=== PATIENT | female | born 1940 | race Caucasian/White ===

== ENCOUNTER 2017-02-05 10:35 | Day surgery (SDC) | payer MEDICARE ==
[2017-02-04 14:23] VITALS: BMI 46.0
[~2017-02-05 10:35] MED LIST: LACTATED RINGERS 1,000 ML IV SCH
[2017-02-05 10:57] VITALS: TEMP 98.8
[2017-02-05] MEDS ORDERED: LIDOCAINE 1% 20 ML VIAL (10MG/ML) FOR IV START INTRADERMA ONE (10:59)
[2017-02-05] MEDS ORDERED: LIDOCAINE 1% INJ 10MG/ML (20 ML MDV) ONE (11:01)
[2017-02-05] MEDS ORDERED: PROPOFOL 10 MG/ML 20 ML VIAL IV ONE (11:01)
--- NOTE | 2017-02-05 11:04 | P.GSHP ---
History of Present Illness H&P Date: 02/05/17 Chief Complaint: GI bleed, GERD This a 76-year-old female who's had complaints of GI bleed and GERD. She does today for EGD and colonoscopy. Patient states his he has anemia. - Constitutional Constitutional: Reports as per HPI Past Medical History Past Medical History: Asthma, Fibromyalgia, GERD/Reflux, Hypertension, Renal Disease, Thyroid Disorder Additional Past Medical History / Comment(s): anemia History of Any Multi-Drug Resistant Organisms: None Reported Past Surgical History: Appendectomy, Hysterectomy, Joint Replacement, Tonsillectomy Additional Past Surgical History / Comment(s): rt knee replacement, rt cataract Past Anesthesia/Blood Transfusion Reactions: Motion Sickness Smoking Status: Former smoker Past Alcohol Use History: None Reported Additional Past Alcohol Use History / Comment(s): smoked 13 years 1ppd quit 1973 Past Drug Use History: None Reported - Past Family History Mother Family Medical History: No Reported History Medications and Allergies Home Medications Medication Instructions Recorded Confirmed Type [id number] 1 each PO DAILY PRN 02/04/17 02/04/17 History [Excedrin] Cetirizine HCl 10 mg PO DAILY 02/04/17 02/04/17 History DULoxetine HCL [Cymbalta] 60 mg PO DAILY 02/04/17 02/04/17 History Ferrous Sulfate [Feosol] 325 mg PO DAILY 02/04/17 02/04/17 History Fluticasone/Salmeterol [Advair 1 inhalation PO BID 02/04/17 02/04/17 History 500-50 Diskus] HYDROcodone/APAP 5-325MG [[place] 1 tab PO BID 02/04/17 02/04/17 History 5-325] Lovastatin [Mevacor] 40 mg PO HS 02/04/17 02/04/17 History Magnesium Gluconate [Magonate] 250 mg PO DAILY 02/04/17 02/04/17 History Melatonin 5 mg PO HS 02/04/17 02/04/17 History Multivitamins, Thera [Multivitamin] 1 tab PO DAILY 02/04/17 02/04/17 History Nortriptyline [Pamelor] 50 mg PO HS 02/04/17 02/04/17 History Omeprazole 20 mg PO BID 02/04/17 02/04/17 History Pregabalin [Lyrica] 75 mg PO BID 02/04/17 02/04/17 History Thyroid,Pork [[place] Thyroid] 90 mg PO DAILY 02/04/17 02/04/17 History Topiramate [Topamax] 100 mg PO BID 02/04/17 02/04/17 History Triamcinolone Acetonide [Nasacort] 1 spray EA NOSTRIL DAILY 02/04/17 02/04/17 History amLODIPine BESYLATE [Norvasc] 5 mg PO BID 02/04/17 02/04/17 History diphenhydrAMINE [Benadryl] 150 mg PO HS 02/04/17 02/04/17 History Allergies Allergy/AdvReac Type Severity Reaction Status Date / Time peanut Allergy Anaphylaxis Verified 02/04/17 13:45 Surgical - Exam Vital Signs Temp Pulse Resp BP Pulse Ox 98.8 F 92 20 157/83 92 L 02/05/17 10:55 02/05/17 10:55 02/05/17 10:55 02/05/17 10:55 02/05/17 10:55 - General well developed, no distress - Eyes PERRL - ENT normal pinna - Neck no masses - Respiratory normal expansion - Cardiovascular Rhythm: regular - Abdomen Abdomen: soft, non tender Assessment and Plan Plan: GERD, GI bleed, anemia. We'll perform EGD and colonoscopy.
--- NOTE | 2017-02-05 11:39 | P.OP ---
Date of Procedure: 02/05/17 Preoperative Diagnosis: Anemia GERD, GI bleed Postoperative Diagnosis: Antral gastritis Internal and external hemorrhoids Implants: EGD Colonoscopy Anesthesia: MAC Surgeon: Joon Salcedo Pathology: other (Antrum) Condition: stable Disposition: PACU Description of Procedure: The patient's placed on the endoscopy table in the lateral position. She received IV sedation. The gastroscope some placed oropharynx and passed into the esophagus and into the stomach. The scope was then placed through the pylorus. The first and second portion of the duodenum appeared normal. The scope was then brought back and the antrum and this appeared mildly inflamed and a biopsy was performed. Scope was then retroflexed and the remainder of the stomach appeared normal. There was no evidence of a hiatal hernia. The GE junction was at 47 is. The distal esophagus appeared normal. The proximal esophagus appeared normal. Scope was withdrawn for patient. Next digital rectal exam was performed which revealed significant external and internal hemorrhoids. The flexible pediatric colonoscope was then placed in the patient's anus passed throughout the colon. The scope was passed into the proximal right colon however the cecum cannot be visualized secondary to tortuosity bowel. This point the scope was withdrawn. The ascending colon hepatic flexure transverse colon descending colon appeared normal. The sigmoid colon appeared normal. The scope was then brought back the rectum this appeared normal. There is no evidence of blood in the colon. The scope was then brought through the anus and significant internal and external hemorrhoids were visualized. The scope was withdrawn for patient. The patient stated prior to the procedure that she does not wish to have a barium enema performed. I would recommend performing outpatient computed tomography scan to evaluate her right colon.
[2017-02-05 11:49] VITALS: RESP 18
[2017-02-05 11:55] VITALS: BP 129/72; PULSE 75
== END 2017-02-05 12:30 | disposition home or self-care (01) ==
LOC: ORWHC2ENDO 10:35
PROVIDERS: ATTEND Surgery
DX: K29.50 Unspecified chronic gastritis without bleeding (principal); Z87.19 Personal history of other diseases of the digestive system; K64.8 Other hemorrhoids; K64.4 Residual hemorrhoidal skin tags; D50.9 Iron deficiency anemia, unspecified; K21.9 Gastro-esophageal reflux disease without esophagitis; J45.909 Unspecified asthma, uncomplicated; M79.7 Fibromyalgia; I10 Essential (primary) hypertension; N28.9 Disorder of kidney and ureter, unspecified; E07.9 Disorder of thyroid, unspecified; Z79.82 Long term (current) use of aspirin; Z79.891 Long term (current) use of opiate analgesic; Z79.51 Long term (current) use of inhaled steroids; Z79.899 Other long term (current) drug therapy; Z91.010 Allergy to peanuts; Z87.891 Personal history of nicotine dependence
CPT/HCPCS: 88305; 88342; 45378; 43239; J2001; J2704

== ENCOUNTER 2017-03-22 06:56 | Day surgery (SDC) | payer MEDICARE ==
[2017-03-21 10:42] VITALS: BMI 41.5
[~2017-03-22 06:56] MED LIST changes: +DEXAMETHASONE SOD PHOSPHATE 10 MG/ML 1 ML VIAL IV ONE; +HEPARIN SODIUM,PORCINE 5,000 UNIT/ML 1 ML VIAL SQ ONE; +HYDROmorphone 1 MG/ML 1 ML SYRINGE IVP PRN; +LIDOCAINE 1% 20 ML VIAL (10MG/ML) FOR IV START INTRADERMA PRN; +MIDAZOLAM 2 MG/2 ML VIAL IV PRN; +ONDANSETRON 4 MG/2 ML VIAL IVP ONE; +Pre Op ABX Message 1 EACH MISC MISCELLANE ONE; +SCOPOLAMINE 1.5MG/72HR PATCH TRANSDERM ONE
[2017-03-22] MEDS ORDERED: LACTATED RINGERS 1,000 ML IV ONE (07:35)
[2017-03-22 07:52] LABS: Glucose,Whole Blood 109 mg/dL (75-99)
[2017-03-22 08:04] LABS: Basophils % (A) 1 %; CH 30.4; CHCM 31.4; Eosinophils # (A) 0.2 k/uL (0-0.7); Eosinophils % (A) 3 %; HCT 32.8 % (34.0-46.0); HGB 10.1 gm/dL (11.4-16.0); Hypochromasia Slight; Luc # (Auto) 0.12; Luc % (Auto) 2; Lymphocytes # (A) 1.4 k/uL (1.0-4.8); Lymphocytes % (A) 22 %; MCH 30.1 pg (25.0-35.0); MCHC 30.8 g/dL (31.0-37.0); MCV 97.5 fL (80.0-100.0); Mean Platelet Volume 8.7; Monocytes # (A) 0.3 k/uL (0-1.0); Monocytes % (A) 5 %; Neutrophils # (A) 4.4 k/uL (1.3-7.7); Neutrophils % (A) 68 %; RBC 3.37 m/uL (3.80-5.40); RDW 14.7 % (11.5-15.5); WBC 6.5 k/uL (3.8-10.6); WBC (Perox) 6.52
[2017-03-22] MEDS ORDERED: NA PHOS,M-B/NA PHOS,DI-BA 133 ML ENEMA RECTAL ONE (08:06)
[2017-03-22 08:24] LABS: Anion Gap 8 mmol/L; Blood Urea Nitrogen 17 mg/dL (7-17); Calcium 8.8 mg/dL (8.4-10.2); Carbon Dioxide 24 mmol/L (22-30); Chloride 112 mmol/L (98-107); Glucose 105 mg/dL (74-99); Non-African American GFR(MDRD) 50 (>60 ml/min/1.73 sqM); Potassium 3.8 mmol/L (3.5-5.1); Sodium 144 mmol/L (137-145)
--- NOTE | 2017-03-22 08:33 | P.GSHP ---
History of Present Illness H&P Date: 03/22/17 Chief Complaint: Internal and external hemorrhoids This a 76-year-old female referred from Dr. Daniel. Patient presents today for hemorrhoidectomy. She's had issues with hemorrhoids. Past Medical History Past Medical History: Asthma, Fibromyalgia, GERD/Reflux, Hearing Disorder / Deafness, Hypertension, Renal Disease, Skin Disorder, Thyroid Disorder Additional Past Medical History / Comment(s): ANEMIA (HX OF IRON INFUSIONS), MIGRAINE HEADACHES, STATES "LITTLE SORES" ON HER FACE AT SCALP LINE., [place] (DOES NOT WEAR HER HEARING AIDS), STATES BLEEDING HEMORRHOIDS. History of Any Multi-Drug Resistant Organisms: None Reported Past Surgical History: Appendectomy, Heart Catheterization, Hysterectomy, Joint Replacement, Tonsillectomy Additional Past Surgical History / Comment(s): rt knee replacement, madonna cataract. Past Anesthesia/Blood Transfusion Reactions: Motion Sickness Past Psychological History: No Psychological Hx Reported Smoking Status: Former smoker Past Alcohol Use History: None Reported Additional Past Alcohol Use History / Comment(s): smoked 13 years ,1ppd, quit 1973 Past Drug Use History: None Reported - Past Family History Mother Family Medical History: No Reported History Father Family Medical History: Cancer Additional Family Medical History / Comment(s): lung cancer Medications and Allergies Home Medications Medication Instructions Recorded Confirmed Type [id number] 1 each PO DAILY PRN 02/04/17 03/21/17 History [Excedrin] Cetirizine HCl 10 mg PO DAILY 02/04/17 03/21/17 History DULoxetine HCL [Cymbalta] 60 mg PO DAILY 02/04/17 03/21/17 History Ferrous Sulfate [Feosol] 325 mg PO DAILY 02/04/17 03/21/17 History Fluticasone/Salmeterol [Advair 1 inhalation PO BID 02/04/17 03/21/17 History 500-50 Diskus] HYDROcodone/APAP 5-325MG [[place] 1 tab PO BID 02/04/17 03/22/17 History 5-325] Lovastatin [Mevacor] 40 mg PO HS 02/04/17 03/21/17 History Magnesium Gluconate [Magonate] 250 mg PO DAILY 02/04/17 03/21/17 History Melatonin 5 mg PO HS 02/04/17 03/21/17 History Multivitamins, Thera [Multivitamin] 1 tab PO DAILY 02/04/17 03/21/17 History Nortriptyline [Pamelor] 50 mg PO HS 02/04/17 03/21/17 History Omeprazole 40 mg PO HS 02/04/17 03/21/17 History Pregabalin [Lyrica] 75 mg PO BID 02/04/17 03/21/17 History Thyroid,Pork [[place] Thyroid] 90 mg PO DAILY 02/04/17 03/21/17 History Topiramate [Topamax] 100 mg PO BID 02/04/17 03/21/17 History Triamcinolone Acetonide [Nasacort] 1 spray EA NOSTRIL HS 02/04/17 03/21/17 History amLODIPine BESYLATE [Norvasc] 5 mg PO DAILY 02/04/17 03/21/17 History diphenhydrAMINE [Benadryl] 150 mg PO HS 02/04/17 03/21/17 History Biotin 5 mg PO DAILY 03/21/17 03/21/17 History Calcium Carbonate/Vitamin D3 1 each PO DAILY 03/21/17 03/21/17 History [Calcium 600-Vit D3 400 Caplet] Ketoconazole 2% Cream [Nizoral 2%] 1 applic TOPICAL BID PRN 03/21/17 03/21/17 History Psyllium Husk (with Sugar) 1 dose PO DAILY 03/21/17 03/21/17 History [Metamucil Powder] Allergies Allergy/AdvReac Type Severity Reaction Status Date / Time peanut Allergy Anaphylaxis Verified 03/21/17 09:37 Surgical - Exam Vital Signs Temp Pulse Resp BP Pulse Ox 98.0 F 89 20 143/78 98 03/22/17 07:26 03/22/17 07:26 03/22/17 07:26 03/22/17 07:26 03/22/17 07:26 - General well developed, no distress - Eyes PERRL - ENT normal pinna - Neck no masses - Respiratory normal expansion - Cardiovascular Rhythm: regular - Abdomen Abdomen: soft - Rectum External/internal hemorrhoids Results - Labs 03/22/17 07:54 03/22/17 07:54 Abnormal Lab Results - Last 24 Hours (Table) 03/22/17 03/22/17 03/22/17 Range/Units 07:41 07:54 07:54 RBC 3.37 L (3.80-5.40) m/uL Hgb 10.1 L (11.4-16.0) gm/dL Hct 32.8 L (34.0-46.0) % MCHC 30.8 L (31.0-37.0) g/dL Chloride 112 H (98-107) mmol/L Creatinine 1.08 H (0.52-1.04) mg/dL Glucose 105 H (74-99) mg/dL POC Glucose (mg/dL) 109 H (75-99) mg/dL Diabetes panel 03/22/17 Range/Units 07:54 Sodium 144 (137-145) mmol/L Potassium 3.8 (3.5-5.1) mmol/L Chloride 112 H (98-107) mmol/L Carbon Dioxide 24 (22-30) mmol/L BUN 17 (7-17) mg/dL Creatinine 1.08 H (0.52-1.04) mg/dL Glucose 105 H (74-99) mg/dL Calcium 8.8 (8.4-10.2) mg/dL Calcium panel 03/22/17 Range/Units 07:54 Calcium 8.8 (8.4-10.2) mg/dL Pituitary panel 03/22/17 Range/Units 07:54 Sodium 144 (137-145) mmol/L Potassium 3.8 (3.5-5.1) mmol/L Chloride 112 H (98-107) mmol/L Carbon Dioxide 24 (22-30) mmol/L BUN 17 (7-17) mg/dL Creatinine 1.08 H (0.52-1.04) mg/dL Glucose 105 H (74-99) mg/dL Calcium 8.8 (8.4-10.2) mg/dL Adrenal panel 03/22/17 Range/Units 07:54 Sodium 144 (137-145) mmol/L Potassium 3.8 (3.5-5.1) mmol/L Chloride 112 H (98-107) mmol/L Carbon Dioxide 24 (22-30) mmol/L BUN 17 (7-17) mg/dL Creatinine 1.08 H (0.52-1.04) mg/dL Glucose 105 H (74-99) mg/dL Calcium 8.8 (8.4-10.2) mg/dL Assessment and Plan Plan: Internal and external hemorrhoids. We'll perform hemorrhoidectomy.
[2017-03-22] MEDS ORDERED: BUPIVACAIN-EPI 0.25%-1:200,000 30 ML VIAL SQ ONE (08:55)
[2017-03-22] MEDS ORDERED: PROPOFOL 10 MG/ML 20 ML VIAL IV ONE (09:09)
[2017-03-22] MEDS ORDERED: NEOSTIGMINE 1 MG/ML 10 ML VIAL ONE (09:09)
[2017-03-22] MEDS ORDERED: LIDOCAINE 1% INJ 10MG/ML (20 ML MDV) ONE (09:09)
[2017-03-22] MEDS ORDERED: GLYCOPYRROLATE 0.2 MG/ML 2 ML VIAL ONE (09:09)
[2017-03-22] MEDS ORDERED: ROCURONIUM BROMIDE 10 MG/ML 10 ML VIAL IV ONE (09:09)
[2017-03-22] MEDS ORDERED: MIDAZOLAM 2 MG/2 ML VIAL ONE (09:09)
[2017-03-22] MEDS ORDERED: fentaNYL (PF) 50 MCG/ML 2 ML AMP ONE (09:09)
[2017-03-22] MEDS ORDERED: SUCCINYLCHOLINE CHLORIDE 100 MG/5 ML SYR IV ONE (09:09)
[2017-03-22] MEDS ORDERED: GELATIN SPONGE,ABSORB (SMALL) 1 EACH SPONGE TOPICAL ONE (09:47)
[2017-03-22] MEDS ORDERED: GELATIN SPONGE,ABSORB (LARGE) 1 EACH SPONGE TOPICAL ONE (09:48)
--- NOTE | 2017-03-22 09:55 | P.OP ---
Date of Procedure: 03/22/17 Preoperative Diagnosis: Internal and external hemorrhoids Postoperative Diagnosis: Internal and external hemorrhoids Procedure(s) Performed: Internal and external hemorrhoidectomy Anesthesia: PERLA Surgeon: Joon Salcedo Estimated Blood Loss (ml): 5 Pathology: other (Internal and external hemorrhoids) Condition: stable Disposition: PACU Description of Procedure: The patient's placed on the operating table in the prone jackknife position after receiving general anesthesia. Her perianal area was prepped and draped in usual sterile fashion. The patient significant internal and external hemorrhoids. The left lateral hemorrhoidal column was exposed using the anal retractor and then using the Harmonic scissors the hemorrhoidectomy was performed. Allis clamps were used to grasp the internal and external hemorrhoids then the hemorrhoid was performed using the Harmonic scissors. Next the right anterior and right posterior hemorrhoidal column were removed in identical fashion. The perianal area was injected with 1% local Xylocaine. The anus was inspected for bleeding there is no bleeding seen. The anus was then packed with Gelfoam. Patient was sent to recovery room stable condition.
[2017-03-22 10:17] VITALS: TEMP 97.4
[2017-03-22 11:38] VITALS: RESP 20
[2017-03-22] MEDS ORDERED: HYDROcodone/APAP 7.5-325MG 1 EACH TAB PO ONE (11:53)
[2017-03-22 12:17] VITALS: BP 128/63; PULSE 84
== END 2017-03-22 13:08 | disposition home or self-care (01) ==
LOC: OR 06:56
PROVIDERS: ATTEND Surgery
DX: K64.8 Other hemorrhoids (principal); K64.4 Residual hemorrhoidal skin tags; J45.909 Unspecified asthma, uncomplicated; Z87.891 Personal history of nicotine dependence; M79.7 Fibromyalgia; K21.9 Gastro-esophageal reflux disease without esophagitis; I10 Essential (primary) hypertension; E07.9 Disorder of thyroid, unspecified; N19 Unspecified kidney failure; Z79.82 Long term (current) use of aspirin; Z79.891 Long term (current) use of opiate analgesic; Z79.51 Long term (current) use of inhaled steroids; Z79.899 Other long term (current) drug therapy; Z91.010 Allergy to peanuts
CPT/HCPCS: 93005; 88304; 80048; 85025; 46260; J2250; J1644; J1100; J2710; J2405; J2001; J3010; J0330; J2704

== ENCOUNTER → 2017-09-16 | Outpatient (CLI) | payer MEDICARE ==
--- NOTE | 2017-09-17 09:01 | MM ---
Reason for exam: screening (asymptomatic). Last mammogram was performed 1 year and 2 months ago. History: Patient is postmenopausal. Physical Findings: A clinical breast exam by your physician is recommended on an annual basis and results should be correlated with mammographic findings. MG 3D Screening Mammo W/Cad Bilateral CC and MLO view(s) were taken. Prior study comparison: July 05, 2016, bilateral MG screening mammo w CAD. January 05, 2015, bilateral MG screening mammo w CAD. There are scattered fibroglandular densities. There is no discrete abnormality. No significant changes when compared with prior studies. ASSESSMENT: Negative, BI-RAD 1 RECOMMENDATION: Routine screening mammogram of both breasts in 1 year.
== END | disposition home or self-care (01) ==
LOC: RADMAMWWP 14:33
PROVIDERS: ATTEND Family Medicine
DX: Z12.31 Encounter for screening mammogram for malignant neoplasm of breast (principal)
CPT/HCPCS: 77063; G0202

== ENCOUNTER 2018-01-06 12:10 | Inpatient (IN) | payer MEDICARE ==
[2018-01-06] MEDS ORDERED: IPRATROPIUM-ALBUTEROL 3 ML NEB INHALATION STA ×2 (12:41→15:25)
[2018-01-06] MEDS ORDERED: methylPREDNISolone SOD SUCCI 125 MG/2 ML VIAL IV STA (12:41)
[2018-01-06] MEDS ORDERED: LEVOFLOXACIN 750MG-D5W PMX 750 MG in DEXTROSE/WATER 1 150ML.BAG IVPB STA (12:41)
--- NOTE | 2018-01-06 13:33 | ED ---
SOB HPI - General Chief Complaint: Shortness of Breath Stated Complaint: Diff Breathing Time Seen by Provider: 01/06/18 12:35 Source: patient Mode of arrival: ambulatory Limitations: no limitations - History of Present Illness Initial Comments: This 77-year-old white female presents with a complaint of shortness of breath and wheezing. She has had this for approximately one week. She has a long history of asthma. She barely saw her primary care physician this morning and they gave her breathing treatment and sent her to the emergency department. She apparently was on some steroids last week for this as well. She's been coughing significantly and has had some yellowish greenish production. She denies any actual fevers. She denies any chest pain. The shortness of breath is worse with any exertion. She has chronic leg pain due to her fibromyalgia but there is no change. She rates her symptoms is fairly severe. No other complaints or modifying factors. - Related Data Home Medications Medication Instructions Recorded Confirmed Cetirizine HCl 10 mg PO DAILY 02/04/17 01/06/18 DULoxetine HCL [Cymbalta] 60 mg PO DAILY 02/04/17 01/06/18 Ferrous Sulfate [Feosol] 325 mg PO DAILY 02/04/17 01/06/18 Fluticasone/Salmeterol [Advair 1 inhalation PO RT-BID 02/04/17 01/06/18 500-50 Diskus] Lovastatin [Mevacor] 40 mg PO HS 02/04/17 01/06/18 Melatonin 5 mg PO HS 02/04/17 01/06/18 Multivitamins, Thera [Multivitamin] 1 tab PO DAILY 02/04/17 01/06/18 Nortriptyline [Pamelor] 50 mg PO HS 02/04/17 01/06/18 Omeprazole 40 mg PO HS 02/04/17 01/06/18 Thyroid,Pork [[place] Thyroid] 90 mg PO DAILY 02/04/17 01/06/18 Topiramate [Topamax] 100 mg PO BID 02/04/17 01/06/18 Triamcinolone Acetonide [Nasacort] 1 spray EA NOSTRIL HS 02/04/17 01/06/18 amLODIPine BESYLATE [Norvasc] 5 mg PO DAILY 02/04/17 01/06/18 diphenhydrAMINE [Benadryl] 150 mg PO HS 02/04/17 01/06/18 Calcium Carbonate/Vitamin D3 1 tab PO BID 03/21/17 01/06/18 [Calcium 600-Vit D3 400 Caplet] Ketoconazole 2% Cream [Nizoral 2%] 1 applic TOPICAL BID PRN 03/21/17 01/06/18 Celecoxib [CeleBREX] 200 mg PO DAILY 01/06/18 01/06/18 Magnesium Oxide [Mag-Ox] 250 mg PO DAILY 01/06/18 01/06/18 Nadolol [Corgard] 20 mg PO DAILY 01/06/18 01/06/18 Spironolactone 50 mg PO DAILY 01/06/18 01/06/18 Allergies Allergy/AdvReac Type Severity Reaction Status Date / Time peanut Allergy Anaphylaxis Verified 01/06/18 13:17 Review of Systems ROS Statement: Those systems with pertinent positive or pertinent negative responses have been documented in the HPI. ROS Other: All systems not noted in ROS Statement are negative. Past Medical History Past Medical History: Asthma, Fibromyalgia, GERD/Reflux, Hearing Disorder / Deafness, Hypertension, Renal Disease, Skin Disorder, Thyroid Disorder Additional Past Medical History / Comment(s): ANEMIA (HX OF IRON INFUSIONS), MIGRAINE HEADACHES, STATES "LITTLE SORES" ON HER FACE AT SCALP LINE., [place] (DOES NOT WEAR HER HEARING AIDS), STATES BLEEDING HEMORRHOIDS. History of Any Multi-Drug Resistant Organisms: None Reported Past Surgical History: Appendectomy, Heart Catheterization, Hysterectomy, Joint Replacement, Tonsillectomy Additional Past Surgical History / Comment(s): rt knee replacement, madonna cataract. Past Anesthesia/Blood Transfusion Reactions: Motion Sickness Past Psychological History: No Psychological Hx Reported Smoking Status: Former smoker Past Alcohol Use History: None Reported Past Drug Use History: None Reported - Past Family History Mother Family Medical History: No Reported History Father Family Medical History: Cancer Additional Family Medical History / Comment(s): lung cancer General Exam - General Exam Comments Initial Comments: GENERAL: The patient is well nourished and well hydrated. VITAL SIGNS: Heart rate, blood pressure, respiratory rate reviewed as recorded in nurse's notes. EYES: Pupils are round and reactive. Extraocular movements are intact. No conjunctival / lid redness or swelling. ENT: No external evidence of injury, swelling, or ecchymosis. Airway is patent. Throat is clear. NECK: Nontender. No swelling or evidence of injury. No subcutaneous emphysema. Trachea is midline. No thyroid mass. HEART: Regular rate and rhythm. Good peripheral pulses. LUNGS/CHEST: Significant wheezing is noted bilaterally. No ecchymosis, subcutaneous emphysema, or tenderness. ABDOMEN: Abdomen soft without tenderness. No palpable masses or organomegaly. No peritoneal signs. No abdominal wall swelling or ecchymosis. EXTREMITIES: There is mild diffuse tenderness to the legs. Normal muscle tone and function. No thoracolumbar tenderness. NEUROLOGIC: Sensation is grossly intact. Cranial nerve exam reveals face is symmetrical, tongue is midline, speech is clear. SKIN: No abrasions or ecchymosis is noted. No induration or masses noted. PSYCHIATRIC: Alert and oriented. Appropriate behavior and judgment. Limitations: no limitations Course Vital Signs 01/06/18 01/06/18 01/06/18 12:28 13:42 13:43 Temperature 98.2 F Pulse Rate 69 60 Respiratory 18 18 Rate Blood Pressure 138/77 O2 Sat by Pulse 93 L 97 Oximetry 01/06/18 13:58 Temperature Pulse Rate 60 Respiratory Rate Blood Pressure O2 Sat by Pulse Oximetry Medical Decision Making - Medical Decision Making The patient was seen and examined. All diagnostics were reviewed. EKG shows a normal sinus rhythm at a rate of 63. There is no acute ST-T wave changes noted. The ME intervals 142, QRS duration is 84, and the QTc interval is 415. The patient also receives some IV Solu-Medrol and a double DuoNeb breathing treatment. She also receives IV Levaquin. The laboratories reviewed and does show some hyponatremia as well as some renal insufficiency and elevation of CO2. The chest x-ray is reviewed and shows some bronchial thickening and likely pneumonia. Upon my evaluation the chest x-ray does appear that she likely does have left lower lobe pneumonia. On recheck she states that she does not feel any better. Her influenza test came back positive. Additional breathing treatments are ordered. It is felt as though she would require admission to hospital for further treatment and she is agreeable. Case will be discussed with internal medicine shortly. - Lab Data Result diagrams: 01/06/18 13:30 01/06/18 13:30 Lab Results 01/06/18 01/06/18 01/06/18 Range/Units 13:30 13:30 13:30 WBC 7.5 (3.8-10.6) k/uL RBC 3.84 (3.80-5.40) m/uL Hgb 11.4 (11.4-16.0) gm/dL Hct 37.5 (34.0-46.0) % MCV 97.8 (80.0-100.0) fL MCH 29.7 (25.0-35.0) pg MCHC 30.4 L (31.0-37.0) g/dL RDW 14.0 (11.5-15.5) % Plt Count 157 (150-450) k/uL Neutrophils % 70 % Lymphocytes % 20 % Monocytes % 8 % Eosinophils % 0 % Basophils % 0 % Neutrophils # 5.3 (1.3-7.7) k/uL Lymphocytes # 1.5 (1.0-4.8) k/uL Monocytes # 0.6 (0-1.0) k/uL Eosinophils # 0.0 (0-0.7) k/uL Basophils # 0.0 (0-0.2) k/uL Hypochromasia Slight PT (9.0-12.0) sec INR (<1.2) APTT (22.0-30.0) sec Sodium 149 H (137-145) mmol/L Potassium 3.9 (3.5-5.1) mmol/L Chloride 110 H (98-107) mmol/L Carbon Dioxide 32 H (22-30) mmol/L Anion Gap 7 mmol/L BUN 34 H (7-17) mg/dL Creatinine 1.30 H (0.52-1.04) mg/dL Est GFR (MDRD) Af Amer 48 (>60 ml/min/1.73 sqM) Est GFR (MDRD) Non-Af 40 (>60 ml/min/1.73 sqM) Glucose 80 (74-99) mg/dL Calcium 8.7 (8.4-10.2) mg/dL Total Bilirubin 0.2 (0.2-1.3) mg/dL AST 34 (14-36) U/L ALT 42 (9-52) U/L Alkaline Phosphatase 89 (38-126) U/L Total Creatine Kinase 141 H (30-135) U/L CK-MB (CK-2) 2.3 (0.0-2.4) ng/mL CK-MB (CK-2) Rel Index 1.6 Troponin I 0.012 (0.000-0.034) ng/mL NT-Pro-B Natriuret Pep pg/mL Total Protein 6.4 (6.3-8.2) g/dL Albumin 3.3 L (3.5-5.0) g/dL Influenza Type A RNA (Not Detectd) Influenza Type B (PCR) (Not Detectd) 01/06/18 01/06/18 01/06/18 Range/Units 13:30 13:30 13:30 WBC (3.8-10.6) k/uL RBC (3.80-5.40) m/uL Hgb (11.4-16.0) gm/dL Hct (34.0-46.0) % MCV (80.0-100.0) fL MCH (25.0-35.0) pg MCHC (31.0-37.0) g/dL RDW (11.5-15.5) % Plt Count (150-450) k/uL Neutrophils % % Lymphocytes % % Monocytes % % Eosinophils % % Basophils % % Neutrophils # (1.3-7.7) k/uL Lymphocytes # (1.0-4.8) k/uL Monocytes # (0-1.0) k/uL Eosinophils # (0-0.7) k/uL Basophils # (0-0.2) k/uL Hypochromasia PT 10.4 (9.0-12.0) sec INR 1.1 (<1.2) APTT 22.4 (22.0-30.0) sec Sodium (137-145) mmol/L Potassium (3.5-5.1) mmol/L Chloride (98-107) mmol/L Carbon Dioxide (22-30) mmol/L Anion Gap mmol/L BUN (7-17) mg/dL Creatinine (0.52-1.04) mg/dL Est GFR (MDRD) Af Amer (>60 ml/min/1.73 sqM) Est GFR (MDRD) Non-Af (>60 ml/min/1.73 sqM) Glucose (74-99) mg/dL Calcium (8.4-10.2) mg/dL Total Bilirubin (0.2-1.3) mg/dL AST (14-36) U/L ALT (9-52) U/L Alkaline Phosphatase (38-126) U/L Total Creatine Kinase (30-135) U/L CK-MB (CK-2) (0.0-2.4) ng/mL CK-MB (CK-2) Rel Index Troponin I (0.000-0.034) ng/mL NT-Pro-B Natriuret Pep 905 pg/mL Total Protein (6.3-8.2) g/dL Albumin (3.5-5.0) g/dL Influenza Type A RNA Detected H (Not Detectd) Influenza Type B (PCR) Not Detected (Not Detectd) Disposition Clinical Impression: Asthma exacerbation, Hypoxia, Dyspnea, Bronchospasm, Influenza, Pneumonia, Morbid obesity, Hypernatremia Disposition: ADMITTED IP TO THIS HOSP Condition: Fair Referrals: Ariane Daniel DO [Primary Care Provider] - 1-2 days Time of Disposition: 15:28 Decision Date: 01/06/18 Decision Time: 15:28
[2018-01-06 13:58] LABS: Basophils % (A) 0 %; Eosinophils % (A) 0 %; HCT 37.5 % (34.0-46.0); HGB 11.4 gm/dL (11.4-16.0); Hypochromasia Slight; Lymphocytes # (A) 1.5 k/uL (1.0-4.8); Lymphocytes % (A) 20 %; MCH 29.7 pg (25.0-35.0); MCHC 30.4 g/dL (31.0-37.0); MCV 97.8 fL (80.0-100.0); Mean Platelet Volume 7.4; Monocytes # (A) 0.6 k/uL (0-1.0); Monocytes % (A) 8 %; Neutrophils # (A) 5.3 k/uL (1.3-7.7); Neutrophils % (A) 70 %; Platelet Count 157 k/uL (150-450); RBC 3.84 m/uL (3.80-5.40); WBC 7.5 k/uL (3.8-10.6)
[2018-01-06 14:05] LABS: INR 1.1 (<1.2); Partial Thromboplastin Time 22.4 sec (22.0-30.0); Prothrombin Time 10.4 sec (9.0-12.0)
[2018-01-06 14:14] LABS: Albumin 3.3 g/dL (3.5-5.0); Calcium 8.7 mg/dL (8.4-10.2); Potassium 3.9 mmol/L (3.5-5.1); Total Bilirubin 0.2 mg/dL (0.2-1.3); Total Protein 6.4 g/dL (6.3-8.2)
[2018-01-06 14:31] LABS: Creatine Kinase MB 2.3 ng/mL (0.0-2.4); Troponin I 0.012 ng/mL (0.000-0.034)
--- NOTE | 2018-01-06 15:13 | XR ---
EXAMINATION TYPE: XR chest 2V DATE OF EXAM: 01/06/2018 COMPARISON: None HISTORY: 77-year-old female difficulty breathing, wheezing and cough TECHNIQUE: AP and lateral views FINDINGS: The heart is mildly enlarged. Slight prominence to the right side of the mediastinum is unchanged fro m CT of 10/30/2017. Peribronchial cuffing is present. No consolidation or pleural effusion. Degenerati ve changes in the IMPRESSION: 1. Mild cardiomegaly. 2. Bronchial wall thickening could reflect bronchitis, chronic asthma, atypical pneumonias, or mild p ulmonary vascular congestion.
[2018-01-06] MEDS ORDERED: PNEUMONIA PROTOCOL UTILIZED 1 EACH MISC PO PRN (15:28)
[2018-01-06] MEDS ORDERED: CLOTRIMAZOLE 1% CREAM 15 GM TUBE TOPICAL PRN (15:30)
[2018-01-06] MEDS ORDERED: OSELTAMIVIR 75 MG CAP PO SCH (16:00)
[2018-01-06 17:45] LABS: Glucose,Whole Blood 106 mg/dL (75-99)
[2018-01-06] MEDS: methylPREDNISolone SOD SUCCI 125 MG/2 ML VIAL IV SCH ×2 (18:08→21:36)
[2018-01-06] MEDS ORDERED: BUDESONIDE 0.5 MG/2 ML NEBU INHALATION SCH (20:00)
[2018-01-06 20:51] LABS: Glucose,Whole Blood 148 mg/dL (75-99)
[2018-01-06] MEDS ORDERED: diphenhydrAMINE 50 MG CAP PO SCH (21:00)
[2018-01-06] MEDS: NORTRIPTYLINE 25 MG CAP PO SCH (21:24)
[2018-01-06] MEDS: CALCIUM CARB-VIT D 500MG-200UN 1 EACH TAB PO SCH (21:24)
[2018-01-06] MEDS: MELATONIN 5 MG TABLET PO SCH (21:24)
[2018-01-06] MEDS: TOPIRAMATE 100 MG TAB PO SCH (21:24)
[2018-01-06] MEDS: PANTOPRAZOLE 40 MG TABLET PO SCH (21:24)
[2018-01-06] MEDS: ZOLPIDEM 5 MG TAB PO SCH (21:24)
[2018-01-06] MEDS: ATORVASTATIN 10 MG TAB PO SCH (21:25)
[2018-01-06] MEDS: FLUTICASONE 50MCG/SPRAY NASAL 16GM EA NOSTRIL SCH (21:26)
[2018-01-06] MEDS: INSULIN ASPART 100 UNIT/ML 1 ML 10 ML VIAL SQ SCH (21:35)
[2018-01-06] MEDS: SYMBICORT 160-4.5 MCG INHALER INHALATION SCH (21:49)
[2018-01-06] MEDS: IPRATROPIUM-ALBUTEROL 3 ML NEB INHALATION PRN (21:53)
[2018-01-07 03:40] LABS: Hemoglobin A1C 6.3 % (4.0-6.0)
[2018-01-07] MEDS: THYROID, PORK 30 MG TAB PO SCH (06:29)
[2018-01-07] MEDS: OSELTAMIVIR 60 MG/10 ML ORAL SYRINGE PO SCH ×2 (06:31→20:25)
[2018-01-07] MEDS: IPRATROPIUM-ALBUTEROL 3 ML NEB INHALATION PRN (07:08)
[2018-01-07] MEDS: SYMBICORT 160-4.5 MCG INHALER INHALATION SCH ×2 (07:08→20:33)
[2018-01-07 08:10] LABS: Glucose,Whole Blood 168 mg/dL (75-99)
[2018-01-07] MEDS: ENOXAPARIN 40 MG/0.4 ML SYRINGE SQ SCH (08:15)
[2018-01-07] MEDS: methylPREDNISolone SOD SUCCI 125 MG/2 ML VIAL IV SCH ×4 (08:16→21:22)
[2018-01-07] MEDS: INSULIN ASPART 100 UNIT/ML 1 ML 10 ML VIAL SQ SCH ×4 (08:16→21:20)
[2018-01-07] MEDS: MELOXICAM 7.5 MG TAB PO SCH (08:17)
[2018-01-07] MEDS: LORATADINE 10 MG TAB PO SCH (08:17)
[2018-01-07] MEDS: SPIRONOLACTONE 25 MG TAB PO SCH (08:18)
[2018-01-07] MEDS: DULoxetine HCL 60 MG CAPSULE.DR PO SCH (08:18)
[2018-01-07] MEDS: MAGNESIUM OXIDE 400 MG TAB PO SCH (08:18)
[2018-01-07] MEDS: amLODIPine 5 MG TAB PO SCH (08:18)
[2018-01-07] MEDS: NADOLOL 20 MG TAB PO SCH (08:18)
[2018-01-07] MEDS: CALCIUM CARB-VIT D 500MG-200UN 1 EACH TAB PO SCH ×2 (08:18→20:25)
[2018-01-07] MEDS: TOPIRAMATE 100 MG TAB PO SCH ×2 (08:19→20:25)
[2018-01-07] MEDS: FERROUS SULFATE 325 MG TAB PO SCH (08:19)
[2018-01-07] MEDS: MULTIVITAMINS, THERA 1 EACH TAB PO SCH (08:19)
[2018-01-07 09:36] LABS: Basophils % (A) 0 %; Eosinophils % (A) 0 %; HGB 10.8 gm/dL (11.4-16.0); Hypochromasia Marked; Lymphocytes # (A) 1.1 k/uL (1.0-4.8); Lymphocytes % (A) 18 %; MCH 29.5 pg (25.0-35.0); MCHC 29.1 g/dL (31.0-37.0); MCV 101.1 fL (80.0-100.0); Macrocytosis Slight; Mean Platelet Volume 7.2; Monocytes # (A) 0.3 k/uL (0-1.0); Monocytes % (A) 5 %; Neutrophils # (A) 4.4 k/uL (1.3-7.7); Neutrophils % (A) 75 %; Platelet Count 158 k/uL (150-450); RBC 3.66 m/uL (3.80-5.40); RDW 13.8 % (11.5-15.5); WBC 5.9 k/uL (3.8-10.6)
[2018-01-07 09:44] LABS: Albumin 3.2 g/dL (3.5-5.0); Calcium 9.4 mg/dL (8.4-10.2); Potassium 4.6 mmol/L (3.5-5.1); Total Bilirubin 0.2 mg/dL (0.2-1.3); Total Protein 6.1 g/dL (6.3-8.2)
[2018-01-07] MEDS: IPRATROPIUM-ALBUTEROL 3 ML NEB INHALATION SCH ×3 (10:55→20:35)
--- NOTE | 2018-01-07 11:34 | P.HPIM ---
History of Present Illness H&P Date: 01/07/18 Chief Complaint: Cough with shortness of breath This is a 77-year-old female patient of [facility]. She has a known history of asthma, fibromyalgia, GERD, chronic kidney disease, hypothyroidism and chronic back pain. Patient reports that she has been dealing with a cough since October. However over the last week she is has been struggling with her breathing. She was in to see her back last week and who was concerned about her breathing until surgery report to her family doctor. That same day patient was seen by her PCP and was started on steroids and oral antibiotics. Patient completed treatment was indeed the be evaluated for follow-up yesterday. Her symptoms were not improving and her PCP recommended that she goes to the emergency room. Patient has been admitted to the hospital for influenza A, asthma exacerbation and possible pneumonia. She' s been started on Tamiflu Levaquin and IV Solu-Medrol and bronchodilators. Pulmonary service has been consulted. She is requiring oxygen. She also was found to have some mild acute kidney injury on top for chronic kidney disease with creatinine of 1.30. She is hypernatremic with a sodium 149. Patient denies any fever chills or sweats. Denies any chest pain. Denies any nausea vomiting. Denies any bowel movement changes or urinary symptoms. Review of Systems Please refer to HPI otherwise unremarkable Past Medical History Past Medical History: Asthma, Fibromyalgia, GERD/Reflux, Hearing Disorder / Deafness, Hyperlipidemia, Hypertension, Pneumonia, Renal Disease, Skin Disorder , Thyroid Disorder Additional Past Medical History / Comment(s): ANEMIA (HX OF IRON INFUSIONS), CHRONIC BACK PAIN DDD, BACK INJ,MIGRAINE HEADACHES, STATES "LITTLE SORES" ON HER FACE AT SCALP LINE., [place] (DOES NOT WEAR HER HEARING AIDS),past BLEEDING HEMORRHOIDS (had sx).SINUS,"TOLD ONE KIDNEY SMALLER THAN OTHER AND ONE KIDNEY HAS A CYST ON IT.DIVERTICULOSIS. History of Any Multi-Drug Resistant Organisms: None Reported Past Surgical History: Appendectomy, Heart Catheterization, Hysterectomy, Joint Replacement, Tonsillectomy Additional Past Surgical History / Comment(s): rt knee replacement, madonna cataract.COLONOSCOPY, HEMORRHOIDECTOMY. Past Anesthesia/Blood Transfusion Reactions: Motion Sickness Smoking Status: Former smoker - Past Family History Mother Family Medical History: No Reported History Father Family Medical History: Cancer Additional Family Medical History / Comment(s): lung cancer Medications and Allergies Home Medications Medication Instructions Recorded Confirmed Type Cetirizine HCl 10 mg PO DAILY 02/04/17 01/06/18 History DULoxetine HCL [Cymbalta] 60 mg PO DAILY 02/04/17 01/06/18 History Ferrous Sulfate [Feosol] 325 mg PO DAILY 02/04/17 01/06/18 History Fluticasone/Salmeterol [Advair 1 inhalation PO RT-BID 02/04/17 01/06/18 History 500-50 Diskus] Lovastatin [Mevacor] 40 mg PO HS 02/04/17 01/06/18 History Melatonin 5 mg PO HS 02/04/17 01/06/18 History Multivitamins, Thera [Multivitamin] 1 tab PO DAILY 02/04/17 01/06/18 History Nortriptyline [Pamelor] 50 mg PO HS 02/04/17 01/06/18 History Omeprazole 40 mg PO HS 02/04/17 01/06/18 History Thyroid,Pork [[place] Thyroid] 90 mg PO DAILY 02/04/17 01/06/18 History Topiramate [Topamax] 100 mg PO BID 02/04/17 01/06/18 History Triamcinolone Acetonide [Nasacort] 1 spray EA NOSTRIL HS 02/04/17 01/06/18 History amLODIPine BESYLATE [Norvasc] 5 mg PO DAILY 02/04/17 01/06/18 History diphenhydrAMINE [Benadryl] 150 mg PO HS 02/04/17 01/06/18 History Calcium Carbonate/Vitamin D3 1 tab PO BID 03/21/17 01/06/18 History [Calcium 600-Vit D3 400 Caplet] Ketoconazole 2% Cream [Nizoral 2%] 1 applic TOPICAL BID PRN 03/21/17 01/06/18 History Celecoxib [CeleBREX] 200 mg PO DAILY 01/06/18 01/06/18 History Magnesium Oxide [Mag-Ox] 250 mg PO DAILY 01/06/18 01/06/18 History Nadolol [Corgard] 20 mg PO DAILY 01/06/18 01/06/18 History Spironolactone 50 mg PO DAILY 01/06/18 01/06/18 History Allergies Allergy/AdvReac Type Severity Reaction Status Date / Time peanut Allergy Anaphylaxis Verified 01/06/18 13:17 Physical Exam Vitals: Vital Signs Temp Pulse Pulse Resp BP BP Pulse Ox 01/07/18 11:08 78 01/07/18 10:55 76 01/07/18 07:26 74 01/07/18 07:12 76 95 01/07/18 07:00 98.2 F 75 18 154/94 95 01/06/18 23:00 98.2 F 74 20 160/101 92 L 01/06/18 22:06 72 01/06/18 21:53 72 01/06/18 18:19 18 01/06/18 17:50 92 L 01/06/18 17:45 97.7 F 77 22 155/84 89 L 01/06/18 17:03 98.1 F 80 18 160/72 99 01/06/18 16:13 62 01/06/18 15:50 64 01/06/18 15:33 71 20 155/72 93 L 01/06/18 15:28 99 01/06/18 13:58 60 01/06/18 13:43 18 97 01/06/18 13:42 60 01/06/18 12:28 98.2 F 69 18 138/77 93 L Intake and Output 01/06/18 01/07/18 01/07/18 22:59 06:59 14:59 Other: Voiding Method Toilet # Voids 2 1 Head normocephalic Neck supple Lungs coarse presses with mild wheezing bilaterally Heart regular rate and rhythm S1-S2, no rub or gallop Abdomen is soft nontender nondistended positive bowel sounds no hepatosplenomegaly Extremities no edema Neuro alert and orientated to 3 Results CBC & Chem 7: 01/07/18 08:54 01/07/18 08:54 Labs: Abnormal Lab Results - Last 24 Hours (Table) 01/06/18 01/06/18 01/06/18 Range/Units 13:00 13:30 13:30 RBC (3.80-5.40) m/uL Hgb (11.4-16.0) gm/dL MCV (80.0-100.0) fL MCHC 30.4 L (31.0-37.0) g/dL Sodium (137-145) mmol/L Chloride (98-107) mmol/L Carbon Dioxide (22-30) mmol/L BUN (7-17) mg/dL Creatinine (0.52-1.04) mg/dL Glucose (74-99) mg/dL POC Glucose (mg/dL) (75-99) mg/dL Hemoglobin A1c 6.3 H (4.0-6.0) % Total Creatine Kinase 141 H (30-135) U/L Total Protein (6.3-8.2) g/dL Albumin (3.5-5.0) g/dL Influenza Type A RNA (Not Detectd) 01/06/18 01/06/18 01/06/18 Range/Units 13:30 13:30 17:39 RBC (3.80-5.40) m/uL Hgb (11.4-16.0) gm/dL MCV (80.0-100.0) fL MCHC (31.0-37.0) g/dL Sodium 149 H (137-145) mmol/L Chloride 110 H (98-107) mmol/L Carbon Dioxide 32 H (22-30) mmol/L BUN 34 H (7-17) mg/dL Creatinine 1.30 H (0.52-1.04) mg/dL Glucose (74-99) mg/dL POC Glucose (mg/dL) 106 H (75-99) mg/dL Hemoglobin A1c (4.0-6.0) % Total Creatine Kinase (30-135) U/L Total Protein (6.3-8.2) g/dL Albumin 3.3 L (3.5-5.0) g/dL Influenza Type A RNA Detected H (Not Detectd) 01/06/18 01/07/18 01/07/18 Range/Units 20:49 07:29 08:54 RBC 3.66 L (3.80-5.40) m/uL Hgb 10.8 L (11.4-16.0) gm/dL MCV 101.1 H (80.0-100.0) fL MCHC 29.1 L (31.0-37.0) g/dL Sodium (137-145) mmol/L Chloride (98-107) mmol/L Carbon Dioxide (22-30) mmol/L BUN (7-17) mg/dL Creatinine (0.52-1.04) mg/dL Glucose (74-99) mg/dL POC Glucose (mg/dL) 148 H 168 H (75-99) mg/dL Hemoglobin A1c (4.0-6.0) % Total Creatine Kinase (30-135) U/L Total Protein (6.3-8.2) g/dL Albumin (3.5-5.0) g/dL Influenza Type A RNA (Not Detectd) 01/07/18 Range/Units 08:54 RBC (3.80-5.40) m/uL Hgb (11.4-16.0) gm/dL MCV (80.0-100.0) fL MCHC (31.0-37.0) g/dL Sodium (137-145) mmol/L Chloride (98-107) mmol/L Carbon Dioxide (22-30) mmol/L BUN 36 H (7-17) mg/dL Creatinine 1.26 H (0.52-1.04) mg/dL Glucose 220 H (74-99) mg/dL POC Glucose (mg/dL) (75-99) mg/dL Hemoglobin A1c (4.0-6.0) % Total Creatine Kinase (30-135) U/L Total Protein 6.1 L (6.3-8.2) g/dL Albumin 3.2 L (3.5-5.0) g/dL Influenza Type A RNA (Not Detectd) Thrombosis Risk Factor Assmnt - Choose All That Apply Any of the Below Risk Factors Present?: Yes Each Factor Represents 1 point: Obesity (BMI >25), Serious lung disease incl. pneumonia (< 1month), Swollen legs (current) Each Risk Factor Represents 3 Points: Age 75 years or older Other congenital or acquired thrombophilia - If yes, enter type in comment: No Thrombosis Risk Factor Assessment Total Risk Factor Score: 6 Thrombosis Risk Factor Assessment Level: High Risk Assessment and Plan Assessment: 1. Acute asthma exacerbation: Continue IV Solu-Medrol and bronchodilators. Pulmonary service consulted 2. Influenza A positive continue Tamiflu 3. possible pneumonia on chest x-ray. Patient started on Levaquin in the emergency room 4. Acute on chronic kidney disease stage3. Creatinine is improving. Down from 1.30-1.26 encouraged by mouth fluid intake. Currently off of IV fluids. Does follow nephrology in outpatient setting 5. Hypernatremia on admission with a sodium of 149 now down to 144. 6. Fibromyalgia 7. Chronic back pain 8. Hypothyroidism 9. Hyperlipidemia continue Lipitor 10. Essential hypertension continue Norvasc 11. Steroid-induced hyperglycemia: Continue sliding scale coverage GI prophylaxis Protonix and DVT prophylaxis Lovenox Time with Patient: Greater than 30 (Greater than 50% of the total time spent in counseling and coordination of care. I performed an examination of the patient and discussed their management with the physician Locker Room Supervisor. I have reviewed the Physician Locker Room Supervisor's notes and agree with the documented findings and plan of care)
--- NOTE | 2018-01-07 12:22 | P.CNPUL ---
History of Present Illness Consult date: 01/07/18 Requesting physician: Nancy Cuba Reason for consult: dyspnea, cough, abnormal CXR/CT Chief complaint: Shortness of breath, cough, chills History of present illness: Mrs. Sahni is a 77-year-old white female patient of Dr. Daniel that presented to the hospital on 01/06/2018 at 1210 with complaints of increasing shortness of breath, wheezing, chills, congested cough. Her cough was productive with yellowish greenish sputum. Symptoms had started about a week ago. Patient has muscle aches on a regular basis related to her history of fibromyalgia. She saw her primary care physician who treated her with a breathing treatment, some steroids. She denied any actual fevers she denied any chest pain. Chest x-ray from 01/06/2018 showed mild cardiomegaly, bronchial wall thickening that could be reflective of bronchitis, chronic asthma , atypical pneumonia or mild pulmonary vascular congestion. Twelve-lead EKG showed normal sinus rhythm with a rate of 63 bpm. Lab work did not show any evidence of leukocytosis, WBC was 7.5, hemoglobin 11.4, serum sodium was 149, BUN is 34, creatinine is 1.30. Influenza screen was positive for influenza A. She was started on Tamiflu, Levaquin, nebulized treatments, IV steroids, Symbicort and was admitted for further management. Review of Systems All systems: negative Constitutional: Denies chills, Denies fever Eyes: denies blurred vision, denies pain Ears, nose, mouth and throat: Denies headache, Denies sore throat Cardiovascular: Denies chest pain, Denies shortness of breath Respiratory: Denies cough Gastrointestinal: Denies abdominal pain, Denies diarrhea, Denies nausea, Denies vomiting Genitourinary: Denies dysuria, Denies hematuria Musculoskeletal: Denies myalgias Integumentary: Denies pruritus, Denies rash Neurological: Denies numbness, Denies weakness Psychiatric: Denies anxiety, Denies depression Endocrine: Denies fatigue, Denies weight change Past Medical History Past Medical History: Asthma, Fibromyalgia, GERD/Reflux, Hearing Disorder / Deafness, Hyperlipidemia, Hypertension, Pneumonia, Renal Disease, Skin Disorder , Thyroid Disorder Additional Past Medical History / Comment(s): ANEMIA (HX OF IRON INFUSIONS), CHRONIC BACK PAIN DDD, BACK INJ,MIGRAINE HEADACHES, STATES "LITTLE SORES" ON HER FACE AT SCALP LINE., [place] (DOES NOT WEAR HER HEARING AIDS),past BLEEDING HEMORRHOIDS (had sx).SINUS,"TOLD ONE KIDNEY SMALLER THAN OTHER AND ONE KIDNEY HAS A CYST ON IT.DIVERTICULOSIS. History of Any Multi-Drug Resistant Organisms: None Reported Past Surgical History: Appendectomy, Heart Catheterization, Hysterectomy, Joint Replacement, Tonsillectomy Additional Past Surgical History / Comment(s): rt knee replacement, madonna cataract.COLONOSCOPY, HEMORRHOIDECTOMY. Past Anesthesia/Blood Transfusion Reactions: Motion Sickness Smoking Status: Former smoker - Past Family History Mother Family Medical History: No Reported History Father Family Medical History: Cancer Additional Family Medical History / Comment(s): lung cancer Medications and Allergies Home Medications Medication Instructions Recorded Confirmed Type Cetirizine HCl 10 mg PO DAILY 02/04/17 01/06/18 History DULoxetine HCL [Cymbalta] 60 mg PO DAILY 02/04/17 01/06/18 History Ferrous Sulfate [Feosol] 325 mg PO DAILY 02/04/17 01/06/18 History Fluticasone/Salmeterol [Advair 1 inhalation PO RT-BID 02/04/17 01/06/18 History 500-50 Diskus] Lovastatin [Mevacor] 40 mg PO HS 02/04/17 01/06/18 History Melatonin 5 mg PO HS 02/04/17 01/06/18 History Multivitamins, Thera [Multivitamin] 1 tab PO DAILY 02/04/17 01/06/18 History Nortriptyline [Pamelor] 50 mg PO HS 02/04/17 01/06/18 History Omeprazole 40 mg PO HS 02/04/17 01/06/18 History Thyroid,Pork [[place] Thyroid] 90 mg PO DAILY 02/04/17 01/06/18 History Topiramate [Topamax] 100 mg PO BID 02/04/17 01/06/18 History Triamcinolone Acetonide [Nasacort] 1 spray EA NOSTRIL HS 02/04/17 01/06/18 History amLODIPine BESYLATE [Norvasc] 5 mg PO DAILY 02/04/17 01/06/18 History diphenhydrAMINE [Benadryl] 150 mg PO HS 02/04/17 01/06/18 History Calcium Carbonate/Vitamin D3 1 tab PO BID 03/21/17 01/06/18 History [Calcium 600-Vit D3 400 Caplet] Ketoconazole 2% Cream [Nizoral 2%] 1 applic TOPICAL BID PRN 03/21/17 01/06/18 History Celecoxib [CeleBREX] 200 mg PO DAILY 01/06/18 01/06/18 History Magnesium Oxide [Mag-Ox] 250 mg PO DAILY 01/06/18 01/06/18 History Nadolol [Corgard] 20 mg PO DAILY 01/06/18 01/06/18 History Spironolactone 50 mg PO DAILY 01/06/18 01/06/18 History Allergies Allergy/AdvReac Type Severity Reaction Status Date / Time peanut Allergy Anaphylaxis Verified 01/06/18 13:17 Physical Exam Vitals: Vital Signs Temp Pulse Pulse Resp BP BP Pulse Ox 01/07/18 11:08 78 01/07/18 10:55 76 01/07/18 07:26 74 01/07/18 07:12 76 95 01/07/18 07:00 98.2 F 75 18 154/94 95 01/06/18 23:00 98.2 F 74 20 160/101 92 L 01/06/18 22:06 72 01/06/18 21:53 72 01/06/18 18:19 18 01/06/18 17:50 92 L 01/06/18 17:45 97.7 F 77 22 155/84 89 L 01/06/18 17:03 98.1 F 80 18 160/72 99 01/06/18 16:13 62 01/06/18 15:50 64 01/06/18 15:33 71 20 155/72 93 L 01/06/18 15:28 99 01/06/18 13:58 60 01/06/18 13:43 18 97 01/06/18 13:42 60 01/06/18 12:28 98.2 F 69 18 138/77 93 L Intake and Output 01/06/18 01/07/18 01/07/18 22:59 06:59 14:59 Other: Voiding Method Toilet # Voids 2 1 2 GENERAL EXAM: Alert, 77-year-old white female, comfortable in no apparent distress. HEAD: Normocephalic/atraumatic. EYES: Normal reaction of pupils, equal size. Conjunctiva pink, sclera white. NOSE: Clear with pink turbinates. THROAT: No erythema or exudates. NECK: No masses, no JVD, no thyroid enlargement, no adenopathy. CHEST: No chest wall deformity. Symmetrical expansion. LUNGS: Equal air entry with scattered wheezes CVS: Regular rate and rhythm, normal S1 and S2, no gallops, no murmurs, no rubs ABDOMEN: Soft, nontender. No hepatosplenomegaly, normal bowel sounds, no guarding or rigidity. EXTREMITIES: No clubbing, no edema, no cyanosis, 2+ pulses and upper and lower extremities. MUSCULOSKELETAL: Muscle strength and tone normal. SPINE: No scoliosis or deformity SKIN: No rashes CENTRAL NERVOUS SYSTEM: Alert and oriented -3. No focal deficits, tone is normal in all 4 extremities. PSYCHIATRIC: Alert and oriented -3. Appropriate affect. Intact judgment and insight. Results - Laboratory Findings CBC and BMP: 01/07/18 08:54 01/07/18 08:54 PT/INR, D-dimer PT 10.4 sec (9.0-12.0) 01/06/18 13:30 INR 1.1 (<1.2) 01/06/18 13:30 Abnormal lab findings: Abnormal Labs 01/06/18 01/06/18 01/06/18 13:00 13:30 13:30 RBC Hgb MCV MCHC 30.4 L Sodium Chloride Carbon Dioxide BUN Creatinine Glucose POC Glucose (mg/dL) Hemoglobin A1c 6.3 H Total Creatine Kinase 141 H Total Protein Albumin Influenza Type A RNA 01/06/18 01/06/18 01/06/18 13:30 13:30 17:39 RBC Hgb MCV MCHC Sodium 149 H Chloride 110 H Carbon Dioxide 32 H BUN 34 H Creatinine 1.30 H Glucose POC Glucose (mg/dL) 106 H Hemoglobin A1c Total Creatine Kinase Total Protein Albumin 3.3 L Influenza Type A RNA Detected H 01/06/18 01/07/18 01/07/18 20:49 07:29 08:54 RBC 3.66 L Hgb 10.8 L MCV 101.1 H MCHC 29.1 L Sodium Chloride Carbon Dioxide BUN Creatinine Glucose POC Glucose (mg/dL) 148 H 168 H Hemoglobin A1c Total Creatine Kinase Total Protein Albumin Influenza Type A RNA 01/07/18 08:54 RBC Hgb MCV MCHC Sodium Chloride Carbon Dioxide BUN 36 H Creatinine 1.26 H Glucose 220 H POC Glucose (mg/dL) Hemoglobin A1c Total Creatine Kinase Total Protein 6.1 L Albumin 3.2 L Influenza Type A RNA - Diagnostic Findings Chest x-ray: report reviewed Additional studies: Twelve-lead EKG reviewed Assessment and Plan Plan: Assessment: #1. Acute asthma exacerbation, complicated by influenza A tracheobronchitis, chest x-ray was negative for any clear-cut evidence of pneumonia #2. Acute on chronic kidney disease, patient follows with nephrology on an outpatient basis #3. Hypernatremia, present on admission #4. Nicotine dependence, currently in remission, quit in 1973 #5. Fibromyalgia #6. GERD/reflux #7. Hyperlipidemia, hypertension #8. Hypothyroidism Plan: Continue with current medical treatment, continue Tamiflu, Levaquin, DuoNeb belies treatments, IV Solu-Medrol. Patient already reports some improvement in terms of her dyspnea and wheezing. Chest x-ray did not show any clear evidence of pneumonia. I performed a history & physical examination of the patient and discussed their management with my nurse practitioner, Bhargavi Lucia. I reviewed the nurse practitioner's note and agree with the documented findings and plan of care. Lung sounds are positive for scattered wheezes. The findings and the impression was discussed with the patient. I attest to the documentation by the nurse practitioner. Time with Patient: Greater than 30
[2018-01-07 12:27] LABS: Glucose,Whole Blood 121 mg/dL (75-99)
[2018-01-07] MEDS ORDERED: LEVOFLOXACIN 750MG-D5W PMX 750 MG in DEXTROSE/WATER 1 150ML.BAG IVPB SCH (14:00)
[2018-01-07 17:22] LABS: Glucose,Whole Blood 155 mg/dL (75-99)
[2018-01-07] MEDS: LEVOFLOXACIN 750 MG TAB PO SCH (18:20)
[2018-01-07] MEDS: ZOLPIDEM 5 MG TAB PO SCH (20:25)
[2018-01-07] MEDS: NORTRIPTYLINE 25 MG CAP PO SCH (20:25)
[2018-01-07] MEDS: FLUTICASONE 50MCG/SPRAY NASAL 16GM EA NOSTRIL SCH (20:25)
[2018-01-07] MEDS: PANTOPRAZOLE 40 MG TABLET PO SCH (20:25)
[2018-01-07] MEDS: ATORVASTATIN 10 MG TAB PO SCH (20:25)
[2018-01-07] MEDS: MELATONIN 5 MG TABLET PO SCH (20:25)
[2018-01-07 21:07] LABS: Glucose,Whole Blood 127 mg/dL (75-99)
[2018-01-08] MEDS: THYROID, PORK 30 MG TAB PO SCH (05:36)
[2018-01-08] MEDS: OSELTAMIVIR 60 MG/10 ML ORAL SYRINGE PO SCH ×2 (06:33→18:35)
[2018-01-08 07:51] LABS: Glucose,Whole Blood 136 mg/dL (75-99)
[2018-01-08] MEDS: MELOXICAM 7.5 MG TAB PO SCH (08:32)
[2018-01-08] MEDS: LORATADINE 10 MG TAB PO SCH (08:32)
[2018-01-08] MEDS: methylPREDNISolone SOD SUCCI 125 MG/2 ML VIAL IV SCH ×4 (08:32→22:28)
[2018-01-08] MEDS: MAGNESIUM OXIDE 400 MG TAB PO SCH (08:32)
[2018-01-08] MEDS: TOPIRAMATE 100 MG TAB PO SCH ×2 (08:32→22:02)
[2018-01-08] MEDS: NADOLOL 20 MG TAB PO SCH (08:32)
[2018-01-08] MEDS: INSULIN ASPART 100 UNIT/ML 1 ML 10 ML VIAL SQ SCH ×4 (08:33→22:06)
[2018-01-08] MEDS: CALCIUM CARB-VIT D 500MG-200UN 1 EACH TAB PO SCH ×2 (08:33→22:03)
[2018-01-08] MEDS: SPIRONOLACTONE 25 MG TAB PO SCH (08:33)
[2018-01-08] MEDS: ENOXAPARIN 40 MG/0.4 ML SYRINGE SQ SCH (08:33)
[2018-01-08] MEDS: DULoxetine HCL 60 MG CAPSULE.DR PO SCH (08:33)
[2018-01-08] MEDS: amLODIPine 5 MG TAB PO SCH (08:33)
[2018-01-08 09:11] LABS: Basophils % (A) 0 %; Eosinophils % (A) 0 %; HCT 37.5 % (34.0-46.0); HGB 11.5 gm/dL (11.4-16.0); Lymphocytes % (A) 14 %; MCH 29.7 pg (25.0-35.0); MCHC 30.7 g/dL (31.0-37.0); MCV 96.7 fL (80.0-100.0); Mean Platelet Volume 7.3; Monocytes # (A) 0.3 k/uL (0-1.0); Monocytes % (A) 5 %; Neutrophils # (A) 5.7 k/uL (1.3-7.7); Neutrophils % (A) 79 %; Platelet Count 175 k/uL (150-450); RBC 3.88 m/uL (3.80-5.40); RDW 13.5 % (11.5-15.5); WBC 7.2 k/uL (3.8-10.6)
[2018-01-08] MEDS: IPRATROPIUM-ALBUTEROL 3 ML NEB INHALATION SCH ×4 (09:14→20:46)
[2018-01-08] MEDS: SYMBICORT 160-4.5 MCG INHALER INHALATION SCH ×2 (09:15→20:46)
[2018-01-08 09:31] LABS: Albumin 3.2 g/dL (3.5-5.0); Calcium 9.3 mg/dL (8.4-10.2); Potassium 4.6 mmol/L (3.5-5.1); Total Bilirubin 0.3 mg/dL (0.2-1.3); Total Protein 6.1 g/dL (6.3-8.2)
[2018-01-08 11:53] LABS: Glucose,Whole Blood 122 mg/dL (75-99)
--- NOTE | 2018-01-08 13:03 | P.PN ---
Subjective Progress Note Date: 01/08/18 Principal diagnosis: Acute asthma exacerbation, triggered by influenza A tracheobronchitis Mrs. Sahni is a 77-year-old white female patient of Dr. Daniel that presented to the hospital on 01/06/2018 at 1210 with complaints of increasing shortness of breath, wheezing, chills, congested cough. Her cough was productive with yellowish greenish sputum. Symptoms had started about a week ago. Patient has muscle aches on a regular basis related to her history of fibromyalgia. She saw her primary care physician who treated her with a breathing treatment, some steroids. She denied any actual fevers she denied any chest pain. Chest x-ray from 01/06/2018 showed mild cardiomegaly, bronchial wall thickening that could be reflective of bronchitis, chronic asthma , atypical pneumonia or mild pulmonary vascular congestion. Twelve-lead EKG showed normal sinus rhythm with a rate of 63 bpm. Lab work did not show any evidence of leukocytosis, WBC was 7.5, hemoglobin 11.4, serum sodium was 149, BUN is 34, creatinine is 1.30. Influenza screen was positive for influenza A. She was started on Tamiflu, Levaquin, nebulized treatments, IV steroids, Symbicort and was admitted for further management. On 01/08/2018 patient seen in follow-up. Still remains significantly dyspneic with any exertion, even with ambulation short distances in the room. Lung sounds are positive for end expiratory wheezes, diminished lung sounds throughout. Not bringing up much sputum. She is on 2 L per nasal cannula with O2 sat 96%. She is afebrile. Blood cultures are negative at the 24-hour shante. States she is not back to her baseline yet. We spoke to the patient's daughter regarding her condition, we discussed with her that the patient will need a follow-up on an outpatient basis for evaluation of her pulmonary lung function, asthma, and optimization of her asthma. Today's lab work shows that the BC within normal limits of 7.2, hemoglobin is 11.5, electrolytes are within normal limits, BUN is 37, creatinine is 1.24. Increase patient's activity as tolerated, continue IV steroids, Tamiflu, Levaquin, nebulized treatments and Symbicort. Objective - Vital Signs Vital signs: Vital Signs Temp 98.0 F 01/08/18 07:00 Pulse 72 01/08/18 09:36 Resp 18 02/14/18 09:15 BP 147/84 01/08/18 07:00 Pulse Ox 96 01/08/18 07:00 Intake & Output 01/07/18 01/08/18 01/08/18 18:59 06:59 18:59 Other: # Voids 2 2 - Exam GENERAL EXAM: Alert, 77-year-old white female, comfortable in no apparent distress. HEAD: Normocephalic/atraumatic. EYES: Normal reaction of pupils, equal size. Conjunctiva pink, sclera white. NOSE: Clear with pink turbinates. THROAT: No erythema or exudates. NECK: No masses, no JVD, no thyroid enlargement, no adenopathy. CHEST: No chest wall deformity. Symmetrical expansion. LUNGS: Equal air entry with scattered wheezes CVS: Regular rate and rhythm, normal S1 and S2, no gallops, no murmurs, no rubs ABDOMEN: Soft, nontender. No hepatosplenomegaly, normal bowel sounds, no guarding or rigidity. EXTREMITIES: No clubbing, no edema, no cyanosis, 2+ pulses and upper and lower extremities. MUSCULOSKELETAL: Muscle strength and tone normal. SPINE: No scoliosis or deformity SKIN: No rashes CENTRAL NERVOUS SYSTEM: Alert and oriented -3. No focal deficits, tone is normal in all 4 extremities. PSYCHIATRIC: Alert and oriented -3. Appropriate affect. Intact judgment and insight. - Labs CBC & Chem 7: 01/08/18 08:09 01/08/18 08:09 Labs: Abnormal Lab Results - Last 24 Hours (Table) 01/07/18 01/07/18 01/08/18 Range/Units 16:59 21:06 07:30 MCHC (31.0-37.0) g/dL BUN (7-17) mg/dL Creatinine (0.52-1.04) mg/dL Glucose (74-99) mg/dL POC Glucose (mg/dL) 155 H 127 H 136 H (75-99) mg/dL Total Protein (6.3-8.2) g/dL Albumin (3.5-5.0) g/dL 01/08/18 01/08/18 01/08/18 Range/Units 08:09 08:09 11:48 MCHC 30.7 L (31.0-37.0) g/dL BUN 37 H (7-17) mg/dL Creatinine 1.24 H (0.52-1.04) mg/dL Glucose 135 H (74-99) mg/dL POC Glucose (mg/dL) 122 H (75-99) mg/dL Total Protein 6.1 L (6.3-8.2) g/dL Albumin 3.2 L (3.5-5.0) g/dL Microbiology - Last 24 Hours (Table) 01/06/18 13:30 Blood Culture - Preliminary Blood No Growth after 24 hours Assessment and Plan Plan: Assessment: #1. Acute asthma exacerbation, complicated by influenza A tracheobronchitis, chest x-ray was negative for any clear-cut evidence of pneumonia #2. Acute on chronic kidney disease, patient follows with nephrology on an outpatient basis #3. Hypernatremia, mild, present on admission. Improved, today's sodium is 4.6 #4. Nicotine dependence, currently in remission, quit in 1973 #5. Fibromyalgia #6. GERD/reflux #7. Hyperlipidemia, hypertension #8. Hypothyroidism Plan: Continue with current medical treatment, continue Tamiflu, Levaquin, DuoNeb belies treatments, IV Solu-Medrol. Patient still complaining of significant exertional dyspnea, not ready for discharge yet. We'll continue to follow with you. Patient will need an outpatient follow-up appointment with Dr. Cruz. I performed a history & physical examination of the patient and discussed their management with my nurse practitioner, Bhargavi Lucia. I reviewed the nurse practitioner's note and agree with the documented findings and plan of care. Lung sounds are positive for scattered wheezes. The findings and the impression was discussed with the patient. I attest to the documentation by the nurse practitioner. Time with Patient: Less than 30
[2018-01-08] MEDS: FERROUS SULFATE 325 MG TAB PO SCH (13:09)
[2018-01-08] MEDS: MULTIVITAMINS, THERA 1 EACH TAB PO SCH (13:09)
--- NOTE | 2018-01-08 13:48 | CDI ---
Last Revision, October 2017 Documentation Clarification Form Date: 01/08/2018 1:07:00 PM From: Caitlin Baron RN, CCDS Admit Date: 01/06/2018 3:28:00 PM Patient Name: Concha Sahni Visit Number: [id number] Discharge Date: ATTENTION: The Clinical Documentation Specialists (CDI) and [facility] Coding Staff appreciate your assistance in clarifying documentation. Please respond to the clarification below the line at the bottom and electronically sign. The CDI & [facility] Coding staff will review the response and follow-up if needed. Please note: Queries are made part of the Legal Health Record. If you have any questions, please contact the author of this message via ITS. Dr. Nancy Cuba Acute Asthma exacerbation is documented in the progress note on 01/08/18. Patient history/risk factors: Asthma, Fibromyalgia, Hypertension, Renal Disease Clinical Indicators: Present with increasing shortness of breath, wheezing, chills, and congested cough. 01/06/18 CXR: mild cardiomegaly, bronchial wall thickening that could be reflective of bronchitis, chronic asthma, atypical pneumonia or mild pulmonary vascular congestion Vital Signs: 138/77 69 18 98.2 93 % RA Treatment: Levaquin IV, Solu-Medrol IV (taper) Monitor O2 Sat's Nebulized treatments Symbicort Inhalation Claritin PO In your professional opinion, can you please further specify the Acute Asthma Exacerbation to indicate the following, if known? With: Acute lower respiratory infection COPD (specify with or without exacerbation) Chronic obstructive bronchitis Other, please specify Unable to determine Severity: Mild intermittent Mild persistent Moderate persistent Severe persistent Other, please specify Unable to determine Form or Type: Cough variant Childhood Exercise induced bronchospasm Extrinsic allergic Idiosyncratic Intrinsic nonallergic Late-onset Mixed Other, please specify____ Unable to determine Please continue to document in your progress notes and discharge summary in order to capture severity of illness and risk of mortality. Include clinical findings that support your diagnosis. MTDD
[2018-01-08 17:14] LABS: Glucose,Whole Blood 162 mg/dL (75-99)
--- NOTE | 2018-01-08 17:27 | P.PN ---
Subjective Progress Note Date: 01/08/18 This is a 77-year-old female patient of [facility]. She has a known history of asthma, fibromyalgia, GERD, chronic kidney disease, hypothyroidism and chronic back pain. Patient reports that she has been dealing with a cough since October. However over the last week she is has been struggling with her breathing. She was in to see her back last week and who was concerned about her breathing until surgery report to her family doctor. That same day patient was seen by her PCP and was started on steroids and oral antibiotics. Patient completed treatment was indeed the be evaluated for follow-up yesterday. Her symptoms were not improving and her PCP recommended that she goes to the emergency room. Patient has been admitted to the hospital for influenza A, asthma exacerbation and possible pneumonia. She' s been started on Tamiflu Levaquin and IV Solu-Medrol and bronchodilators. Pulmonary service has been consulted. She is requiring oxygen. She also was found to have some mild acute kidney injury on top for chronic kidney disease with creatinine of 1.30. She is hypernatremic with a sodium 149. Patient denies any fever chills or sweats. Denies any chest pain. Denies any nausea vomiting. Denies any bowel movement changes or urinary symptoms. On 01/08/2018 patient is still complaining of episode of severe cough also complaining of shortness of breath with any activity and especially after cough otherwise she denies any other significant complaints there is no fever or chills no headache no dizziness no chest pain no palpitation no nausea or vomiting no abdominal pain or urinary symptoms Objective - Vital Signs Vital signs: Vital Signs Temp 99.4 F 01/08/18 15:00 Pulse 68 01/08/18 17:13 Resp 16 01/08/18 15:00 BP 135/67 01/08/18 15:00 Pulse Ox 97 01/08/18 17:01 Intake & Output 01/07/18 01/08/18 01/08/18 18:59 06:59 18:59 Other: # Voids 2 2 1 - Exam Head normocephalic and atraumatic Neck supple no JVD no goiter no lymphadenopathy Lungs coarse presses with mild wheezing bilaterally Heart regular rate and rhythm S1-S2, no rub or gallop Abdomen is soft nontender nondistended positive bowel sounds no hepatosplenomegaly Extremities no edema no cyanosis or clubbing Neuro alert and orientated to 3 - Labs CBC & Chem 7: 01/08/18 08:09 01/08/18 08:09 Labs: Abnormal Lab Results - Last 24 Hours (Table) 01/07/18 01/08/18 01/08/18 Range/Units 21:06 07:30 08:09 MCHC 30.7 L (31.0-37.0) g/dL BUN (7-17) mg/dL Creatinine (0.52-1.04) mg/dL Glucose (74-99) mg/dL POC Glucose (mg/dL) 127 H 136 H (75-99) mg/dL Total Protein (6.3-8.2) g/dL Albumin (3.5-5.0) g/dL 01/08/18 01/08/18 01/08/18 Range/Units 08:09 11:48 17:06 MCHC (31.0-37.0) g/dL BUN 37 H (7-17) mg/dL Creatinine 1.24 H (0.52-1.04) mg/dL Glucose 135 H (74-99) mg/dL POC Glucose (mg/dL) 122 H 162 H (75-99) mg/dL Total Protein 6.1 L (6.3-8.2) g/dL Albumin 3.2 L (3.5-5.0) g/dL Microbiology - Last 24 Hours (Table) 01/06/18 13:30 Blood Culture - Preliminary Blood No Growth after 48 hours Assessment and Plan Plan: 1. Acute asthma exacerbation: Continue IV Solu-Medrol and bronchodilators. Pulmonary service consulted 2. Influenza A positive continue Tamiflu 3. possible pneumonia on chest x-ray. Patient started on Levaquin in the emergency room 4. Acute on chronic kidney disease stage3. Creatinine is improving. Down from 1.30-1.26 encouraged by mouth fluid intake. Currently off of IV fluids. Does follow nephrology in outpatient setting 5. Hypernatremia on admission with a sodium of 149 now down to 144. 6. Fibromyalgia 7. Chronic back pain 8. Hypothyroidism 9. Hyperlipidemia continue Lipitor 10. Essential hypertension continue Norvasc 11. Steroid-induced hyperglycemia: Continue sliding scale coverage Patient is still having bouts of severe cough and still having significant shortness of breath she is not ready for discharge yet
[2018-01-08] MEDS ORDERED: ASPIRIN-ACET-CAFF 250-250-65MG 1 EACH TAB PO PRN (17:55)
[2018-01-08 20:55] LABS: Glucose,Whole Blood 145 mg/dL (75-99)
[2018-01-08] MEDS: MELATONIN 5 MG TABLET PO SCH (22:03)
[2018-01-08] MEDS: PANTOPRAZOLE 40 MG TABLET PO SCH (22:03)
[2018-01-08] MEDS: NORTRIPTYLINE 25 MG CAP PO SCH (22:03)
[2018-01-08] MEDS: FLUTICASONE 50MCG/SPRAY NASAL 16GM EA NOSTRIL SCH (22:04)
[2018-01-08] MEDS: ATORVASTATIN 10 MG TAB PO SCH (22:05)
[2018-01-08] MEDS: PROMETHAZ-COD 6.25-10 MG/5 ML 5 ML CUP PO PRN (22:21)
[2018-01-08] MEDS: ZOLPIDEM 5 MG TAB PO SCH (22:27)
[2018-01-09] MEDS: OSELTAMIVIR 60 MG/10 ML ORAL SYRINGE PO SCH ×2 (06:39→20:16)
[2018-01-09] MEDS: THYROID, PORK 30 MG TAB PO SCH (06:39)
[2018-01-09] MEDS: IPRATROPIUM-ALBUTEROL 3 ML NEB INHALATION SCH ×4 (07:25→20:03)
[2018-01-09] MEDS: SYMBICORT 160-4.5 MCG INHALER INHALATION SCH ×2 (07:25→20:03)
[2018-01-09 07:34] LABS: Glucose,Whole Blood 160 mg/dL (75-99)
[2018-01-09] MEDS: methylPREDNISolone SOD SUCCI 125 MG/2 ML VIAL IV SCH ×4 (08:16→22:21)
[2018-01-09] MEDS: MELOXICAM 7.5 MG TAB PO SCH (08:17)
[2018-01-09] MEDS: MAGNESIUM OXIDE 400 MG TAB PO SCH (08:17)
[2018-01-09] MEDS: NADOLOL 20 MG TAB PO SCH (08:17)
[2018-01-09] MEDS: amLODIPine 5 MG TAB PO SCH (08:17)
[2018-01-09] MEDS: LORATADINE 10 MG TAB PO SCH (08:17)
[2018-01-09] MEDS: CALCIUM CARB-VIT D 500MG-200UN 1 EACH TAB PO SCH ×2 (08:17→20:17)
[2018-01-09] MEDS: SPIRONOLACTONE 25 MG TAB PO SCH (08:17)
[2018-01-09] MEDS: DULoxetine HCL 60 MG CAPSULE.DR PO SCH (08:17)
[2018-01-09] MEDS: TOPIRAMATE 100 MG TAB PO SCH ×2 (08:17→20:17)
[2018-01-09] MEDS: ENOXAPARIN 30 MG/0.3 ML SYRINGE SQ SCH (08:18)
[2018-01-09] MEDS: INSULIN ASPART 100 UNIT/ML 1 ML 10 ML VIAL SQ SCH ×4 (08:18→22:21)
[2018-01-09] MEDS: PROMETHAZ-COD 6.25-10 MG/5 ML 5 ML CUP PO PRN ×2 (08:26→22:23)
[2018-01-09 09:04] LABS: Basophils % (A) 0 %; Eosinophils % (A) 0 %; HCT 41.9 % (34.0-46.0); HGB 12.9 gm/dL (11.4-16.0); Lymphocytes % (A) 11 %; MCH 29.8 pg (25.0-35.0); MCHC 30.7 g/dL (31.0-37.0); Mean Platelet Volume 7.4; Monocytes # (A) 0.3 k/uL (0-1.0); Monocytes % (A) 3 %; Neutrophils % (A) 85 %; Platelet Count 210 k/uL (150-450); RBC 4.33 m/uL (3.80-5.40); RDW 13.6 % (11.5-15.5); WBC 9.4 k/uL (3.8-10.6)
[2018-01-09 09:33] LABS: Albumin 3.5 g/dL (3.5-5.0); Calcium 9.5 mg/dL (8.4-10.2); Potassium 4.4 mmol/L (3.5-5.1); Total Bilirubin 0.4 mg/dL (0.2-1.3); Total Protein 6.7 g/dL (6.3-8.2)
--- NOTE | 2018-01-09 11:48 | P.PN ---
Subjective Progress Note Date: 01/09/18 This is a 77-year-old female patient of [facility]. She has a known history of asthma, fibromyalgia, GERD, chronic kidney disease, hypothyroidism and chronic back pain. Patient reports that she has been dealing with a cough since October. However over the last week she is has been struggling with her breathing. She was in to see her back last week and who was concerned about her breathing until surgery report to her family doctor. That same day patient was seen by her PCP and was started on steroids and oral antibiotics. Patient completed treatment was indeed the be evaluated for follow-up yesterday. Her symptoms were not improving and her PCP recommended that she goes to the emergency room. Patient has been admitted to the hospital for influenza A, asthma exacerbation and possible pneumonia. She' s been started on Tamiflu Levaquin and IV Solu-Medrol and bronchodilators. Pulmonary service has been consulted. She is requiring oxygen. She also was found to have some mild acute kidney injury on top for chronic kidney disease with creatinine of 1.30. She is hypernatremic with a sodium 149. Patient denies any fever chills or sweats. Denies any chest pain. Denies any nausea vomiting. Denies any bowel movement changes or urinary symptoms. 01/09/2018 patient still coughing and having some shortness of breath with activity. She is now off of the oxygen. Still having wheezing. Denies chest pain. Denies nausea or vomiting. Denies bowel changes or urinary symptoms. Objective - Vital Signs Vital signs: Vital Signs Temp 97.4 F L 01/09/18 07:00 Pulse 70 01/09/18 11:29 Resp 16 01/09/18 07:00 BP 174/78 01/09/18 07:00 Pulse Ox 92 L 01/09/18 07:27 Intake & Output 01/08/18 01/09/18 01/09/18 18:59 06:59 18:59 Intake Total 600 Balance 600 Intake: Oral 600 Other: Voiding Method Toilet # Voids 1 1 - Exam Head normocephalic Neck supple Lungs wheezing bilaterally with coarse breath sounds Heart regular rate and rhythm S1-S2, no rub or gallop Abdomen is soft nontender nondistended positive bowel sounds no hepatosplenomegaly Extremities no edema Neuro alert and orientated to 3 - Labs CBC & Chem 7: 01/09/18 08:30 02/15/18 08:30 Labs: Abnormal Lab Results - Last 24 Hours (Table) 01/08/18 01/08/18 01/08/18 Range/Units 11:48 17:06 20:32 MCHC (31.0-37.0) g/dL Neutrophils # (1.3-7.7) k/uL BUN (7-17) mg/dL Creatinine (0.52-1.04) mg/dL Glucose (74-99) mg/dL POC Glucose (mg/dL) 122 H 162 H 145 H (75-99) mg/dL 01/09/18 01/09/18 01/09/18 Range/Units 07:29 08:30 08:30 MCHC 30.7 L (31.0-37.0) g/dL Neutrophils # 8.0 H (1.3-7.7) k/uL BUN 39 H (7-17) mg/dL Creatinine 1.27 H (0.52-1.04) mg/dL Glucose 211 H (74-99) mg/dL POC Glucose (mg/dL) 160 H (75-99) mg/dL Microbiology - Last 24 Hours (Table) 01/08/18 17:15 Gram Stain - Preliminary Sputum Sputum Culture - Preliminary 01/06/18 13:30 Blood Culture - Preliminary Blood No Growth after 48 hours Assessment and Plan Assessment: 1. Acute asthma exacerbation: Continue IV Solu-Medrol and bronchodilators. Patient is still coughing and wheezing. Not ready for discharge. Pulmonary service following 2. Influenza A positive continue Tamiflu 3. possible pneumonia on chest x-ray. Patient started on Levaquin in the emergency room 4. Acute on chronic kidney disease stage3. Creatinine is improving. Creatinine 1.27 encouraged by mouth fluid intake. Currently off of IV fluids. Does follow nephrology in outpatient setting 5. Hypernatremia on admission with a sodium of 149 now down to 144. 6. Fibromyalgia 7. Chronic back pain 8. Hypothyroidism 9. Hyperlipidemia continue Lipitor 10. Essential hypertension continue Norvasc 11. Steroid-induced hyperglycemia: Continue sliding scale coverage GI prophylaxis Protonix and DVT prophylaxis Lovenox I performed an examination of the patient and discussed their management with the physician Casing Operator. I have reviewed the Physician Casing Operator's notes and agree with the documented findings and plan of care
[2018-01-09 12:16] LABS: Glucose,Whole Blood 105 mg/dL (75-99)
[2018-01-09] MEDS: FERROUS SULFATE 325 MG TAB PO SCH (12:53)
[2018-01-09] MEDS: MULTIVITAMINS, THERA 1 EACH TAB PO SCH (12:53)
--- NOTE | 2018-01-09 15:15 | P.PN ---
Subjective Progress Note Date: 01/09/18 Principal diagnosis: Acute asthma exacerbation, triggered by influenza A tracheobronchitis Mrs. Sahni is a 77-year-old white female patient of Dr. Daniel that presented to the hospital on 01/06/2018 at 1210 with complaints of increasing shortness of breath, wheezing, chills, congested cough. Her cough was productive with yellowish greenish sputum. Symptoms had started about a week ago. Patient has muscle aches on a regular basis related to her history of fibromyalgia. She saw her primary care physician who treated her with a breathing treatment, some steroids. She denied any actual fevers she denied any chest pain. Chest x-ray from 01/06/2018 showed mild cardiomegaly, bronchial wall thickening that could be reflective of bronchitis, chronic asthma , atypical pneumonia or mild pulmonary vascular congestion. Twelve-lead EKG showed normal sinus rhythm with a rate of 63 bpm. Lab work did not show any evidence of leukocytosis, WBC was 7.5, hemoglobin 11.4, serum sodium was 149, BUN is 34, creatinine is 1.30. Influenza screen was positive for influenza A. She was started on Tamiflu, Levaquin, nebulized treatments, IV steroids, Symbicort and was admitted for further management. On 01/08/2018 patient seen in follow-up. Still remains significantly dyspneic with any exertion, even with ambulation short distances in the room. Lung sounds are positive for end expiratory wheezes, diminished lung sounds throughout. Not bringing up much sputum. She is on 2 L per nasal cannula with O2 sat 96%. She is afebrile. Blood cultures are negative at the 24-hour shante. States she is not back to her baseline yet. We spoke to the patient's daughter regarding her condition, we discussed with her that the patient will need a follow-up on an outpatient basis for evaluation of her pulmonary lung function, asthma, and optimization of her asthma. Today's lab work shows that the BC within normal limits of 7.2, hemoglobin is 11.5, electrolytes are within normal limits, BUN is 37, creatinine is 1.24. Increase patient's activity as tolerated, continue IV steroids, Tamiflu, Levaquin, nebulized treatments and Symbicort. On 01/09/2018 patient seen in follow-up. Port some improvement in terms of her dyspnea and activity tolerance. Lung sounds are positive for scattered wheezes , but overall patient reports feeling better. She has been afebrile, vital signs are stable, she is on room air with O2 sat at 92%. No significant cough or sputum production. She continues on a combination of Tamiflu and Levaquin, nebulized treatments. Blood and sputum cultures remain negative. No acute events overnight. Objective - Vital Signs Vital signs: Vital Signs Temp 97.4 F L 01/09/18 07:00 Pulse 68 01/09/18 11:20 Resp 16 01/09/18 07:00 BP 174/78 01/09/18 07:00 Pulse Ox 92 L 01/09/18 07:27 Intake & Output 01/08/18 01/09/18 01/09/18 18:59 06:59 18:59 Intake Total 600 Balance 600 Intake: Oral 600 Other: Voiding Method Toilet # Voids 1 1 - Exam GENERAL EXAM: Alert, 77-year-old white female, comfortable in no apparent distress. HEAD: Normocephalic/atraumatic. EYES: Normal reaction of pupils, equal size. Conjunctiva pink, sclera white. NOSE: Clear with pink turbinates. THROAT: No erythema or exudates. NECK: No masses, no JVD, no thyroid enlargement, no adenopathy. CHEST: No chest wall deformity. Symmetrical expansion. LUNGS: Equal air entry with scattered wheezes CVS: Regular rate and rhythm, normal S1 and S2, no gallops, no murmurs, no rubs ABDOMEN: Soft, nontender. No hepatosplenomegaly, normal bowel sounds, no guarding or rigidity. EXTREMITIES: No clubbing, no edema, no cyanosis, 2+ pulses and upper and lower extremities. MUSCULOSKELETAL: Muscle strength and tone normal. SPINE: No scoliosis or deformity SKIN: No rashes CENTRAL NERVOUS SYSTEM: Alert and oriented -3. No focal deficits, tone is normal in all 4 extremities. PSYCHIATRIC: Alert and oriented -3. Appropriate affect. Intact judgment and insight. - Labs CBC & Chem 7: 01/09/18 08:30 01/09/18 08:30 Labs: Abnormal Lab Results - Last 24 Hours (Table) 01/08/18 01/08/18 01/08/18 Range/Units 11:48 17:06 20:32 MCHC (31.0-37.0) g/dL Neutrophils # (1.3-7.7) k/uL BUN (7-17) mg/dL Creatinine (0.52-1.04) mg/dL Glucose (74-99) mg/dL POC Glucose (mg/dL) 122 H 162 H 145 H (75-99) mg/dL 01/09/18 01/09/18 01/09/18 Range/Units 07:29 08:30 08:30 MCHC 30.7 L (31.0-37.0) g/dL Neutrophils # 8.0 H (1.3-7.7) k/uL BUN 39 H (7-17) mg/dL Creatinine 1.27 H (0.52-1.04) mg/dL Glucose 211 H (74-99) mg/dL POC Glucose (mg/dL) 160 H (75-99) mg/dL Microbiology - Last 24 Hours (Table) 01/08/18 17:15 Gram Stain - Preliminary Sputum Sputum Culture - Preliminary 01/06/18 13:30 Blood Culture - Preliminary Blood No Growth after 48 hours Assessment and Plan Plan: Assessment: #1. Acute exacerbation of severe persistent asthma, triggered by influenza A, chest x-ray was negative for any clear-cut evidence of pneumonia #2. Acute on chronic kidney disease, patient follows with nephrology on an outpatient basis #3. Hypernatremia, mild, present on admission. Improved, today's sodium is 4.6 #4. Nicotine dependence, currently in remission, quit in 1973 #5. Fibromyalgia #6. GERD/reflux #7. Hyperlipidemia, hypertension #8. Hypothyroidism Plan: Patient reports some improvement in terms of her dyspnea and activity tolerance. Vital signs are stable, no growth on sputum and blood cultures. Continue with the Tamiflu and Levaquin, continue with nebulized treatments, Symbicort. We will add Singulair. No acute events overnight, her cough is nonproductive, she is getting her promethazine with codeine cough syrup. If she continues to improve patient could possibly be considered for discharge in the next 24 hours. I performed a history & physical examination of the patient and discussed their management with my nurse practitioner, Bhargavi Lucia. I reviewed the nurse practitioner's note and agree with the documented findings and plan of care. Lung sounds are positive for scattered wheezes. The findings and the impression was discussed with the patient. I attest to the documentation by the nurse practitioner. Time with Patient: Less than 30
[2018-01-09 17:20] LABS: Glucose,Whole Blood 193 mg/dL (75-99)
[2018-01-09] MEDS: LEVOFLOXACIN 750 MG TAB PO SCH (18:16)
[2018-01-09] MEDS: PANTOPRAZOLE 40 MG TABLET PO SCH (20:17)
[2018-01-09] MEDS: MONTELUKAST 10 MG TAB PO SCH (20:17)
[2018-01-09] MEDS: MELATONIN 5 MG TABLET PO SCH (20:17)
[2018-01-09] MEDS: ATORVASTATIN 10 MG TAB PO SCH (20:17)
[2018-01-09] MEDS: ZOLPIDEM 5 MG TAB PO SCH (20:17)
[2018-01-09] MEDS: NORTRIPTYLINE 25 MG CAP PO SCH (20:17)
[2018-01-09] MEDS: FLUTICASONE 50MCG/SPRAY NASAL 16GM EA NOSTRIL SCH (20:28)
[2018-01-09 21:01] LABS: Glucose,Whole Blood 132 mg/dL (75-99)
[2018-01-10] MEDS: PROMETHAZ-COD 6.25-10 MG/5 ML 5 ML CUP PO PRN ×2 (05:35→22:50)
[2018-01-10] MEDS: THYROID, PORK 30 MG TAB PO SCH (06:19)
[2018-01-10] MEDS: OSELTAMIVIR 60 MG/10 ML ORAL SYRINGE PO SCH ×2 (06:20→18:20)
[2018-01-10] MEDS: SYMBICORT 160-4.5 MCG INHALER INHALATION SCH ×2 (07:20→19:46)
[2018-01-10] MEDS: IPRATROPIUM-ALBUTEROL 3 ML NEB INHALATION SCH ×4 (07:20→19:46)
[2018-01-10 07:47] LABS: Glucose,Whole Blood 138 mg/dL (75-99)
--- NOTE | 2018-01-10 07:51 | XR ---
EXAMINATION TYPE: XR chest 2V DATE OF EXAM: 01/10/2018 COMPARISON: 01/06/2018 HISTORY: 77 year-old female shortness of breath, evaluate pneumonia TECHNIQUE: Frontal and lateral views FINDINGS: Heart is borderline enlarged. Atherosclerotic arch calcifications. Mild interstitial prominence shows improvement from prior. No significant pleural effusion. Patchy left lower lung density and patchy m edial right basilar density is noted. IMPRESSION: Patchy left lower lung and medial right basilar densities. Density on the left is suspected to repres ent atelectasis. Density on the right could represent atelectasis or infiltrate.
[2018-01-10] MEDS: INSULIN ASPART 100 UNIT/ML 1 ML 10 ML VIAL SQ SCH ×4 (08:00→21:49)
[2018-01-10] MEDS: CALCIUM CARB-VIT D 500MG-200UN 1 EACH TAB PO SCH ×2 (08:01→21:07)
[2018-01-10] MEDS: TOPIRAMATE 100 MG TAB PO SCH ×2 (08:01→21:07)
[2018-01-10] MEDS: LORATADINE 10 MG TAB PO SCH (08:01)
[2018-01-10] MEDS: DULoxetine HCL 60 MG CAPSULE.DR PO SCH (08:01)
[2018-01-10] MEDS: ENOXAPARIN 30 MG/0.3 ML SYRINGE SQ SCH (08:01)
[2018-01-10] MEDS: MAGNESIUM OXIDE 400 MG TAB PO SCH (08:01)
[2018-01-10] MEDS: MELOXICAM 7.5 MG TAB PO SCH (08:02)
[2018-01-10] MEDS: amLODIPine 5 MG TAB PO SCH (08:02)
[2018-01-10] MEDS: SPIRONOLACTONE 25 MG TAB PO SCH (08:02)
[2018-01-10] MEDS: NADOLOL 20 MG TAB PO SCH (08:03)
[2018-01-10] MEDS: methylPREDNISolone SOD SUCCI 125 MG/2 ML VIAL IV SCH ×4 (08:03→21:48)
[2018-01-10 08:59] LABS: Basophils % (A) 0 %; Eosinophils % (A) 0 %; HCT 41.6 % (34.0-46.0); HGB 13.2 gm/dL (11.4-16.0); Lymphocytes % (A) 12 %; MCH 30.3 pg (25.0-35.0); MCHC 31.7 g/dL (31.0-37.0); MCV 95.6 fL (80.0-100.0); Mean Platelet Volume 7.6; Monocytes # (A) 0.4 k/uL (0-1.0); Monocytes % (A) 4 %; Neutrophils # (A) 7.1 k/uL (1.3-7.7); Neutrophils % (A) 83 %; Platelet Count 201 k/uL (150-450); RBC 4.35 m/uL (3.80-5.40); RDW 13.6 % (11.5-15.5); WBC 8.5 k/uL (3.8-10.6)
[2018-01-10 09:10] LABS: Albumin 3.6 g/dL (3.5-5.0); Calcium 9.5 mg/dL (8.4-10.2); Potassium 4.5 mmol/L (3.5-5.1); Total Bilirubin 0.5 mg/dL (0.2-1.3); Total Protein 6.7 g/dL (6.3-8.2)
[2018-01-10] MEDS ORDERED: ARTIFICIAL TEARS-HYPROMELLOSE DROPS 15 ML BTL BOTH EYES PRN (10:53)
--- NOTE | 2018-01-10 10:57 | P.PN ---
Subjective Progress Note Date: 01/10/18 This is a 77-year-old female patient of [facility]. She has a known history of asthma, fibromyalgia, GERD, chronic kidney disease, hypothyroidism and chronic back pain. Patient reports that she has been dealing with a cough since October. However over the last week she is has been struggling with her breathing. She was in to see her back last week and who was concerned about her breathing until surgery report to her family doctor. That same day patient was seen by her PCP and was started on steroids and oral antibiotics. Patient completed treatment was indeed the be evaluated for follow-up yesterday. Her symptoms were not improving and her PCP recommended that she goes to the emergency room. Patient has been admitted to the hospital for influenza A, asthma exacerbation and possible pneumonia. She' s been started on Tamiflu Levaquin and IV Solu-Medrol and bronchodilators. Pulmonary service has been consulted. She is requiring oxygen. She also was found to have some mild acute kidney injury on top for chronic kidney disease with creatinine of 1.30. She is hypernatremic with a sodium 149. Patient denies any fever chills or sweats. Denies any chest pain. Denies any nausea vomiting. Denies any bowel movement changes or urinary symptoms. 01/09/2018 patient still coughing and having some shortness of breath with activity. She is now off of the oxygen. Still having wheezing. Denies chest pain. Denies nausea or vomiting. Denies bowel changes or urinary symptoms. 01/10/2018 patient was noted to be short of breath after ambulating from the bathroom. Still having a cough nonproductive. Does not feel quite ready for discharge. She remains on the Tamiflu and IV steroids. Still having wheezing. She is complaining of dry eyes in which she usually uses refresh eyedrops. Artificial tears will be ordered. Case was discussed with pulmonary service. They felt findings on the chest x-ray were from scarring and are old findings and that there is no new pneumonia. Objective - Vital Signs Vital signs: Vital Signs Temp 96.6 F L 01/10/18 07:00 Pulse 72 01/10/18 07:30 Resp 21 01/10/18 07:00 BP 155/85 01/10/18 07:00 Pulse Ox 91 L 01/10/18 07:00 Intake & Output 02/01/10/18 01/10/18 18:59 06:59 18:59 Intake Total 400 Balance 400 Intake: Oral 400 Other: Voiding Method Toilet # Voids 2 2 - Exam Head normocephalic Neck supple Lungs wheezing bilaterally with coarse breath sounds Heart regular rate and rhythm S1-S2, no rub or gallop Abdomen is soft nontender nondistended positive bowel sounds no hepatosplenomegaly Extremities no edema Neuro alert and orientated to 3 - Labs CBC & Chem 7: 01/10/18 08:23 01/10/18 08:23 Labs: Abnormal Lab Results - Last 24 Hours (Table) 01/09/18 01/09/18 01/09/18 Range/Units 12:12 17:01 20:51 BUN (7-17) mg/dL Creatinine (0.52-1.04) mg/dL Glucose (74-99) mg/dL POC Glucose (mg/dL) 105 H 193 H 132 H (75-99) mg/dL 01/10/18 01/10/18 Range/Units 07:42 08:23 BUN 40 H (7-17) mg/dL Creatinine 1.17 H (0.52-1.04) mg/dL Glucose 176 H (74-99) mg/dL POC Glucose (mg/dL) 138 H (75-99) mg/dL Microbiology - Last 24 Hours (Table) 01/06/18 13:30 Blood Culture - Preliminary Blood No Growth after 72 hours 01/08/18 17:15 Gram Stain - Preliminary Sputum Sputum Culture - Preliminary Assessment and Plan Assessment: 1. Acute asthma exacerbation: Continue IV Solu-Medrol and bronchodilators. Patient is still coughing and wheezing. Not ready for discharge. Pulmonary service following 2. Influenza A positive continue Tamiflu 3. Acute tracheobronchitis: Chest x-ray results reviewed with pulmonary service. They felt that this was not a pneumonia. We'll continue with Levaquin for the bronchitis 4. Acute on chronic kidney disease stage3. Creatinine is improving. Creatinine 1.17 closer to her baseline. Currently off of IV fluids. Does follow nephrology in outpatient setting 5. Hypernatremia on admission with a sodium of 149 now down to 144. 6. Fibromyalgia 7. Chronic back pain 8. Hypothyroidism 9. Hyperlipidemia continue Lipitor 10. Essential hypertension continue Norvasc 11. Steroid-induced hyperglycemia: Continue sliding scale coverage 12. Dry eye: Order artificial tears GI prophylaxis Protonix and DVT prophylaxis Lovenox I performed an examination of the patient and discussed their management with the physician Reo Asset Manager. I have reviewed the Physician Reo Asset Manager's notes and agree with the documented findings and plan of care
[2018-01-10 12:21] LABS: Glucose,Whole Blood 132 mg/dL (75-99)
[2018-01-10] MEDS: MULTIVITAMINS, THERA 1 EACH TAB PO SCH (13:28)
[2018-01-10] MEDS: FERROUS SULFATE 325 MG TAB PO SCH (13:28)
--- NOTE | 2018-01-10 13:28 | P.PN ---
Subjective Progress Note Date: 01/10/18 Principal diagnosis: Acute exacerbation of severe persistent asthma triggered by influenza A infection. Mrs. Sahni is a 77-year-old white female patient of Dr. Daniel that presented to the hospital on 01/06/2018 at 1210 with complaints of increasing shortness of breath, wheezing, chills, congested cough. Her cough was productive with yellowish greenish sputum. Symptoms had started about a week ago. Patient has muscle aches on a regular basis related to her history of fibromyalgia. She saw her primary care physician who treated her with a breathing treatment, some steroids. She denied any actual fevers she denied any chest pain. Chest x-ray from 01/06/2018 showed mild cardiomegaly, bronchial wall thickening that could be reflective of bronchitis, chronic asthma , atypical pneumonia or mild pulmonary vascular congestion. Twelve-lead EKG showed normal sinus rhythm with a rate of 63 bpm. Lab work did not show any evidence of leukocytosis, WBC was 7.5, hemoglobin 11.4, serum sodium was 149, BUN is 34, creatinine is 1.30. Influenza screen was positive for influenza A. She was started on Tamiflu, Levaquin, nebulized treatments, IV steroids, Symbicort and was admitted for further management. On 01/08/2018 patient seen in follow-up. Still remains significantly dyspneic with any exertion, even with ambulation short distances in the room. Lung sounds are positive for end expiratory wheezes, diminished lung sounds throughout. Not bringing up much sputum. She is on 2 L per nasal cannula with O2 sat 96%. She is afebrile. Blood cultures are negative at the 24-hour shante. States she is not back to her baseline yet. We spoke to the patient's daughter regarding her condition, we discussed with her that the patient will need a follow-up on an outpatient basis for evaluation of her pulmonary lung function, asthma, and optimization of her asthma. Today's lab work shows that the BC within normal limits of 7.2, hemoglobin is 11.5, electrolytes are within normal limits, BUN is 37, creatinine is 1.24. Increase patient's activity as tolerated, continue IV steroids, Tamiflu, Levaquin, nebulized treatments and Symbicort. On 01/09/2018 patient seen in follow-up. Port some improvement in terms of her dyspnea and activity tolerance. Lung sounds are positive for scattered wheezes , but overall patient reports feeling better. She has been afebrile, vital signs are stable, she is on room air with O2 sat at 92%. No significant cough or sputum production. She continues on a combination of Tamiflu and Levaquin, nebulized treatments. Blood and sputum cultures remain negative. No acute events overnight. Patient was reevaluated today on 01/10/2018, improved, but not back to her baseline, continues to have intermittent episodes of cough and wheezing. No fever no chills noted. Objective - Vital Signs Vital signs: Vital Signs Temp 96.6 F L 01/10/18 07:00 Pulse 78 01/10/18 11:45 Resp 21 01/10/18 08:00 BP 155/85 01/10/18 07:00 Pulse Ox 91 L 01/10/18 07:00 Intake & Output 01/09/18 01/10/18 01/10/18 18:59 06:59 18:59 Intake Total 400 Balance 400 Intake: Oral 400 Other: Voiding Method Toilet Toilet # Voids 2 2 - Exam GENERAL EXAM: Alert, 77-year-old white female, comfortable in no apparent distress. HEAD: Normocephalic/atraumatic. EYES: Normal reaction of pupils, equal size. Conjunctiva pink, sclera white. NOSE: Clear with pink turbinates. THROAT: No erythema or exudates. NECK: No masses, no JVD, no thyroid enlargement, no adenopathy. CHEST: No chest wall deformity. Symmetrical expansion. LUNGS: Equal air entry with scattered wheezes, more so on forced expiratory maneuver. CVS: Regular rate and rhythm, normal S1 and S2, no gallops, no murmurs, no rubs ABDOMEN: Soft, nontender. No hepatosplenomegaly, normal bowel sounds, no guarding or rigidity. EXTREMITIES: No clubbing, no edema, no cyanosis, 2+ pulses and upper and lower extremities. MUSCULOSKELETAL: Muscle strength and tone normal. SPINE: No scoliosis or deformity SKIN: No rashes CENTRAL NERVOUS SYSTEM: Alert and oriented -3. No focal deficits, tone is normal in all 4 extremities. PSYCHIATRIC: Alert and oriented -3. Appropriate affect. Intact judgment and insight. - Labs CBC & Chem 7: 01/10/18 08:23 01/10/18 08:23 Labs: Abnormal Lab Results - Last 24 Hours (Table) 01/09/18 01/09/18 01/10/18 Range/Units 17:01 20:51 07:42 BUN (7-17) mg/dL Creatinine (0.52-1.04) mg/dL Glucose (74-99) mg/dL POC Glucose (mg/dL) 193 H 132 H 138 H (75-99) mg/dL 01/10/18 01/10/18 Range/Units 08:23 12:17 BUN 40 H (7-17) mg/dL Creatinine 1.17 H (0.52-1.04) mg/dL Glucose 176 H (74-99) mg/dL POC Glucose (mg/dL) 132 H (75-99) mg/dL Microbiology - Last 24 Hours (Table) 01/06/18 13:30 Blood Culture - Preliminary Blood No Growth after 72 hours Assessment and Plan Assessment: #1. Acute exacerbation of severe persistent asthma, triggered by influenza A, chest x-ray was negative for any clear-cut evidence of pneumonia #2. Acute on chronic kidney disease, patient follows with nephrology on an outpatient basis #3. Hypernatremia, mild, present on admission. Improved, today's sodium is 4.6 #4. Nicotine dependence, currently in remission, quit in 1973 #5. Fibromyalgia #6. GERD/reflux #7. Hyperlipidemia, hypertension #8. Hypothyroidism Recommendation: Continue present treatment plan, discharge planning in the next 24 hours. Time with Patient: Less than 30
[2018-01-10 17:29] LABS: Glucose,Whole Blood 176 mg/dL (75-99)
[2018-01-10 20:34] LABS: Glucose,Whole Blood 173 mg/dL (75-99)
[2018-01-10] MEDS: FLUTICASONE 50MCG/SPRAY NASAL 16GM EA NOSTRIL SCH (21:07)
[2018-01-10] MEDS: MELATONIN 5 MG TABLET PO SCH (21:07)
[2018-01-10] MEDS: MONTELUKAST 10 MG TAB PO SCH (21:07)
[2018-01-10] MEDS: ATORVASTATIN 10 MG TAB PO SCH (21:07)
[2018-01-10] MEDS: ZOLPIDEM 5 MG TAB PO SCH (21:07)
[2018-01-10] MEDS: PANTOPRAZOLE 40 MG TABLET PO SCH (21:07)
[2018-01-10] MEDS: NORTRIPTYLINE 25 MG CAP PO SCH (21:07)
[2018-01-11] MEDS: THYROID, PORK 30 MG TAB PO SCH (06:43)
[2018-01-11] MEDS: OSELTAMIVIR 60 MG/10 ML ORAL SYRINGE PO SCH (06:46)
[2018-01-11] MEDS: IPRATROPIUM-ALBUTEROL 3 ML NEB INHALATION SCH ×2 (07:37→11:39)
[2018-01-11] MEDS: SYMBICORT 160-4.5 MCG INHALER INHALATION SCH (07:37)
[2018-01-11 07:51] LABS: Glucose,Whole Blood 164 mg/dL (75-99)
[2018-01-11 08:10] LABS: Basophils % (A) 0 %; Eosinophils % (A) 0 %; HCT 41.8 % (34.0-46.0); HGB 12.7 gm/dL (11.4-16.0); Hypochromasia Slight; Lymphocytes # (A) 0.7 k/uL (1.0-4.8); Lymphocytes % (A) 9 %; MCH 29.9 pg (25.0-35.0); MCHC 30.4 g/dL (31.0-37.0); MCV 98.3 fL (80.0-100.0); Mean Platelet Volume 7.3; Monocytes # (A) 0.4 k/uL (0-1.0); Monocytes % (A) 6 %; Neutrophils # (A) 6.5 k/uL (1.3-7.7); Neutrophils % (A) 85 %; Platelet Count 192 k/uL (150-450); RBC 4.26 m/uL (3.80-5.40); RDW 13.6 % (11.5-15.5); WBC 7.7 k/uL (3.8-10.6)
[2018-01-11 08:21] VITALS: BP 143/85; RESP 16; TEMP 98.8
[2018-01-11] MEDS: SPIRONOLACTONE 25 MG TAB PO SCH (08:31)
[2018-01-11] MEDS: DULoxetine HCL 60 MG CAPSULE.DR PO SCH (08:31)
[2018-01-11] MEDS: amLODIPine 5 MG TAB PO SCH (08:31)
[2018-01-11] MEDS: MELOXICAM 7.5 MG TAB PO SCH (08:31)
[2018-01-11] MEDS: MAGNESIUM OXIDE 400 MG TAB PO SCH (08:31)
[2018-01-11] MEDS: LORATADINE 10 MG TAB PO SCH (08:31)
[2018-01-11] MEDS: CALCIUM CARB-VIT D 500MG-200UN 1 EACH TAB PO SCH (08:32)
[2018-01-11] MEDS: methylPREDNISolone SOD SUCCI 125 MG/2 ML VIAL IV SCH (08:32)
[2018-01-11] MEDS: INSULIN ASPART 100 UNIT/ML 1 ML 10 ML VIAL SQ SCH ×2 (08:32→12:57)
[2018-01-11] MEDS: ENOXAPARIN 30 MG/0.3 ML SYRINGE SQ SCH (08:32)
[2018-01-11] MEDS: TOPIRAMATE 100 MG TAB PO SCH (08:32)
[2018-01-11] MEDS: NADOLOL 20 MG TAB PO SCH (08:32)
[2018-01-11 08:34] LABS: Albumin 3.3 g/dL (3.5-5.0); Calcium 9.4 mg/dL (8.4-10.2); Potassium 4.4 mmol/L (3.5-5.1); Total Bilirubin 0.4 mg/dL (0.2-1.3); Total Protein 6.3 g/dL (6.3-8.2)
[2018-01-11] MEDS ORDERED: predniSONE 10 MG TAB PO SCH (11:00)
[2018-01-11 12:09] LABS: Glucose,Whole Blood 116 mg/dL (75-99)
[2018-01-11 12:43] VITALS: PULSE 76
[2018-01-11] MEDS: MULTIVITAMINS, THERA 1 EACH TAB PO SCH (12:56)
[2018-01-11] MEDS: FERROUS SULFATE 325 MG TAB PO SCH (12:56)
--- NOTE | 2018-01-11 13:00 | P.PN ---
Subjective Progress Note Date: 01/11/18 Principal diagnosis: Acute exacerbation of severe persistent asthma triggered by influenza A infection. Mrs. Sahni is a 77-year-old white female patient of Dr. Daniel that presented to the hospital on 01/06/2018 at 1210 with complaints of increasing shortness of breath, wheezing, chills, congested cough. Her cough was productive with yellowish greenish sputum. Symptoms had started about a week ago. Patient has muscle aches on a regular basis related to her history of fibromyalgia. She saw her primary care physician who treated her with a breathing treatment, some steroids. She denied any actual fevers she denied any chest pain. Chest x-ray from 01/06/2018 showed mild cardiomegaly, bronchial wall thickening that could be reflective of bronchitis, chronic asthma , atypical pneumonia or mild pulmonary vascular congestion. Twelve-lead EKG showed normal sinus rhythm with a rate of 63 bpm. Lab work did not show any evidence of leukocytosis, WBC was 7.5, hemoglobin 11.4, serum sodium was 149, BUN is 34, creatinine is 1.30. Influenza screen was positive for influenza A. She was started on Tamiflu, Levaquin, nebulized treatments, IV steroids, Symbicort and was admitted for further management. On 01/08/2018 patient seen in follow-up. Still remains significantly dyspneic with any exertion, even with ambulation short distances in the room. Lung sounds are positive for end expiratory wheezes, diminished lung sounds throughout. Not bringing up much sputum. She is on 2 L per nasal cannula with O2 sat 96%. She is afebrile. Blood cultures are negative at the 24-hour shante. States she is not back to her baseline yet. We spoke to the patient's daughter regarding her condition, we discussed with her that the patient will need a follow-up on an outpatient basis for evaluation of her pulmonary lung function, asthma, and optimization of her asthma. Today's lab work shows that the BC within normal limits of 7.2, hemoglobin is 11.5, electrolytes are within normal limits, BUN is 37, creatinine is 1.24. Increase patient's activity as tolerated, continue IV steroids, Tamiflu, Levaquin, nebulized treatments and Symbicort. On 01/09/2018 patient seen in follow-up. Port some improvement in terms of her dyspnea and activity tolerance. Lung sounds are positive for scattered wheezes , but overall patient reports feeling better. She has been afebrile, vital signs are stable, she is on room air with O2 sat at 92%. No significant cough or sputum production. She continues on a combination of Tamiflu and Levaquin, nebulized treatments. Blood and sputum cultures remain negative. No acute events overnight. Patient was reevaluated today on 01/10/2018, improved, but not back to her baseline, continues to have intermittent episodes of cough and wheezing. No fever no chills noted. Patient was reevaluated today on 01/11/2018, doing much better, breathing a lot easier, no cough no wheezing, no shortness of breath. Patient was cleared for discharge home today. Labs were reviewed including his CBC and basic metabolic profile. Objective - Vital Signs Vital signs: Vital Signs Temp 98.8 F 01/11/18 07:00 Pulse 76 01/11/18 11:50 Resp 16 01/11/18 07:00 BP 143/85 01/11/18 07:00 Pulse Ox 94 L 01/11/18 07:40 Intake & Output 01/10/18 01/11/18 01/11/18 18:59 06:59 18:59 Intake Total 240 Balance 240 Intake: Oral 240 Other: Voiding Method Toilet # Voids 2 1 1 - Exam GENERAL EXAM: Alert, 77-year-old white female, comfortable in no apparent distress. HEAD: Normocephalic/atraumatic. EYES: Normal reaction of pupils, equal size. Conjunctiva pink, sclera white. NOSE: Clear with pink turbinates. THROAT: No erythema or exudates. NECK: No masses, no JVD, no thyroid enlargement, no adenopathy. CHEST: No chest wall deformity. Symmetrical expansion. LUNGS: Equal air entry no crackles, no rhonchi, no wheezes. CVS: Regular rate and rhythm, normal S1 and S2, no gallops, no murmurs, no rubs ABDOMEN: Soft, nontender. No hepatosplenomegaly, normal bowel sounds, no guarding or rigidity. EXTREMITIES: No clubbing, no edema, no cyanosis, 2+ pulses and upper and lower extremities. MUSCULOSKELETAL: Muscle strength and tone normal. SPINE: No scoliosis or deformity SKIN: No rashes CENTRAL NERVOUS SYSTEM: Alert and oriented -3. No focal deficits, tone is normal in all 4 extremities. PSYCHIATRIC: Alert and oriented -3. Appropriate affect. Intact judgment and insight. - Labs CBC & Chem 7: 01/11/18 07:45 01/11/18 07:45 Labs: Abnormal Lab Results - Last 24 Hours (Table) 01/10/18 01/10/18 01/11/18 Range/Units 17:24 20:33 07:14 MCHC (31.0-37.0) g/dL Lymphocytes # (1.0-4.8) k/uL BUN (7-17) mg/dL Creatinine (0.52-1.04) mg/dL Glucose (74-99) mg/dL POC Glucose (mg/dL) 176 H 173 H 164 H (75-99) mg/dL Albumin (3.5-5.0) g/dL 01/11/18 01/11/18 01/11/18 Range/Units 07:45 07:45 12:08 MCHC 30.4 L (31.0-37.0) g/dL Lymphocytes # 0.7 L (1.0-4.8) k/uL BUN 40 H (7-17) mg/dL Creatinine 1.19 H (0.52-1.04) mg/dL Glucose 153 H (74-99) mg/dL POC Glucose (mg/dL) 116 H (75-99) mg/dL Albumin 3.3 L (3.5-5.0) g/dL Microbiology - Last 24 Hours (Table) 01/08/18 17:15 Gram Stain - Final Sputum Sputum Culture - Final Shanna albicans 01/06/18 13:30 Blood Culture - Preliminary Blood No Growth after 96 hours Assessment and Plan Assessment: #1. Acute exacerbation of severe persistent asthma, triggered by influenza A, chest x-ray was negative for any clear-cut evidence of pneumonia #2. Acute on chronic kidney disease, patient follows with nephrology on an outpatient basis #3. Hypernatremia, mild, present on admission. Improved, today's sodium is 4.6 #4. Nicotine dependence, currently in remission, quit in 1973 #5. Fibromyalgia #6. GERD/reflux #7. Hyperlipidemia, hypertension #8. Hypothyroidism Recommendation: Patient was cleared for discharge home today, she will be discharged on 10 to finish a total of 5 days, and to continue her usual bronchodilators including Advair, DuoNeb, and Levaquin for 4 more days. Time with Patient: Less than 30
--- NOTE | 2018-01-11 13:03 | P.DS ---
Providers Date of admission: 01/06/18 15:28 Expected date of discharge: 01/11/18 Attending physician: Nancy Cuba Consults: 01/06/18 15:47 Consult Physician Routine Consulting Provider: Brody Scott Consult Reason/Comments: ronak Do you want consulting provider notified?: Yes Primary care physician: [facility] Course: 1. Acute asthma exacerbation: Continue short course of prednisone and bronchodilators. 2. Influenza A positive: Finished Tamiflu Course 3. Acute tracheobronchitis: on Levaquin 4. Acute on chronic kidney disease stage3. Does follow nephrology in outpatient setting 6. Fibromyalgia 7. Chronic back pain 8. Hypothyroidism 9. Hyperlipidemia continue Lipitor 10. Essential hypertension continue Norvasc Patient Condition at Discharge: Fair Plan - Discharge Summary Discharge Rx Participant: No New Discharge Prescriptions: New Levofloxacin [Levaquin] 750 mg PO Q48H #2 tab predniSONE 30 mg PO DAILY #9 tab Spironolactone [Aldactone] 50 mg PO DAILY tab Continue Fluticasone/Salmeterol [Advair 500-50 Diskus] 1 inhalation PO RT-BID Ferrous Sulfate [Iron (65 MG Elemental)] 325 mg PO DAILY Cetirizine HCl 10 mg PO DAILY Multivitamins, Thera [Multivitamin (formulary)] 1 tab PO DAILY Melatonin 5 mg PO HS amLODIPine BESYLATE [Norvasc] 5 mg PO DAILY Omeprazole 40 mg PO HS Nortriptyline [Pamelor] 50 mg PO HS Topiramate [Topamax] 100 mg PO BID Thyroid,Pork [Gladys Thyroid] 90 mg PO DAILY Lovastatin [Mevacor] 40 mg PO HS DULoxetine HCL [Cymbalta] 60 mg PO DAILY Ketoconazole 2% Cream [Nizoral 2%] 1 applic TOPICAL BID PRN PRN Reason: facial sores Calcium Carbonate/Vitamin D3 [Calcium 600-Vit D3 400 Caplet] 1 tab PO BID Nadolol [Corgard] 20 mg PO DAILY Celecoxib [CeleBREX] 200 mg PO DAILY Magnesium Oxide [Mag-Ox] 250 mg PO DAILY Discontinued diphenhydrAMINE [Benadryl] 150 mg PO HS Triamcinolone Acetonide [Nasacort] 1 spray EA NOSTRIL HS Spironolactone 50 mg PO DAILY Discharge Medication List Cetirizine HCl 10 mg PO DAILY 02/04/17 [History] DULoxetine HCL [Cymbalta] 60 mg PO DAILY 02/04/17 [History] Ferrous Sulfate [Iron (65 MG Elemental)] 325 mg PO DAILY 02/04/17 [History] Fluticasone/Salmeterol [Advair 500-50 Diskus] 1 inhalation PO RT-BID 02/04/17 [ History] Lovastatin [Mevacor] 40 mg PO HS 02/04/17 [History] Melatonin 5 mg PO HS 02/04/17 [History] Multivitamins, Thera [Multivitamin (formulary)] 1 tab PO DAILY 02/04/17 [History ] Nortriptyline [Pamelor] 50 mg PO HS 02/04/17 [History] Omeprazole 40 mg PO HS 02/04/17 [History] Thyroid,Pork [Gladys Thyroid] 90 mg PO DAILY 02/04/17 [History] Topiramate [Topamax] 100 mg PO BID 02/04/17 [History] amLODIPine BESYLATE [Norvasc] 5 mg PO DAILY 02/04/17 [History] Calcium Carbonate/Vitamin D3 [Calcium 600-Vit D3 400 Caplet] 1 tab PO BID [History] Ketoconazole 2% Cream [Nizoral 2%] 1 applic TOPICAL BID PRN 03/21/17 [History] Celecoxib [CeleBREX] 200 mg PO DAILY 01/06/18 [History] Magnesium Oxide [Mag-Ox] 250 mg PO DAILY 01/06/18 [History] Nadolol [Corgard] 20 mg PO DAILY 01/06/18 [History] Levofloxacin [Levaquin] 750 mg PO Q48H #2 tab 01/11/18 [Rx] Spironolactone [Aldactone] 50 mg PO DAILY tab 01/11/18 [Rx] predniSONE 30 mg PO DAILY #9 tab 01/11/18 [Rx] Follow up Appointment(s)/Referral(s): Miguel Cruz DO [Doctor of Osteopathic Medicine] - 1 Week Ariane Daniel DO [Primary Care Provider] - 3 Days Patient Instructions/Handouts: Influenza (DC) Discharge Disposition: HOME SELF-CARE
== END 2018-01-11 14:44 | disposition home or self-care (01) | DRG 202 ==
LOC: EC 12:10 → 4MS4W 15:28
PROVIDERS: ADMIT Internal Medicine; ATTEND Internal Medicine
DX: J45.51 Severe persistent asthma with (acute) exacerbation (principal); N17.9 Acute kidney failure, unspecified; E87.0 Hyperosmolality and hypernatremia; E66.01 Morbid (severe) obesity due to excess calories; Z68.42 Body mass index [BMI] 45.0-49.9, adult; J10.1 Influenza due to other identified influenza virus with other respiratory manifestations; J20.9 Acute bronchitis, unspecified; N18.3 Chronic kidney disease, stage 3 (moderate); I12.9 Hypertensive chronic kidney disease with stage 1 through stage 4 chronic kidney disease, or unspecified chronic kidney disease; R73.9 Hyperglycemia, unspecified; T38.0X5A Adverse effect of glucocorticoids and synthetic analogues, initial encounter; E78.5 Hyperlipidemia, unspecified; E03.9 Hypothyroidism, unspecified; M79.7 Fibromyalgia; G89.29 Other chronic pain; M54.9 Dorsalgia, unspecified; H04.123 Dry eye syndrome of bilateral lacrimal glands; K21.9 Gastro-esophageal reflux disease without esophagitis; F17.201 Nicotine dependence, unspecified, in remission; D64.9 Anemia, unspecified; G43.909 Migraine, unspecified, not intractable, without status migrainosus; K57.90 Diverticulosis of intestine, part unspecified, without perforation or abscess without bleeding; H91.90 Unspecified hearing loss, unspecified ear; Z90.710 Acquired absence of both cervix and uterus; Z96.651 Presence of right artificial knee joint; Z98.42 Cataract extraction status, left eye; Z98.41 Cataract extraction status, right eye; Z79.51 Long term (current) use of inhaled steroids; Z79.899 Other long term (current) drug therapy; Z91.010 Allergy to peanuts
CPT/HCPCS: 36415; 71046; 80053; 82550; 82553; 83036; 83880; 84484; 85025; 85610; 85730; 87040; 87070; 87205; 87502; 93005; 94640; 94760; 96365; 96375; 99285

== ENCOUNTER → 2018-07-18 | Outpatient (CLI) | payer MEDICARE ==
--- NOTE | 2018-07-18 16:36 | CT ---
EXAMINATION TYPE: CT chest w con DATE OF EXAM: 07/18/2018 COMPARISON: CT chest October 30, 2017 HISTORY: Cough and SOB x1 month CT DLP: 484.6 mGycm. Automated Exposure Control for Dose Reduction was Utilized. TECHNIQUE: CT scan of the thorax is performed following with IV Contrast, patient injected with 80 m L of Isovue 300. FINDINGS: LUNGS: There are persistent areas of linear scarring and/or atelectasis in both lower lobes near diap hragm, there are more regular areas of nodular and nodular thickened opacities seen bilaterally on cu rrent study predominantly involving bilateral lower lobes but some right middle lobe involvement is p resent, some irregular consolidation is seen axial image 33 for reference. Mild central bronchiectasi s is identified. Upper lungs are clear. No pneumothorax is seen bilaterally. No pleural effusion is n oted. MEDIASTINUM: There are no new greater than 1 cm hilar or mediastinal lymph nodes. There are persist ent enlarged left hilar lymph nodes near axial image 31 redemonstrated. No pericardial effusion is se en. Cardiomegaly is redemonstrated. Thyroid gland is stable somewhat small in size. OTHER: Fairly moderate multilevel spurring in the mid to lower thoracic spine with several levels of vacuum disc phenomenon and disc space narrowing. Contracted gallbladder is seen on current study. IMPRESSION: Suspect new areas of acute infiltrate or pneumonia on background chronic fibrosis in the bilateral lower lungs. Consider follow-up chest CT after treatment or bronchoscopy evaluation if symp toms do not resolve.
== END | disposition home or self-care (01) ==
LOC: RADCTMAIN 14:57
PROVIDERS: ATTEND Family Medicine
DX: R06.02 Shortness of breath (principal); R06.4 Hyperventilation; R05 Cough
CPT/HCPCS: 82565; 84520; 71260; 36415; Q9967

== ENCOUNTER → 2018-10-10 | Outpatient (CLI) | payer MEDICARE ==
--- NOTE | 2018-10-10 14:12 | CT ---
EXAMINATION TYPE: CT chest w con DATE OF EXAM: 10/10/2018 COMPARISON: 07/18/2018 HISTORY: Abnormal CT CT DLP: 484.6 mGycm Automated exposure control for dose reduction was used. CONTRAST: CT scan of the chest is performed patient injected with 80 mL of Isovue 300. FINDINGS: LUNGS: Persistent areas of consolidation involving both lungs. There is a stable appearing nodule wit hin the right middle lobe measuring 3 mm. interlobular septal thickening involving the lung bases not ed. More localized rounded nodular area of consolidation the left lower lobe is seen appears somewhat increased in size from prior exam. Remaining areas appear stable or slightly improved. MEDIASTINUM: Heart is enlarged. There is left hilar 1.1 cm area of lymphadenopathy which is retrospec tively stable. Coronary artery calcification noted. Aorta of normal caliber with mild atherosclerotic changes. OTHER: Hypertrophic and degenerative change of the spine noted. Renal cortical loss suggest chronic medical renal disease. Accessory spleen noted. IMPRESSION: 1. Stable multi focal areas of consolidation one of which appears nodular and left lower lobe and inc reased in size from prior exam. Remaining areas appear to be reduced are stable. Findings still likel y postinflammatory or infectious. Recommend PET scan to exclude neoplastic process. 2. Stable right middle lobe 3 mm pulmonary nodule. 3. Interlobular septal involving the lung bases can be associated with chronic interstitial lung dise ase. 4. Stable left hilar lymphadenopathy.
== END | disposition home or self-care (01) ==
LOC: RADCTMAIN 12:39
PROVIDERS: ATTEND Family Medicine
DX: R91.8 Other nonspecific abnormal finding of lung field (principal); R59.0 Localized enlarged lymph nodes
CPT/HCPCS: 82565; 84520; 71260; Q9967

== ENCOUNTER → 2018-11-04 | Outpatient (CLI) | payer MEDICARE ==
--- NOTE | 2018-11-05 14:22 | MM ---
Reason for exam: screening (asymptomatic). Last mammogram was performed 1 year and 2 months ago. History: Patient is postmenopausal. Physical Findings: A clinical breast exam by your physician is recommended on an annual basis and results should be correlated with mammographic findings. MG 3D Screening Mammo W/Cad Bilateral CC and MLO view(s) were taken. Prior study comparison: September 16, 2017, bilateral MG 3d screening mammo w/cad. July 05, 2016, bilateral MG screening mammo w CAD. There are scattered fibroglandular densities. No suspicious abnormality. No significant changes when compared with prior studies. ASSESSMENT: Negative, BI-RAD 1 RECOMMENDATION: Routine screening mammogram of both breasts in 1 year.
== END | disposition home or self-care (01) ==
LOC: RADMAMWWP 10:40
PROVIDERS: ATTEND Family Medicine
DX: Z12.31 Encounter for screening mammogram for malignant neoplasm of breast (principal)
CPT/HCPCS: 77063; 77067

== ENCOUNTER → 2018-11-15 | Outpatient (CLI) | payer MEDICARE ==
--- NOTE | 2018-11-16 06:49 | PE ---
EXAMINATION TYPE: PET CT fusion skull to thigh DATE OF EXAM: 11/15/2018 COMPARISON: Chest CT October 10, 2018 and older CTs. HISTORY: Solitary pulmonary nodule per order. TECHNIQUE: Following the intravenous administration of 15.08mCi of F-18 FDG, whole body images are p erformed from the skull base to the midthigh. Images are reviewed on the computer in the coronal, ax ial, and sagittal planes. Reconstructed rotating images are created on independent workstation and r eviewed on the computer. A noncontrast CT is performed in conjunction with the PET scan. SCAN: Initial Scan FINDINGS: SKULL BASE AND NECK: No suspicious hypermetabolic uptake is seen. CHEST, MEDIASTINUM, AND HILAR REGION: Reticulonodular infiltrates left upper lobe near axial image 67 are new from recent CT, correlate for acute infection. There is worsening left lower lobe consolidat ion with air bronchograms now extending towards the left hilum, mild hypermetabolic uptake is seen in the periphery near the dense area of consolidation axial image 101, max SUV is 5.71. There is stable area of consolidation right middle lobe abutting heart border near axial image 106 without hypermeta bolic uptake. There is new consolidation in the right lung base near diaphragm along area of linear s carring and/or atelectasis near axial image 114 without hypermetabolic uptake. Chronic consolidation in the lingula near diaphragm axial image 111 of mild hypermetabolic uptake, max SUV is 4.41. ABDOMEN AND PELVIS: No suspicious hypermetabolic uptake is present. Normal excretion is seen. OSSEOUS STRUCTURES: No suspicious hypermetabolic uptake is seen. OTHER CT: Heart size is mildly enlarged. Coronary artery calcification is present which is noted shante er for coronary artery disease. Prominent left hilar lymph nodes near axial image 91 are redemonstrat ed with mild hypermetabolic uptake, max SUV is 4.03. Thinning in both kidneys is seen. Uterus is surgically absent or markedly atrophic. Right-sided pelvic phlebolith noted. There is facet arthropathy in the lower lumbar spine. There is multilevel spurring in the thoracic sp ine. IMPRESSION: Areas of new consolidation identified even from most recent CT with some areas of mild hy permetabolic uptake, I do favor multifocal infectious process or pneumonia given interval change from recent CT. Neoplastic process felt much less likely.
== END ==
LOC: RADPETMAIN 09:25
PROVIDERS: ATTEND Family Medicine
DX: R91.1 Solitary pulmonary nodule (principal)
CPT/HCPCS: 78815; A9552

== ENCOUNTER → 2019-01-22 | Outpatient (CLI) | payer MEDICARE ==
--- NOTE | 2019-01-22 14:40 | CT ---
EXAMINATION TYPE: CT chest wo con DATE OF EXAM: 01/22/2019 COMPARISON: Prior CT chest 10/10/2018, PET/CT 11/15/2018 HISTORY: Follow up lung nodule. Severe persistent asthma. CT DLP: 754 mGycm. Automated Exposure Control for Dose Reduction was Utilized. TECHNIQUE: CT scan of the thorax is performed without IV contrast. FINDINGS: LUNGS: The lungs are stable in appearance, thickened parenchymal bands persist at the lung bases, the re are likely areas of bronchial mucus plugging. Consolidation in the left lower lobe is noted at t he posterior costophrenic angle which is progressed somewhat in the interval. Lingular consolidation is also present which is somewhat more extensive than on prior. There is no pleural effusion or pneum othorax seen. Bronchial wall thickening is present. MEDIASTINUM: Lack of IV contrast is noted to limit evaluation for mediastinal and especially hilar ad enopathy. There are no definitive greater than 1 cm hilar or mediastinal lymph nodes. No cardiomega ly or pericardial effusion is seen. OTHER: No additional significant abnormality is seen. IMPRESSION: There is no evident lung mass. Correlate for chronic bronchitis, mucus plugging. Noncontr ast exam could limit sensitivity.
== END | disposition home or self-care (01) ==
LOC: RADCTMAIN 12:14
PROVIDERS: ATTEND Internal Medicine Pulmonary Disease
DX: J45.51 Severe persistent asthma with (acute) exacerbation (principal)
CPT/HCPCS: 71250

== ENCOUNTER → 2019-05-29 | Outpatient (CLI) | payer MEDICARE ==
--- NOTE | 2019-05-29 13:48 | XR ---
EXAMINATION TYPE: XR thoracic spine complete 3 views, XR lumbar spine 3 views DATE OF EXAM: 05/29/2019 Comparison: None Clinical History: 78-year-old female with Pain Findings: Thoracic spine: 12 rib-bearing thoracic vertebral bodies. All pedicles are visualized. Right lateral bridging at plat e spondylosis mid to lower thoracic spine. Moderate disc/endplate degenerative change mid thoracic sp ine. No vertebral compression collapse or malalignment. Lumbar spine: Hypertrophic facet arthropathy with moderate degenerative disc disease mid to lower thoracic spine. G rade 1 anterolisthesis at L4-L5. Vertebral body heights are preserved. Impression: 1. Thoracic spine: Moderate disc/endplate degenerative change mid thoracic spine. No vertebral compre ssion collapse or malalignment. 2. Lumbar spine: Moderate degenerative disc disease and facet arthropathy mid to lower lumbar spine. Grade 1 anterolisthesis at L4-L5. No vertebral compression collapse.
== END | disposition home or self-care (01) ==
LOC: RADXRMAIN 12:41
PROVIDERS: ATTEND Family Medicine
DX: M43.16 Spondylolisthesis, lumbar region (principal); M51.36 Other intervertebral disc degeneration, lumbar region; M46.96 Unspecified inflammatory spondylopathy, lumbar region
CPT/HCPCS: 72072; 72100

== ENCOUNTER → 2019-06-27 | Outpatient (CLI) | payer MEDICARE ==
--- NOTE | 2019-06-27 14:28 | MR ---
EXAMINATION TYPE: MR brain wo/w con DATE OF EXAM: 06/27/2019 9:22 AM COMPARISON: NONE HISTORY: Headache, unbalance, falling TECHNIQUE: Multiplanar, multiecho imaging of the brain was obtained with and without intravenous adm inistration of 11 mL intravenous Gadavist. FINDINGS: This study is compromised by patient motion artifact. Midline structures structures are unremarkable. There is a normal craniocervical junction. Echoplanar diffusion imaging is normal. There are normal vascular flow voids. The orbits are normal. There is no evidence of a CP angle mass lesion. There are both punctate and confluent periventricular white matter changes compatible with a combinat ion of small vessel disease and chronic ischemic change. Other demyelinating causes could not be excl uded. There is no mass effect, midline shift or intracranial blood. Following intravenous administration of gadolinium, I do not see evidence of abnormal enhancement. IMPRESSION: 1. LIMITED EXAMINATION BY MOTION ARTIFACT. 2. NO ACUTE INTRACRANIAL ABNORMALITY. 3. BOTH PUNCTATE AND CONFLUENT PERIVENTRICULAR WHITE MATTER CHANGES COMPATIBLE WITH A COMBINATION OF SMALL VESSEL DISEASE AND CHRONIC ISCHEMIC CHANGE.
== END | disposition home or self-care (01) ==
LOC: RADMRIMAIN 08:07
PROVIDERS: ATTEND Family Medicine
DX: R90.89 Other abnormal findings on diagnostic imaging of central nervous system (principal); I67.82 Cerebral ischemia
CPT/HCPCS: 70553; A9585

== ENCOUNTER → 2019-08-18 | Outpatient (CLI) | payer MEDICARE ==
--- NOTE | 2019-08-18 13:14 | XR ---
EXAMINATION TYPE: XR thoracic spine 2V DATE OF EXAM: 08/18/2019 CLINICAL HISTORY: Fall with mid back pain. TECHNIQUE: Frontal, lateral, and swimmer's view of thoracic spine are obtained. COMPARISON: 05/29/2019. FINDINGS: Thoracic spine show satisfactory alignment without evidence of acute fracture or dislocatio n. Vertebral body heights are preserved over intervertebral disc space narrowing is seen at multiple levels with bridging anterior osteophytes of the midthoracic spine. Increasing retrocardiac airspace disease is seen. IMPRESSION: 1. No acute fracture or malalignment is seen in the thoracic spine. 2. Increasing retrocardiac airspace disease that could relate to atelectasis or pneumonia in the appr opriate clinical setting. 3. Moderate multilevel degenerative disc disease of the thoracic spine.
--- NOTE | 2019-08-19 14:41 | XR ---
Lumbar spine HISTORY: Low back pain 3 views of the lumbar spine correlated prior exam 05/29/2019 There is a slight spinal curvature as on prior exam. Anterolisthesis grade 1 L4-5, loss of disc heigh t at intervertebral levels L2-3, L3-4, L4-5 and L5-S1, there is associated vacuum phenomenon. There i s multilevel spondylosis. Sclerosis present in the posterior elements of the lower lumbar spine. IMPRESSION: Degenerative disc disease, spinal listhesis, facet arthropathy. Slight spinal curvature a s noted on prior exam.
== END | disposition home or self-care (01) ==
LOC: RADXRMAIN 11:37
PROVIDERS: ATTEND Family Medicine
DX: M51.36 Other intervertebral disc degeneration, lumbar region (principal); M43.16 Spondylolisthesis, lumbar region; M47.816 Spondylosis without myelopathy or radiculopathy, lumbar region; M41.86 Other forms of scoliosis, lumbar region; M51.34 Other intervertebral disc degeneration, thoracic region; R91.8 Other nonspecific abnormal finding of lung field
CPT/HCPCS: 72070; 72100

== ENCOUNTER → 2019-09-04 | Outpatient (CLI) | payer MEDICARE ==
[2019-09-04 14:37] LABS: Basophils # (A) 0.1 k/uL (0-0.2); Basophils % (A) 1 %; Eosinophils # (A) 0.7 k/uL (0-0.7); Eosinophils % (A) 10 %; HCT 35.7 % (34.0-46.0); HGB 11.8 gm/dL (11.4-16.0); Lymphocytes # (A) 1.6 k/uL (1.0-4.8); Lymphocytes % (A) 23 %; MCH 31.8 pg (25.0-35.0); MCHC 32.9 g/dL (31.0-37.0); MCV 96.7 fL (80.0-100.0); Mean Platelet Volume 6.3; Monocytes # (A) 0.3 k/uL (0-1.0); Monocytes % (A) 5 %; Neutrophils % (A) 59 %; Platelet Count 206 k/uL (150-450); RDW 13.3 % (11.5-15.5); WBC 6.8 k/uL (3.8-10.6)
[2019-09-04 21:16] LABS: African American GFR (CKD) 46.1 (60.0-200.0); Albumin 3.8 g/dL (3.80-4.90); Albumin/Globulin Ratio 1.31 (1.60-3.17); Anion Gap 9.9 mmol/L (4.00-12.00); BUN/Creat Ratio 15.38 Ratio (12.00-20.00); Calcium 8.7 mg/dL (8.7-10.3); Carbon Dioxide 29.1 mmol/L (21.6-31.8); Globulin 2.9 g/dL (1.6-3.3); Potassium 4.1 mmol/L (3.5-5.5); Total Bilirubin 0.4 mg/dL (0.2-1.2); Total Protein 6.7 g/dL (6.2-8.2)
[2019-09-04 21:46] LABS: T4, Free (Free Thyroxine) 0.8 ng/dL (0.80-1.80)
== END | disposition home or self-care (01) ==
LOC: LABWHC1 13:35
PROVIDERS: ATTEND Family Medicine
DX: I10 Essential (primary) hypertension (principal); J45.909 Unspecified asthma, uncomplicated; E78.00 Pure hypercholesterolemia, unspecified; M19.90 Unspecified osteoarthritis, unspecified site
CPT/HCPCS: 36415; 80053; 84439; 84443; 85025

== ENCOUNTER → 2019-11-14 | Outpatient (CLI) | payer MEDICARE ==
--- NOTE | 2019-11-20 09:55 | MM ---
Reason for exam: screening (asymptomatic). Last mammogram was performed 1 year ago. History: Patient is postmenopausal. Physical Findings: A clinical breast exam by your physician is recommended on an annual basis and results should be correlated with mammographic findings. MG 3D Screening Mammo W/Cad Bilateral CC and MLO view(s) were taken. Prior study comparison: November 04, 2018, bilateral MG 3d screening mammo w/cad. September 16, 2017, bilateral MG 3d screening mammo w/cad. There are scattered fibroglandular densities. No significant changes when compared with prior studies. ASSESSMENT: Negative, BI-RAD 1 RECOMMENDATION: Routine screening mammogram of both breasts in 1 year.
== END | disposition home or self-care (01) ==
LOC: RADMAMWWP 10:57
PROVIDERS: ATTEND Family Medicine
DX: Z12.31 Encounter for screening mammogram for malignant neoplasm of breast (principal)
CPT/HCPCS: 77063; 77067

== ENCOUNTER → 2020-04-21 | Outpatient (CLI) | payer MEDICARE | END | disposition home or self-care (01) | LOC: LABWHC1 12:18 | PROVIDERS: ATTEND Psychiatry & Neurology Pain Medicine | DX: R53.83 Other fatigue (principal) | CPT/HCPCS: 36415; 82607; 84439; 84443; 84481 ==

== ENCOUNTER → 2020-04-22 | Outpatient (CLI) | payer MEDICARE ==
--- NOTE | 2020-04-22 16:28 | US ---
EXAMINATION TYPE: US carotid duplex BILAT DATE OF EXAM: 04/22/2020 COMPARISON: NONE CLINICAL HISTORY: 79-year-old female [id number] Dizziness and giddiness. TECHNIQUE: Carotid duplex ultrasound examination. Indirect Doppler criteria was utilized. FINDINGS: EXAM MEASUREMENTS: RIGHT: Peak Systolic Velocity (PSV) cm/sec ----- Right CCA: 68.6 ----- Right ICA: 72.9 ----- Right ECA: 57.5 ICA/CCA ratio: 1.1 RIGHT: End Diastole cm/sec ----- Right CCA: 13.5 ----- Right ICA: 18.8 ----- Right ECA: 0.0 LEFT: Peak Systolic Velocity (PSV) cm/sec ----- Left CCA: 73.1 ----- Left ICA: 76.0 ----- Left ECA: 50.3 ICA/CCA ratio: 1.0 LEFT: End Diastole cm/sec ----- Left CCA: 13.0 ----- Left ICA: 19.0 ----- Left ECA: 17.1 VERTEBRALS (direction of flow): Right Vertebral: Antegrade Left Vertebral: Antegrade Rhythm: Normal Comptometer Operator notes: Mild plaque with no significant velocity elevations. IMPRESSION: No hemodynamically significant proximal ICA stenosis on either side. Criteria for Assigning % of Stenosis / Diameter reduction (Estimation based on the indirect measurements of the internal carotid artery velocities (ICA PSV). 1. Normal (no stenosis)=ICA PSV < 125 cm/s: ratio < 2.0: ICA EDV<40 cm/s. 2. Less than 50% stenosis=ICA PSV < 125 cm/s: ratio < 2.0: ICA EDV<40 cm/s. 3. 50 to 69% stenosis=ICA PSV of 125 to 230 cm/s: ration 2.0 ? 4.0: ICA EDV 40-100 cm/s. 4. Greater than 70% stenosis to near occlusion= ICA PSV > 230 cm/s: ratio > 4.0: ICA EDV > 100 cm/s. 5. Near occlusion= ICA PSV velocities may be low or undetectable: variable ratio and ICA EDV. 6. Total occlusion=unable to detect flow.
== END | disposition home or self-care (01) ==
LOC: RADUSWWP 15:24
PROVIDERS: ATTEND Psychiatry & Neurology Neurology
DX: R42 Dizziness and giddiness (principal)
CPT/HCPCS: 93880

== ENCOUNTER → 2020-12-07 | Outpatient (CLI) | payer MEDICARE ==
--- NOTE | 2020-12-08 13:41 | MM ---
Reason for exam: screening (asymptomatic). Last mammogram was performed 1 year and 1 month ago. History: Patient is postmenopausal. Physical Findings: A clinical breast exam by your physician is recommended on an annual basis and results should be correlated with mammographic findings. MG 3D Screening Mammo W/Cad Bilateral CC and MLO view(s) were taken. Prior study comparison: November 14, 2019, bilateral MG 3d screening mammo w/cad. November 04, 2018, bilateral MG 3d screening mammo w/cad. There are scattered fibroglandular densities. Asymmetric breast tissue right breast, stable. There is no discrete abnormality. ASSESSMENT: Negative, BI-RAD 1 RECOMMENDATION: Routine screening mammogram of both breasts in 1 year.
== END | disposition home or self-care (01) ==
LOC: RADMAMWWP 10:48
PROVIDERS: ATTEND Family Medicine
DX: Z12.31 Encounter for screening mammogram for malignant neoplasm of breast (principal)
CPT/HCPCS: 77063; 77067

== ENCOUNTER → 2020-12-19 | Outpatient (CLI) | payer MEDICARE ==
--- NOTE | 2020-12-19 16:13 | MR ---
EXAMINATION TYPE: MR lumbar spine wo con DATE OF EXAM: 12/19/2020 COMPARISON: Lumbar spine x-ray August 18, 2019. HISTORY: Low back pain. Spondylolisthesis, scoliosis, spinal stenosis, and spondylosis all per order. TECHNIQUE: Multiplanar, multisequence imaging of the lumbar spine is performed without IV contrast. FINDINGS: Exam suboptimal as patient unable to hold still. There is persistent levoconvex scoliosis c entered at L3-L4 level. Sagittal images of the lumbar spine show vertebral body height is to remain s atisfactory. There is slight grade 1 anterolisthesis L4 on L5 redemonstrated. Multilevel disc desicca tion is present. Moderate disc space narrowing with heterogeneous Modic type II endplate change L5-S1 level. Mild disc space narrowing with vacuum disc phenomenon L4-L5 level. Moderate disc space narrow ing L2-L3 and L3-L4 levels with heterogeneous Modic type II endplate changes and mild anterior spurri ng. The conus medullaris is normal in position and signal ending inferior L1 level. Axial images show T12-L1 and L1-L2 levels to appear within normal limits. Axial images at the L2-L3 level show mild to moderate facet degenerative changes mildly effacing righ t posterior lateral thecal sac and mild broad disc bulge mildly effacing the anterior thecal sac. Pat ent bilateral neural foramina. Axial images at L3-L4 level show mild broad disc bulge with right paracentral disc protrusion compone nt effacing the anterior thecal sac. There is mild/moderate facet degenerative changes and ligament f lavum hypertrophy effacing posterior lateral thecal sac. Mild to moderate right-sided anterior inferi or neural foraminal narrowing. Left-sided neural foramina patent. Axial images at the L4-L5 level show moderate to advanced facet degenerative changes bilaterally and ligamentous flavum hypertrophy significantly effacing the posterior aspect of the thecal sac on both right and left sides axial image 7 for reference. There is spondylolisthesis contributing to spinal c anal stenosis. Patent bilateral neural foramina. Axial images at the L5-S1 level show [id number] broad disc bulge and mild facet arthropathy. Pa tent spinal canal. Patent bilateral neural foramina. Mild to moderate generalized fat replaced atrophy of the posterior paraspinal muscles. IMPRESSION: Multilevel degenerative changes as detailed above. Most prominent spinal canal effacement or stenosis noted L4-L5 level.
== END | disposition home or self-care (01) ==
LOC: RADMRIMAIN 14:55
PROVIDERS: ATTEND Physical Medicine & Rehabilitation
DX: M48.061 Spinal stenosis, lumbar region without neurogenic claudication (principal); M47.816 Spondylosis without myelopathy or radiculopathy, lumbar region; M47.817 Spondylosis without myelopathy or radiculopathy, lumbosacral region; M43.16 Spondylolisthesis, lumbar region; M41.26 Other idiopathic scoliosis, lumbar region
CPT/HCPCS: 72148

== ENCOUNTER → 2021-02-28 | Outpatient (CLI) | payer MEDICARE ==
--- NOTE | 2021-02-28 14:01 | CT ---
EXAMINATION TYPE: CT chest w con DATE OF EXAM: 02/28/2021 COMPARISON: 01/22/2019 HISTORY: Recurring infection CT DLP: 584.5 mGycm Automated exposure control for dose reduction was used. TECHNIQUE: CT scan of the chest is performed with IV Contrast, patient injected with 70 mL of Isovue 300. MIP I mages are created on CT scanner and reviewed. 3D reconstructed images are created on an independent w orkstation and reviewed. FINDINGS: LUNGS: Basilar bronchiectasis again noted greatest in the left lower lobe. Subsegmental linear change s and groundglass changes most likely in the basis of atelectasis. There is a 2 mm right middle lobe pulmonary nodule stable from prior exam. Additional 1 mm nodule sup erior segment right lower lobe retrospectively stable. No pleural effusion or pneumothorax. Suspected degree of mucous plugging involving the distal bronchioles of the right lower lobe. Mild underlying changes of COPD. MEDIASTINUM: There are no greater than 1 cm hilar or mediastinal lymph nodes. Atherosclerotic change of the coronary arteries. OTHER: Hypertrophic and degenerative change of the spine. Scoliotic curvature noted. IMPRESSION: 1. COPD and changes of chronic bronchiectasis stable. 2. Sub-5 mm pulmonary nodules unchanged from prior exam. 3. Areas of subsegmental consolidation most typical of atelectasis correlate clinically.
== END | disposition home or self-care (01) ==
LOC: RADCTMAIN 11:17
PROVIDERS: ATTEND Family Medicine
DX: J47.9 Bronchiectasis, uncomplicated (principal); R19.8 Other specified symptoms and signs involving the digestive system and abdomen; J18.9 Pneumonia, unspecified organism; R09.02 Hypoxemia
CPT/HCPCS: 82565; 84520; 71260; 36415; Q9967

== ENCOUNTER 2021-09-18 10:48 | Inpatient (IN) | payer MEDICARE ==
[2021-09-18] MEDS ORDERED: SODIUM CHLORIDE 0.9% 500 ML 500 ML IV STA (10:55)
[2021-09-18 11:00] LABS: Glucose,Whole Blood 95 mg/dL (75-99)
[2021-09-18 11:23] LABS: Basophils # (A) 0.1 k/uL (0-0.2); Basophils % (A) 1 %; Eosinophils # (A) 0.3 k/uL (0-0.7); Eosinophils % (A) 4 %; HCT 38.9 % (34.0-46.0); HGB 12.4 gm/dL (11.4-16.0); Lymphocytes # (A) 1.4 k/uL (1.0-4.8); Lymphocytes % (A) 18 %; MCH 30.5 pg (25.0-35.0); MCHC 31.9 g/dL (31.0-37.0); MCV 95.6 fL (80.0-100.0); Mean Platelet Volume 7.8; Monocytes # (A) 0.4 k/uL (0-1.0); Monocytes % (A) 5 %; Neutrophils # (A) 5.4 k/uL (1.3-7.7); Neutrophils % (A) 70 %; Platelet Count 276 k/uL (150-450); RBC 4.07 m/uL (3.80-5.40); RDW 15.3 % (11.5-15.5); WBC 7.7 k/uL (3.8-10.6)
[2021-09-18 11:25] LABS: VBG PH 7.37 (7.31-7.41)
--- NOTE | 2021-09-18 11:30 | XR ---
EXAMINATION TYPE: XR chest 2V DATE OF EXAM: 09/18/2021 COMPARISON: 01/10/18 HISTORY: Shortness of breath TECHNIQUE: Frontal and lateral views of the chest are obtained. FINDINGS: Scattered senescent parenchymal changes noted. Hyperinflation compatible with COPD. No evidence for infiltrate. No evidence for atelectasis. Heart size is stable. Mediastinal structures are stable and grossly unremarkable. No evidence for hilar prominence. Degenerative changes dorsal spine. IMPRESSION: 1. No evidence for acute pulmonary disease.
--- NOTE | 2021-09-18 11:32 | CT ---
EXAMINATION TYPE: CT brain wo con for TPA DATE OF EXAM: 09/18/2021 COMPARISON: none HISTORY: CODE STROKE CT DLP: Not available at time of entry mGycm Unenhanced CT of the brain was performed. The ventricles, basal cisterns and sulci overlying the cerebral convexities demonstrate mild enlargem ent. There is no evidence for intracranial hemorrhage or sulcal effacement. There is decreased attenuation about the periventricular white matter and deep white matter of both c erebral hemispheres, compatible with chronic small vessel ischemia. Differential diagnosis does inclu de demyelination. No mass effects are seen.No midline shift. Osseous calvarium is intact. If symptoms persist consider MRI. IMPRESSION: 1. Age related atrophic and chronic small vessel ischemic change without acute intracranial process s een at this time.
--- NOTE | 2021-09-18 11:32 | ED ---
General Adult HPI - General Chief complaint: Altered Mental Status Stated complaint: Altered Mental Status Time Seen by Provider: 09/18/21 10:51 Source: patient, family, EMS, RN notes reviewed, old records reviewed Mode of arrival: EMS Limitations: altered mental status - History of Present Illness Initial comments: 80-year-old female presenting with altered mental status, confusion which began this morning upon wakening at approximately 7:30 AM. History is obtained from the paramedics as well as the patient's . states that several weeks ago she had a similar aspirin a solid lasting approximately 30 minutes this resolved without treatment. This morning she had gotten out of bed about 7:30 she was confused, she was responsive but not answering appropriately. She was sitting at the computer but not doing anything. Paramedics had convince the patient to come to the emergency department for evaluation. Stroke scale was negative for paramedics. No history of fever. No history of vomiting. No pain complaints. - Related Data Home Medications Medication Instructions Recorded Confirmed Cetirizine HCl 10 mg PO DAILY 02/04/17 01/06/18 DULoxetine HCL [Cymbalta] 60 mg PO DAILY 02/04/17 01/06/18 Ferrous Sulfate [Iron (65 MG 325 mg PO DAILY 02/04/17 01/06/18 Elemental)] Fluticasone/Salmeterol [Advair 1 inhalation PO RT-BID 02/04/17 01/06/18 500-50 Diskus] Lovastatin [Mevacor] 40 mg PO HS 02/04/17 01/06/18 Melatonin 5 mg PO HS 02/04/17 01/06/18 Multivitamins, Thera [Multivitamin 1 tab PO DAILY 02/04/17 01/06/18 (formulary)] Nortriptyline [Pamelor] 50 mg PO HS 02/04/17 01/06/18 Omeprazole 40 mg PO HS 02/04/17 01/06/18 Thyroid,Pork [Rogers Thyroid] 90 mg PO DAILY 02/04/17 01/06/18 Topiramate [Topamax] 100 mg PO BID 02/04/17 01/06/18 amLODIPine BESYLATE [Norvasc] 5 mg PO DAILY 02/04/17 01/06/18 Calcium Carbonate/Vitamin D3 1 tab PO BID 04/27/17 02/12/18 [Calcium 600-Vit D3 400 Caplet] Ketoconazole 2% Cream [Nizoral 2%] 1 applic TOPICAL BID PRN 03/21/17 01/06/18 Celecoxib [CeleBREX] 200 mg PO DAILY 01/06/18 01/06/18 Magnesium Oxide [Mag-Ox] 250 mg PO DAILY 01/06/18 01/06/18 nadoloL [Corgard] 20 mg PO DAILY 01/06/18 01/06/18 Previous Rx's Medication Instructions Recorded Levofloxacin [Levaquin] 750 mg PO Q48H #2 tab 01/11/18 Spironolactone [Aldactone] 50 mg PO DAILY tab 01/11/18 predniSONE 30 mg PO DAILY #9 tab 01/11/18 Allergies Allergy/AdvReac Type Severity Reaction Status Date / Time peanut Allergy Anaphylaxis Verified 01/06/18 13:17 Review of Systems ROS Statement: Those systems with pertinent positive or pertinent negative responses have been documented in the HPI. ROS Other: All systems not noted in ROS Statement are negative. Past Medical History Past Medical History: Asthma, Fibromyalgia, GERD/Reflux, Hearing Disorder / Deaf ness, Hyperlipidemia, Hypertension, Pneumonia, Renal Disease, Skin Disorder, Thyroid Disorder Additional Past Medical History / Comment(s): ANEMIA (HX OF IRON INFUSIONS),CHRONIC BACK PAIN DDD, BACK INJ,MIGRAINE HEADACHES, STATES "LITTLE SORES" ON HER FACE AT SCALP LINE., [place] (DOES NOT WEAR HER HEARING AIDS),past BLEEDING HEMORRHOIDS (had sx).SINUS,"TOLD ONE KIDNEY SMALLER THAN OTHER AND ONE KIDNEY HAS A CYST ON IT.DIVERTICULOSIS. History of Any Multi-Drug Resistant Organisms: None Reported Past Surgical History: Appendectomy, Heart Catheterization, Hysterectomy, Joint Replacement, Tonsillectomy Additional Past Surgical History / Comment(s): rt knee replacement, madonna cataract.COLONOSCOPY, HEMORRHOIDECTOMY. Past Anesthesia/Blood Transfusion Reactions: Motion Sickness Past Psychological History: No Psychological Hx Reported Past Alcohol Use History: None Reported Past Drug Use History: None Reported - Past Family History Mother Family Medical History: No Reported History Father Family Medical History: Cancer Additional Family Medical History / Comment(s): lung cancer General Exam Limitations: altered mental status General appearance: alert, in no apparent distress Head exam: Present: atraumatic, normocephalic Eye exam: Present: normal appearance, PERRL ENT exam: Present: mucous membranes dry Neck exam: Present: normal inspection. Absent: tenderness, meningismus Respiratory exam: Present: normal lung sounds bilaterally. Absent: respiratory distress, wheezes Cardiovascular Exam: Present: regular rate, normal rhythm GI/Abdominal exam: Present: soft. Absent: distended, tenderness, guarding Extremities exam: Present: normal inspection, normal capillary refill. Absent: pedal edema Neurological exam: Present: alert, CN II-XII intact, other (No focal findings, patient has some word finding difficulty, slow to answer.). Absent: oriented X3 (1), motor sensory deficit Psychiatric exam: Present: normal affect, normal mood Skin exam: Present: warm, dry, intact. Absent: cyanosis, diaphoretic Course Vital Signs 09/18/21 09/18/21 10:50 11:05 Pulse Rate 89 73 Respiratory 18 18 Rate Blood Pressure 191/131 185/118 O2 Sat by Pulse 95 98 Oximetry - Reevaluation(s) Reevaluation #1: 09/18/21 11:15 Patient's care discussed with Dr. Hill covering for stroke. Awaiting imaging. EKG Findings - EKG Comments: EKG Findings:: EKG: Normal sinus rhythm left axis, no ST segment elevation, rate of 81, SD interval 134, QRS duration 80, QTC 441 Medical Decision Making - Medical Decision Making 80-year-old female presenting with acute confusion. Patient was evaluated as an activated code stroke. Low NIH, no focal neurological findings on exam. She is hypertensive with otherwise stable vitals. Both CT CT angiography are performed which are negative. Chest x-rays negative for acute cardio pulmonary disease. She has a normal CBC, normal CMP, urinalysis to show some red cells however this was a straight cath, may be traumatic. Patient remains confused. I discussed case both with the admitting physician Dr. Barnes and with the stroke neurologist throughout the patient's evaluation in the emergency department. She will be admitted with neurology placed on consult. - Lab Data Result diagrams: 09/18/21 11:03 09/18/21 11:03 Lab Results 09/18/21 09/18/21 09/18/21 Range/Units 10:56 11:03 11:03 WBC 7.7 (3.8-10.6) k/uL RBC 4.07 (3.80-5.40) m/uL Hgb 12.4 (11.4-16.0) gm/dL Hct 38.9 (34.0-46.0) % MCV 95.6 (80.0-100.0) fL MCH 30.5 (25.0-35.0) pg MCHC 31.9 (31.0-37.0) g/dL RDW 15.3 (11.5-15.5) % Plt Count 276 (150-450) k/uL MPV 7.8 Neutrophils % 70 % Lymphocytes % 18 % Monocytes % 5 % Eosinophils % 4 % Basophils % 1 % Neutrophils # 5.4 (1.3-7.7) k/uL Lymphocytes # 1.4 (1.0-4.8) k/uL Monocytes # 0.4 (0-1.0) k/uL Eosinophils # 0.3 (0-0.7) k/uL Basophils # 0.1 (0-0.2) k/uL PT 11.0 (9.0-12.0) sec INR 1.0 (<1.2) APTT 25.3 (22.0-30.0) sec VBG pH (7.31-7.41) VBG pCO2 (37-51) mmHg VBG HCO3 (24-28) mmol/L Sodium (137-145) mmol/L Potassium (3.5-5.1) mmol/L Chloride (98-107) mmol/L Carbon Dioxide (22-30) mmol/L Anion Gap mmol/L BUN (7-17) mg/dL Creatinine (0.52-1.04) mg/dL Est GFR (CKD-EPI)AfAm (>60 ml/min/1.73 sqM) Est GFR (CKD-EPI)NonAf (>60 ml/min/1.73 sqM) Glucose (74-99) mg/dL POC Glucose (mg/dL) 95 (75-99) mg/dL POC Glu Handbook Writer ID Maria Teresa Alvarado Plasma Lactic Acid Vinayak (0.7-2.0) mmol/L Calcium (8.4-10.2) mg/dL Magnesium (1.6-2.3) mg/dL Total Bilirubin (0.2-1.3) mg/dL AST (14-36) U/L ALT (4-34) U/L Alkaline Phosphatase (38-126) U/L Troponin I (0.000-0.034) ng/mL Total Protein (6.3-8.2) g/dL Albumin (3.5-5.0) g/dL Urine Color Urine Appearance (Clear) Urine pH (5.0-8.0) Ur Specific [place] (1.001-1.035) Urine Protein (Negative) Urine Glucose (UA) (Negative) Urine Ketones (Negative) Urine Blood (Negative) Urine Nitrite (Negative) Urine Bilirubin (Negative) Urine Urobilinogen (<2.0) mg/dL Ur Leukocyte Esterase (Negative) Urine RBC (0-5) /hpf Urine WBC (0-5) /hpf Ur Squamous Epith Cells (0-4) /hpf Urine Mucus (None) /hpf Coronavirus (PCR) (Not Detectd) 09/18/21 09/18/21 09/18/21 Range/Units 11:03 11:03 11:03 WBC (3.8-10.6) k/uL RBC (3.80-5.40) m/uL Hgb (11.4-16.0) gm/dL Hct (34.0-46.0) % MCV (80.0-100.0) fL MCH (25.0-35.0) pg MCHC (31.0-37.0) g/dL RDW (11.5-15.5) % Plt Count (150-450) k/uL MPV Neutrophils % % Lymphocytes % % Monocytes % % Eosinophils % % Basophils % % Neutrophils # (1.3-7.7) k/uL Lymphocytes # (1.0-4.8) k/uL Monocytes # (0-1.0) k/uL Eosinophils # (0-0.7) k/uL Basophils # (0-0.2) k/uL PT (9.0-12.0) sec INR (<1.2) APTT (22.0-30.0) sec VBG pH (7.31-7.41) VBG pCO2 (37-51) mmHg VBG HCO3 (24-28) mmol/L Sodium 137 (137-145) mmol/L Potassium 4.2 (3.5-5.1) mmol/L Chloride 104 (98-107) mmol/L Carbon Dioxide 20 L (22-30) mmol/L Anion Gap 13 mmol/L BUN 17 (7-17) mg/dL Creatinine 1.08 H (0.52-1.04) mg/dL Est GFR (CKD-EPI)AfAm 57 (>60 ml/min/1.73 sqM) Est GFR (CKD-EPI)NonAf 49 (>60 ml/min/1.73 sqM) Glucose 98 (74-99) mg/dL POC Glucose (mg/dL) (75-99) mg/dL POC Glu Handbook Writer ID Plasma Lactic Acid Vinayak 0.9 (0.7-2.0) mmol/L Calcium 10.0 (8.4-10.2) mg/dL Magnesium 1.9 (1.6-2.3) mg/dL Total Bilirubin 1.2 (0.2-1.3) mg/dL AST 20 (14-36) U/L ALT 10 (4-34) U/L Alkaline Phosphatase 89 (38-126) U/L Troponin I <0.012 (0.000-0.034) ng/mL Total Protein 7.6 (6.3-8.2) g/dL Albumin 4.0 (3.5-5.0) g/dL Urine Color Urine Appearance (Clear) Urine pH (5.0-8.0) Ur Specific [place] (1.001-1.035) Urine Protein (Negative) Urine Glucose (UA) (Negative) Urine Ketones (Negative) Urine Blood (Negative) Urine Nitrite (Negative) Urine Bilirubin (Negative) Urine Urobilinogen (<2.0) mg/dL Ur Leukocyte Esterase (Negative) Urine RBC (0-5) /hpf Urine WBC (0-5) /hpf Ur Squamous Epith Cells (0-4) /hpf Urine Mucus (None) /hpf Coronavirus (PCR) (Not Detectd) 09/18/21 09/18/21 09/18/21 Range/Units 11:03 11:03 11:40 WBC (3.8-10.6) k/uL RBC (3.80-5.40) m/uL Hgb (11.4-16.0) gm/dL Hct (34.0-46.0) % MCV (80.0-100.0) fL MCH (25.0-35.0) pg MCHC (31.0-37.0) g/dL RDW (11.5-15.5) % Plt Count (150-450) k/uL MPV Neutrophils % % Lymphocytes % % Monocytes % % Eosinophils % % Basophils % % Neutrophils # (1.3-7.7) k/uL Lymphocytes # (1.0-4.8) k/uL Monocytes # (0-1.0) k/uL Eosinophils # (0-0.7) k/uL Basophils # (0-0.2) k/uL PT (9.0-12.0) sec INR (<1.2) APTT (22.0-30.0) sec VBG pH 7.37 (7.31-7.41) VBG pCO2 38 (37-51) mmHg VBG HCO3 22 L (24-28) mmol/L Sodium (137-145) mmol/L Potassium (3.5-5.1) mmol/L Chloride (98-107) mmol/L Carbon Dioxide (22-30) mmol/L Anion Gap mmol/L BUN (7-17) mg/dL Creatinine (0.52-1.04) mg/dL Est GFR (CKD-EPI)AfAm (>60 ml/min/1.73 sqM) Est GFR (CKD-EPI)NonAf (>60 ml/min/1.73 sqM) Glucose (74-99) mg/dL POC Glucose (mg/dL) (75-99) mg/dL POC Glu Handbook Writer ID Plasma Lactic Acid Vinayak (0.7-2.0) mmol/L Calcium (8.4-10.2) mg/dL Magnesium (1.6-2.3) mg/dL Total Bilirubin (0.2-1.3) mg/dL AST (14-36) U/L ALT (4-34) U/L Alkaline Phosphatase (38-126) U/L Troponin I (0.000-0.034) ng/mL Total Protein (6.3-8.2) g/dL Albumin (3.5-5.0) g/dL Urine Color Yellow Urine Appearance Clear (Clear) Urine pH 5.5 (5.0-8.0) Ur Specific [place] 1.040 H (1.001-1.035) Urine Protein 1+ H (Negative) Urine Glucose (UA) Negative (Negative) Urine Ketones 1+ H (Negative) Urine Blood Large H (Negative) Urine Nitrite Negative (Negative) Urine Bilirubin Negative (Negative) Urine Urobilinogen <2.0 (<2.0) mg/dL Ur Leukocyte Esterase Negative (Negative) Urine RBC 138 H (0-5) /hpf Urine WBC 1 (0-5) /hpf Ur Squamous Epith Cells <1 (0-4) /hpf Urine Mucus Rare H (None) /hpf Coronavirus (PCR) Not Detected (Not Detectd) Disposition Clinical Impression: Altered mental status Disposition: ADMITTED IP TO THIS HOSP Condition: Stable Is patient prescribed a controlled substance at d/c from ED?: No Referrals: Ariane Daniel DO [Primary Care Provider] - 1-2 days Decision to Admit Reason: Admit from EC Decision Date: 09/18/21 Decision Time: 13:11
[2021-09-18 11:52] LABS: Partial Thromboplastin Time 25.3 sec (22.0-30.0)
[2021-09-18 11:53] LABS: Magnesium 1.9 mg/dL (1.6-2.3); Potassium 4.2 mmol/L (3.5-5.1); Total Bilirubin 1.2 mg/dL (0.2-1.3); Total Protein 7.6 g/dL (6.3-8.2)
[2021-09-18] MEDS ORDERED: ASPIRIN 325 MG TAB PO STA (11:53)
[2021-09-18 12:17] LABS: Appearance,Urine Clear (Clear); Bilirubin,Urine Negative (Negative); Blood,Urine Large (Negative); Color,Urine Yellow; Glucose,Urine (UA) Negative (Negative); Ketones,Urine 1+ (Negative); Leukocyte Esterase,Urine Negative (Negative); Mucus,Urine Rare /hpf; Nitrite,Urine Negative (Negative); PH, Urine 5.5 (5.0-8.0); Protein,Urine 1+ (Negative); RBC,Urine 138 /hpf (0-5); Squamous Epithelial Cell,Urine <1 /hpf (0-4); Urobilinogen,Urine <2.0 mg/dL (<2.0); WBC,Urine 1 /hpf (0-5)
--- NOTE | 2021-09-18 12:18 | CT ---
EXAMINATION TYPE: CT angio head neck DATE OF EXAM: 09/18/2021 COMPARISON: None HISTORY: CODE STROKE CT DLP: 705.5 mGycm CONTRAST: Performed without and with IV Contrast, patient injected with 65 ML mL of Isovue 370. Combination Contrast CTA cervical carotids and [place] CTA cervical carotids with 3-D recons truction Contrast CTA of the cervical carotids was performed 3-D reconstruction imaging obtained at a separate workstation. Right carotid system: Mild plaque is seen of the right common carotid artery. There is mild plaque a lso noted at the carotid bulb and proximal ICA. No significant diameter reduction. ECA is patent. Right vertebral artery appears unremarkable. Left carotid system: Mild plaque is seen of the left common carotid artery. There is mild plaque als o noted at the carotid bulb and proximal ICA. No significant diameter reduction. ECA is patent. Lef t vertebral artery appears unremarkable. IMPRESSION: 1. No significant diameter reduction to account for the patient's symptoms. CTA [place] with 3-D reconstruction Contrast CTA of the [place] was performed 3-D reconstruction imaging obtained at a separate workstation. Vertebrobasilar system as well as intracranial portions of the internal carotid arteries and their ma lang tributaries are patent. I do not see evidence for sizable aneurysm or vascular malformation. Pl ease note MRI provides greater sensitivity and specificity. Visualized brain appears grossly unremar kable. IMPRESSION: 1. No significant abnormality. NASCET criteria was used in interpretation of this exam?
[2021-09-18] MEDS ORDERED: hydrALAZINE HCL 20 MG/ML 1 ML VIAL IVP STA (13:24)
[2021-09-18] MEDS: HYDROcodone/APAP 5-325MG 1 EACH TAB PO STA ×2 (14:03→14:06)
[2021-09-18] MEDS ORDERED: HYDROcodone/APAP 7.5-325MG 1 EACH TAB PO ONE (14:09)
--- NOTE | 2021-09-18 16:05 | P.CNNES ---
History of Present Illness Consult date: 09/18/21 Requesting physician: Miguel Schwab Reason for Consult: altered mental status History of Present Illness: This is a 80-year-old woman with medical history of migraine, hypertension, hyperlipidemia, very hard of hearing of both ears, hypothyroidism, anemia, chronic back pain, fibromyalgia presented emergency department via EMS on 09/18/2021 for altered mental status. History is obtaine from the patient who is at bedside. The patient's confusion began around 7am today upon waking up. The patient's the patient woke up and that she was going from the bathroom and to the bedroom [id number] when she was coming to the bedroom she was sitting at the side of the bed. Per the he stated that the she was not acting herself. She was responding but the not answering appropriately. She said on the computer and desk and that usually she is able to turn on the computer about this time she did not try on the computer which was off. Her last normal state was 11 PM yesterday. Per the patient's the there is no jerking of any extremities, no fix eye deviation, no foaming around the mouth or urinary or bowel incontinence. Patient does not have any history of stroke or TIAs. He stated that she had a similar episode a couple months ago but was very brief and resolved. stated that she is on multiple medication in the past she was on gabapentin and that was stopped because that was given her confusion. She is not on any new medications. She does not have any headaches, nausea, vomiting, fever or any recent travel. No the contacts. The patient feels a her mentation is improving. Patient is on multiple medication and some home consist of baclofen 10mg 1 tab every 12 hours, Synthroid, Topamax 25 mg, melatonin 5 mg daily at bedtime, Plavix 75 mg, lovastatin 40 mg, Benadryl 150 mg daily at bedtime, magnesium oxide, after sulfate, multivitamins, calcium carbonate with vitamin D 3, Celebrex 200 mg daily, nortriptyline 25 mg daily, Cymbalta 60 mg daily, amlodipine 2.5 mg, nadolol 20mg qam, amlodipine 2.5mg, [place]. Some of the workup in the hospital consisted of: Initial vital signs: Blood pressure of 191/131, heart rate of 89, respiratory of 18, temperature of 95% room air. Patient had repeated the blood pressure reading and it was in the 180s to 190 systolic and diastolic in the range of 80s to 110. In the ED the patient was evaluated as a stroke code. The patient had low NIH per the ED team and had no focal neurological deficit on exam. CT of the head is reported as age-related atrophy. Chronic small vessel ischemic change without acute intracranial process seen this time. CT angiography of the head and neck is negative CBC with differential is unremarkable Chemistry panel: Sodium is 137, creatinine is 1.08, serum glucose is 98, calcium 7.0, magnesium is 1.9, AST of 20 and ALT of 10. Urinalysis seems get of for urinary tract infection. Patient had urine now blood that was large and the report urine red blood cell is 138. Story virus PCR was not detected. Review of Systems Review of system: The 12 point system was reviewed and apparent positive and negative per HPI. Past Medical History Past Medical History: Asthma, Fibromyalgia, GERD/Reflux, Hearing Disorder / Deafness, Hyperlipidemia, Hypertension, Pneumonia, Renal Disease, Skin Disorder, Thyroid Disorder Additional Past Medical History / Comment(s): ANEMIA (HX OF IRON INFUSIONS),CHRONIC BACK PAIN DDD, BACK INJ,MIGRAINE HEADACHES, STATES "LITTLE SORES" ON HER FACE AT SCALP LINE., [place] (DOES NOT WEAR HER HEARING AIDS),past BLEEDING HEMORRHOIDS (had sx).SINUS,"TOLD ONE KIDNEY SMALLER THAN OTHER AND ONE KIDNEY HAS A CYST ON IT.DIVERTICULOSIS. History of Any Multi-Drug Resistant Organisms: None Reported Past Surgical History: Appendectomy, Heart Catheterization, Hysterectomy, Joint Replacement, Tonsillectomy Additional Past Surgical History / Comment(s): rt knee replacement, [place] cataract.COLONOSCOPY, HEMORRHOIDECTOMY. Past Anesthesia/Blood Transfusion Reactions: Motion Sickness Past Psychological History: No Psychological Hx Reported Past Alcohol Use History: None Reported Past Drug Use History: None Reported - Past Family History Mother Family Medical History: No Reported History Father Family Medical History: Cancer Additional Family Medical History / Comment(s): lung cancer Medications and Allergies Home Medications Medication Instructions Recorded Confirmed Type Cetirizine HCl 10 mg PO DIRECTED 02/04/17 09/18/21 History DULoxetine HCL [Cymbalta] 60 mg PO DAILY 02/04/17 09/18/21 History Ferrous Sulfate [Iron (65 MG 325 mg PO DAILY 02/04/17 09/18/21 History Elemental)] Fluticasone/Salmeterol [Advair 1 puff INHALATION RT-BID 02/04/17 09/18/21 History 500-50 Diskus] Lovastatin [Mevacor] 40 mg PO DIRECTED 02/04/17 09/18/21 History Melatonin 5 mg PO HS 02/04/17 09/18/21 History Multivitamins, Thera [Multivitamin 1 tab PO DAILY 02/04/17 09/18/21 History (formulary)] Thyroid,Pork [[place] Thyroid] 90 mg PO DIRECTED 02/04/17 09/18/21 History Calcium Carbonate/Vitamin D3 1 tab PO BID 03/21/17 09/18/21 History [Calcium 600-Vit D3 400 [place]] Celecoxib [CeleBREX] 200 mg PO DAILY 01/06/18 09/18/21 History Magnesium Oxide [Mag-Ox] 250 mg PO DAILY 01/06/18 09/18/21 History nadoloL [Corgard] 20 mg PO DIRECTED 01/06/18 09/18/21 History Baclofen [Lioresal] 10 mg PO DIRECTED 09/18/21 09/18/21 History Clopidogrel Bisulfate [Plavix] 75 mg PO DIRECTED 09/18/21 09/18/21 History Gabapentin [Neurontin] 300 mg PO DIRECTED 09/18/21 09/18/21 History Galcanezumab-Gnlm [Emgality 120 mg SQ QMONTHLY 09/18/21 09/18/21 History Syringe] Hydrocodone/Acetaminophen [[place] 1 tab PO Q6HR PRN 09/18/21 09/18/21 History 7.5-325] Levothyroxine Sodium 100 mcg PO DAILY 09/18/21 09/18/21 History Montelukast [Singulair] 10 mg PO HS 09/18/21 09/18/21 History Nortriptyline [Pamelor] 25 mg PO HS 09/18/21 09/18/21 History Omeprazole [PriLOSEC] 40 mg PO DIRECTED 09/18/21 09/18/21 History [place]oc[place]ine [Salagen] 5 mg PO DIRECTED 09/18/21 09/18/21 History Topiramate [Topamax] 25 mg PO DIRECTED 09/18/21 09/18/21 History amLODIPine [Norvasc] 2.5 mg PO DAILY 09/18/21 09/18/21 History diphenhydrAMINE [Benadryl] 150 mg PO HS 09/18/21 09/18/21 History Allergies Allergy/AdvReac Type Severity Reaction Status Date / Time peanut Allergy Anaphylaxis Verified 01/06/18 13:17 Physical Examination - Vital Signs Vital Signs: Vital Signs Pulse Resp BP Pulse Ox 09/18/21 13:00 76 18 180/104 98 09/18/21 12:30 82 18 190/92 98 09/18/21 12:00 76 18 193/95 98 09/18/21 11:45 78 18 189/104 98 09/18/21 11:30 77 18 189/103 98 09/18/21 11:15 79 18 196/81 98 09/18/21 11:05 73 18 185/118 98 09/18/21 10:50 89 18 191/131 95 Intake and Output 09/18/21 09/18/21 09/18/21 06:59 14:59 22:59 Other: Weight 81.647 kg GENERAL: The patient is lying in bed and is mild to moderate in acute distress. CHEST: The heart rate is regular rate rhythm. No murmurs to auscultation. LUNG: Clear to auscultation bilaterally no wheezing noted throughout. Not labored breathing. ABDOMEN/GI: Bowel sounds present in all 4 quadrants. No tenderness to palpation throughout. NEUROLOGICAL: Limited because of he rcooperation. Higher mental function: The patient is awake, alert, oriented to self and place. She stated the year is 2020 and did not know the moth (which is her baseline per ). She is able to name objects correctly (pen, glasses). Upon showing her watch she stated clock. She had some word finding difficulty. She had to think about the name of her sister and had difficulty stating that her sister is younger than her. Patient is following simple commands. Has some word finding difficultities. No neglect. Cranial nerves: The pupils are round, equal and reactive to light and accom modation. Visual [place] are full to confrontation throughout. Extraocular movement is intact no nystagmus is noted. Facial sensation is normal to touch throughout. The facial strength is normal throughout. Hearing is severely decreased bilaterally to hand rub. Tongue is midline and moved [id number] without any difficulty. No dysarthria is noted. Shoulder shrug is antigravity bilaterally. Motor: Gait is deferred because of her pain. The strength is moving all extremities above gravity without focality (could not assess individual muscles because of her generalized pain). Normal tone and bulk. No spontaneous movement. Cerebellum: Normal finger to nose bilaterally. Sensation: Sensation is normal to touch throughout. Reflexes (right/left): Could not assess because of her pain. Plantars are downgoing bilaterally. Results - Laboratory Findings CBC and BMP: 09/18/21 11:03 09/18/21 11:03 Abnormal Lab Findings: Abnormal Labs 09/18/21 09/18/21 09/18/21 11:03 11:03 11:40 VBG HCO3 22 L Carbon Dioxide 20 L Creatinine 1.08 H Ur Specific [place] 1.040 H Urine Protein 1+ H Urine Ketones 1+ H Urine Blood Large H Urine RBC 138 H Urine Mucus Rare H Assessment and Plan Assessment: Altered mental status seems due to hypertensive encephalopathy. Rule out any other etiologies (such as stroke since having word difficulty or other intracranial process).--per mentation is improving compared to earlier. Uncontrolled hypertension Polypharmacy Very hard of hearing History of hyperlipidemia Iron deficiency anemia Chronic back pain History of fibromyalgia History of hypothyroidism Plan: I ordered a routine EEG. I'll not start the patient on antiepileptic drug unless there is epileptiform discharges or seizure on the EEG. Ordered MRI Brain w/ and w/o. Ordered TSH, vitamin B12, folate level. Recommend the controlling the blood pressure and avoid the more than 50% drop within 24 hours to avoid any strokes. We'll defer the management to the primary team. Continue neuro checks We'll defer the rest of the medical management to primary team. I highly recommend for the patient to have her medication modified especially since she is on numerous medication and that's to be addressed as an outpatient by her primary attending The plan is discussed with the patient and her family members ( and her sister) who are at bedside. Thank you for the consultation. Robel Cruz M.D. Neuro-hospitalist Time with Patient: Greater than 30
[2021-09-18] MEDS: METOPROLOL TARTRATE 25 MG TAB PO SCH ×2 (17:30→22:29)
[2021-09-18] MEDS: CLOPIDOGREL 75 MG TAB PO SCH (17:30)
[2021-09-18] MEDS: amLODIPine 5 MG TAB PO SCH (17:30)
[2021-09-18] MEDS: SODIUM CHLORIDE 0.9% 1,000 ML IV SCH ×2 (21:49→23:50)
[2021-09-18] MEDS: GABAPENTIN 300 MG CAP PO SCH (22:29)
[2021-09-18] MEDS: NORTRIPTYLINE 25 MG CAP PO SCH (22:29)
[2021-09-18] MEDS: MELATONIN 5 MG TABLET PO SCH (22:29)
[2021-09-18] MEDS: ATORVASTATIN 40 MG TAB PO SCH (22:30)
[2021-09-18] MEDS: MONTELUKAST 10 MG TAB PO SCH (22:30)
[2021-09-19] MEDS: HYDROcodone/APAP 7.5-325MG 1 EACH TAB PO PRN ×3 (03:49→20:52)
[2021-09-19] MEDS: LEVOTHYROXINE 100 MCG TAB PO SCH (06:32)
[2021-09-19] MEDS ORDERED: PANTOPRAZOLE 40 MG/10 ML VIAL IVP SCH (09:15)
[2021-09-19] MEDS: DULoxetine HCL 60 MG CAPSULE.DR PO SCH (10:28)
[2021-09-19] MEDS: METOPROLOL TARTRATE 25 MG TAB PO SCH ×2 (10:28→21:32)
[2021-09-19] MEDS: amLODIPine 5 MG TAB PO SCH (10:28)
[2021-09-19] MEDS: ASPIRIN 325 MG TAB PO SCH (10:29)
[2021-09-19] MEDS: CLOPIDOGREL 75 MG TAB PO SCH (10:29)
[2021-09-19] MEDS: GABAPENTIN 300 MG CAP PO SCH ×3 (10:30→21:38)
[2021-09-19] MEDS: SODIUM CHLORIDE 0.9% 1,000 ML IV SCH ×2 (10:30→18:11)
--- NOTE | 2021-09-19 10:54 | P.PN ---
Subjective Progress Note Date: 09/19/21 The patient is seen at bedside and feels she is doing better today compared to yesterday. She continues to have generalized pain throughout. Objective - Vital Signs Vital signs: Vital Signs Temp 98.1 F 09/19/21 06:09 Pulse 85 09/19/21 06:09 Resp 20 09/19/21 06:09 BP 132/85 09/19/21 06:09 Pulse Ox 97 09/19/21 06:09 Intake & Output 09/18/21 09/19/21 09/19/21 18:59 06:59 18:59 Intake Total 620 Output Total 600 Balance 20 Weight 81.647 kg 97.9 kg Intake: Intake, IV Titration 500 Amount Sodium Chloride 0.9% 1, 500 000 ml @ 100 mls/hr IV . Q10H MCKENNA Rx#:[id number] Oral 120 Output: Urine 600 Other: # Voids 1 - Exam GENERAL: The patient is lying in bed and is mild to moderate in acute distress. NEUROLOGICAL: Limited because of he rcooperation. Higher mental function: The patient is awake, alert, oriented to self and place. She stated the year is 2020 and did not know the moth (which is her baseline). She is able to name objects correctly (pen, glasses and watch). At time she had slight delay in response. Patient is following simple commands. No aphasia on today's exam (better than yesterday). No neglect. Cranial nerves: The pupils are round, equal and reactive to light and accommodation. Visual [place] are full to confrontation throughout. Extraocular movement is intact no nystagmus is noted. Facial sensation is normal to touch throughout. The facial strength is normal throughout. Hearing is severely decreased bilaterally to hand rub. Tongue is midline and moved [id number] without any difficulty. No dysarthria is noted. Shoulder shrug is antigravity bilaterally. Motor: Gait is deferred because of her pain. The strength is moving all ext remities above gravity without focality (could not assess individual muscles because of her generalized pain). Normal tone and bulk. No spontaneous movement. Cerebellum: Normal finger to nose bilaterally. Sensation: Sensation is normal to touch throughout. Reflexes (right/left): Could not assess because of her pain. Plantars are downgoing bilaterally. WORK-UP: TSH is 3.520 which is within normal limits AST of 20 and ALT of 10. [address] of the head is reported as age-related atrophy. Chronic small vessel ischemic change without acute intracranial process seen this time. CT angiography of the head and neck is negative - Labs CBC & Chem 7: 09/18/21 11:03 09/18/21 11:03 Labs: Abnormal Lab Results - Last 24 Hours (Table) 09/18/21 09/18/21 09/18/21 Range/Units 11:03 11:03 11:40 VBG HCO3 22 L (24-28) mmol/L Carbon Dioxide 20 L (22-30) mmol/L Creatinine 1.08 H (0.52-1.04) mg/dL Ur Specific [place] 1.040 H (1.001-1.035) Urine Protein 1+ H (Negative) Urine Ketones 1+ H (Negative) Urine Blood Large H (Negative) Urine RBC 138 H (0-5) /hpf Urine Mucus Rare H (None) /hpf Assessment and Plan Assessment: Altered mental status seems due to hypertensive encephalopathy. Rule out any other etiologies (such as stroke since having word difficulty or other intracran ial process but seems better today).--per mentation is improving compared to earlier. Uncontrolled hypertension Polypharmacy Very hard of hearing History of hyperlipidemia Iron deficiency anemia Chronic back pain History of fibromyalgia History of hypothyroidism Plan: Pending routine EEG. I'll not start the patient on antiepileptic drug unless there is epileptiform discharges or seizure on the EEG. Pending MRI Brain w/ and w/o. Pending vitamin B12, folate level. Recommend the controlling the blood pressure . We'll defer the management to the primary team. Continue neuro checks We'll defer the rest of the medical management to primary team. I feel the patient is on polypharmacy and highly recommend for the patient to have her medication modified especially since she is on numerous medication and that's to be addressed as an outpatient by her primary attending. The plan is discussed with the patient and her nurse. Robel Cruz M.D. Neuro-hospitalist Time with Patient: Less than 30
[2021-09-19 13:06] LABS: Chol/HDL Ratio 3.29 Ratio; Folate, Serum 11.5 ng/mL (4.40-31.00); HDL Cholesterol 54.4 mg/dL (40.00-60.00); LDL Cholesterol,Calculated 106.7 mg/dL (0.0-131.0); Triglycerides 89.5 mg/dL (0.00-149.00); VLDL Calculation 17.9 mg/dL (5.00-40.00)
--- NOTE | 2021-09-19 16:00 | EEG ---
ELECTROENCEPHALOGRAM REPORT DATE OF SERVICE: 09/19/2021. CLINICAL HISTORY: This is a 80-year-old woman with altered mental status. The video EEG is obtained to evaluate for seizure epileptiform activity. RELEVANT MEDICATION: The patient is not on any antiepileptic drugs. EEG TYPE: Routine 21 channel EEG is performed with video using the 10/20 electrode placement system. DESCRIPTION: Wakefulness is obtained. During wakefulness the background consists of low to moderate voltage of 5-6 hertz activity that is nonrhythmic. Occasionally the background consists of diffuse nonrhythmic delta activity. There is no physiological sleep architecture seen. There is no focal slowing. Interictal and ictal is none. ACTIVATION PROCEDURE: Photic stimulation did not evoke a posterior driving response. There is no abnormality during the photic stimulation. Hyperventilation is not performed. CLINICAL INTERPRETATION: This is an abnormal routine EEG. The background slowing is suggestive of moderate to severe encephalopathy. There are no focal slowing, epileptiform discharge or seizure on the EEG. Clinical correlation is recommended. DA / CONTRERASN: [id number] / JORGE
--- NOTE | 2021-09-19 16:16 | MR ---
EXAMINATION TYPE: MR brain wo/w con DATE OF EXAM: 09/19/2021 COMPARISON: HISTORY: Stroke, word finding difficulty, rule out mass TECHNIQUE: Multiplanar, multisequence images of the brain and brainstem is performed without and with IV contras t, utilizing 10 mL intravenous Gadavist . FINDINGS: Diffusion weighted images demonstrate no evidence of a recent infarct or other diffusion ab normality. There is no extra-axial fluid collection. There is hyperintensity seen within the right m iddle cerebellar peduncle on inversion recovery T2-weighted sequences, uptake is seen at this level o n diffusion weighted images likely represents T2 shine through, no corresponding low signal on the AD C map. There are additional hyperintensities within the periventricular, subcortical, pericallosal wh ite matter similar to prior exam. The ventricular system and cisternal spaces are normal in size and appearance. The brain volume is age appropriate. Midline structures demonstrate normal morphology. The craniocervical junction appears within normal limits. Post contrast images demonstrate no abnormal enhancement although there is extensive artifac t on postcontrast images. The dural venous sinuses appear patent. The visualized sinuses are clear an d the globes are intact. IMPRESSION: Age-related changes and chronic small vessel ischemia are favored.
[2021-09-19] MEDS: ATORVASTATIN 40 MG TAB PO SCH (21:32)
[2021-09-19] MEDS: MONTELUKAST 10 MG TAB PO SCH (21:32)
[2021-09-19] MEDS: NORTRIPTYLINE 25 MG CAP PO SCH (21:32)
[2021-09-19] MEDS: MELATONIN 5 MG TABLET PO SCH (21:33)
--- NOTE | 2021-09-19 23:13 | P.HPIM ---
History of Present Illness H&P Date: 09/19/21 Chief Complaint: AMS Concha Sahni is a 80 yo F with PMH HTN, HLD, fibromyalgia, migraine who presented to the ED with acute change in awareness. Per her she woke up yesterday confused, walking back and forth through her bedroom and repeating words. She was unable to answer questions appropriately and could not provide a history on inital exam. On presentation BP 190/130, labs unremarkable, CT head no acute process. She is evaluated today and has returned to her usual state and denies any tingling, numbness, weakness. Review of Systems All systems: negative Constitutional: Reports weakness, Denies chills, Denies fever Eyes: denies blurred vision, denies pain Ears, nose, mouth and throat: Denies headache, Denies sore throat Cardiovascular: Denies chest pain, Denies shortness of breath Respiratory: Denies cough Gastrointestinal: Denies abdominal pain, Denies diarrhea, Denies nausea, Denies vomiting Genitourinary: Denies dysuria, Denies hematuria Musculoskeletal: Denies myalgias Integumentary: Denies pruritus, Denies rash Neurological: Reports change in mentation, Denies numbness, Denies weakness Psychiatric: Denies anxiety, Denies depression Endocrine: Denies fatigue, Denies weight change Past Medical History Past Medical History: Asthma, Fibromyalgia, GERD/Reflux, Hearing Disorder / Deafness, Hyperlipidemia, Hypertension, Pneumonia, Renal Disease, Skin Disorder, Thyroid Disorder Additional Past Medical History / Comment(s): ANEMIA (HX OF IRON INFUSIONS),CHRONIC BACK PAIN DDD, BACK INJ,MIGRAINE HEADACHES, STATES "LITTLE SORES" ON HER FACE AT SCALP LINE., POINT LAY [place] (DOES NOT WEAR HER HEARING AIDS),past BLEEDING HEMORRHOIDS (had sx).SINUS,"TOLD ONE KIDNEY SMALLER THAN OTHER AND ONE KIDNEY HAS A CYST ON IT.DIVERTICULOSIS. History of Any Multi-Drug Resistant Organisms: None Reported Past Surgical History: Appendectomy, Heart Catheterization, Hysterectomy, Joint Replacement, Tonsillectomy Additional Past Surgical History / Comment(s): rt knee replacement, madonna catar act.COLONOSCOPY, HEMORRHOIDECTOMY. Past Anesthesia/Blood Transfusion Reactions: Motion Sickness Past Psychological History: No Psychological Hx Reported Smoking Status: Former smoker Past Alcohol Use History: None Reported Additional Past Alcohol Use History / Comment(s): STARTED SMOKING 1960, SMOKED 1ppd, quit 1973. Past Drug Use History: None Reported - Past Family History Mother Family Medical History: No Reported History Father Family Medical History: Cancer Additional Family Medical History / Comment(s): lung cancer Medications and Allergies Home Medications Medication Instructions Recorded Confirmed Type DULoxetine HCL [Cymbalta] 60 mg PO DAILY 02/04/17 09/19/21 History Ferrous Sulfate [Iron (65 MG 325 mg PO DAILY 02/04/17 09/19/21 History Elemental)] Fluticasone/Salmeterol [Advair 2 puff INHALATION RT-BID 02/04/17 09/19/21 History 500-50 Diskus] Melatonin 5 mg PO HS 02/04/17 09/19/21 History Multivitamins, Thera [Multivitamin 1 tab PO DAILY 02/04/17 09/19/21 History (formulary)] Thyroid,Pork [[place] Thyroid] 90 mg PO DAILY 02/04/17 09/19/21 History Calcium Carbonate/Vitamin D3 1 tab PO BID 03/21/17 09/19/21 History [Calcium 600-Vit D3 400 Caplet] Celecoxib [CeleBREX] 200 mg PO DAILY 01/06/18 09/19/21 History Magnesium Oxide [Mag-Ox] 250 mg PO DAILY 01/06/18 09/19/21 History nadoloL [Corgard] 20 mg PO DAILY 01/06/18 09/19/21 History Galcanezumab-Gnlm [Emgality 120 mg SQ QMONTHLY 09/18/21 09/19/21 History Syringe] Hydrocodone/Acetaminophen [[place] 1 tab PO Q6HR PRN 09/18/21 09/19/21 History 7.5-325] Levothyroxine Sodium 100 mcg PO DAILY 09/18/21 09/19/21 History Montelukast [Singulair] 10 mg PO HS 09/18/21 09/19/21 History Nortriptyline [Pamelor] 25 mg PO HS 09/18/21 09/19/21 History amLODIPine [Norvasc] 2.5 mg PO DAILY 09/18/21 09/19/21 History diphenhydrAMINE [Benadryl] 150 mg PO HS 09/18/21 09/19/21 History Allergies Allergy/AdvReac Type Severity Reaction Status Date / Time peanut Allergy Anaphylaxis Verified 01/06/18 13:17 Physical Exam Vitals: Vital Signs Temp Pulse Pulse Pulse Resp BP BP 09/19/21 20:00 97.5 F L 75 18 129/60 09/19/21 16:00 97.3 F L 70 16 131/60 09/19/21 15:37 98 F 71 16 141/84 09/19/21 11:30 97.5 F L 73 16 142/81 09/19/21 11:26 09/19/21 08:21 98 F 83 16 139/77 09/19/21 06:09 98.1 F 85 20 132/85 09/19/21 04:09 98.0 F 83 19 148/83 09/19/21 04:00 98.0 F 83 19 148/83 09/19/21 02:09 98.2 F 79 19 160/79 09/19/21 02:00 81 20 09/19/21 00:09 98.1 F 81 20 161/84 09/18/21 23:15 98.1 F 81 20 Pulse Ox 09/19/21 20:00 94 L 09/19/21 16:00 96 09/19/21 15:37 94 L 09/19/21 11:30 96 09/19/21 11:26 95 09/19/21 08:21 97 09/19/21 06:09 97 09/19/21 04:09 99 09/19/21 04:00 99 09/19/21 02:09 97 09/19/21 02:00 09/19/21 00:09 98 09/18/21 23:15 98 Intake and Output 09/19/21 09/19/21 09/20/21 14:59 22:59 06:59 Intake Total 180 180 Output Total 100 Balance 180 80 Intake: Oral 180 180 Output: Urine 100 Other: # Voids 2 General: well nourished, well developed, NAD. Vitals reviewed Eyes: PERRL, EOMI, conjunctiva normal HENT: normocephalic, mucus membranes moist Neck: supple, no JVD Lungs: normal respiratory effort, no wheezes or rales CV: Regular rate and rhythm, no murmur. Peripheral pulses 2+ Abdomen: soft, nondistended, no organomegaly Lymph: no cervical or axillary LAD Skin: warm and dry. Neuro: A&Ox3, normal mood and affect Results CBC & Chem 7: 09/18/21 11:03 09/18/21 11:03 Thrombosis Risk Factor Assmnt - Choose All That Apply Each Factor Represents 1 point: Obesity (BMI >25) Each Risk Factor Represents 3 Points: Age 75 years or older Thrombosis Risk Factor Assessment Total Risk Factor Score: 4 Thrombosis Risk Factor Assessment Level: Moderate Risk Assessment and Plan Plan: 1. Acute encephalopathy secondary to hypertensive urgency. Consult neuro for further evaluation, rule out CVA/ TIA. MRI ordered. Start ASA and lipitor 2. Hypertensive urgency. Increase norvasc to 10 mg, start metoprolol 3. Chronic migraine. continue with nortriptyline 4. Hypothyroidism. Continue synthroid, hold armour thyroid
[2021-09-20] MEDS: HYDROcodone/APAP 7.5-325MG 1 EACH TAB PO PRN (06:55)
[2021-09-20] MEDS: LEVOTHYROXINE 100 MCG TAB PO SCH (06:56)
[2021-09-20] MEDS: SODIUM CHLORIDE 0.9% 1,000 ML IV SCH (06:56)
[2021-09-20] MEDS ORDERED: PANTOPRAZOLE 40 MG TABLET PO SCH (07:30)
[2021-09-20 08:34] VITALS: RESP 18; TEMP 98.5
[2021-09-20] MEDS: METOPROLOL TARTRATE 25 MG TAB PO SCH (08:38)
[2021-09-20] MEDS: ASPIRIN 325 MG TAB PO SCH (08:38)
[2021-09-20] MEDS: CLOPIDOGREL 75 MG TAB PO SCH (08:38)
[2021-09-20] MEDS: amLODIPine 5 MG TAB PO SCH (08:38)
[2021-09-20] MEDS: GABAPENTIN 300 MG CAP PO SCH ×2 (08:39→08:45)
[2021-09-20] MEDS: DULoxetine HCL 60 MG CAPSULE.DR PO SCH (08:39)
--- NOTE | 2021-09-20 10:47 | P.DS ---
Providers Date of admission: 09/18/21 13:08 Expected date of discharge: 09/20/21 Attending physician: Chandan Long MD Consults: 09/18/21 13:08 Consult Physician Routine Consulting Provider: Robel Cruz Consult Reason/Comments: AMS Do you want consulting provider notified?: Yes Primary care physician: Ariane Daniel [facility] Course: Final Diagnoses: Acute hypertensive encephalopathy Hypertensive urgency Chronic migraines Hypothyroidism Hospital course:Concha Sahni is a 80 yo F with PMH HTN, HLD, fibromyalgia, migraine who presented to the ED with acute change in awareness. Per her she woke up yesterday confused, walking back and forth through her bedroom and repeating words. She was unable to answer questions appropriately and could not provide a history on inital exam. On presentation BP 190/130, labs unremarkable, CT head no acute process. She is evaluated today and has returned to her usual state and denies any tingling, numbness, weakness. Evaluated by neurology with neuro workup completed. Brain MRI reported age related changes, chronic small vessel ischemia. Significant clinical improvement. Denies dizziness lightheadedness or focal deficits. Currently denies headache. Denies chest pain, palpitations or shortness of breath. Blood pressure controlled. Polypharmacy, multiple medication changes with new prescriptions initiated at discharge. Patient to also to discuss in clinic a better migraine medication. Patient will be discharged home today in stable condition with guarded prognosis pending final DC recommendations and clearance from neurology. The impression and plan of care has been dictated as directed. : I performed a history and examination of this patient, discussed the same with the dictator. I agree with the dictator's note ,documented as a scribe. Any additional findings or plans will be noted. Patient Condition at Discharge: Stable Plan - Discharge Summary Discharge Rx Participant: No New Discharge Prescriptions: New Atorvastatin [Lipitor] 40 mg PO HS #30 tab amLODIPine [Norvasc] 10 mg PO DAILY #60 tab Aspirin EC [Ecotrin Low Dose] 81 mg PO DAILY #30 tab Metoprolol Tartrate [Lopressor] 25 mg PO BID #60 tab Clopidogrel [Plavix] 75 mg PO DAILY #30 tab Pantoprazole [Protonix] 40 mg PO AC-BRKFST #30 tab Continue Fluticasone/Salmeterol [Advair 500-50 Diskus] 2 puff INHALATION RT-BID Ferrous Sulfate [Iron (65 MG Elemental)] 325 mg PO DAILY Multivitamins, Thera [Multivitamin (formulary)] 1 tab PO DAILY Melatonin 5 mg PO HS DULoxetine HCL [Cymbalta] 60 mg PO DAILY Calcium Carbonate/Vitamin D3 [Calcium 600-Vit D3 400 Caplet] 1 tab PO BID Magnesium Oxide [Mag-Ox] 250 mg PO DAILY Levothyroxine Sodium 100 mcg PO DAILY Hydrocodone/Acetaminophen [[place] 7.5-325] 1 tab PO Q6HR PRN PRN Reason: Pain Montelukast [Singulair] 10 mg PO HS Nortriptyline [Pamelor] 25 mg PO HS Discontinued Thyroid,Pork [[place] Thyroid] 90 mg PO DAILY nadoloL [Corgard] 20 mg PO DAILY Celecoxib [CeleBREX] 200 mg PO DAILY diphenhydrAMINE [Benadryl] 150 mg PO HS amLODIPine [Norvasc] 2.5 mg PO DAILY Galcanezumab-Gnlm [Emgality Syringe] 120 mg SQ QMONTHLY Discharge Medication List DULoxetine HCL [Cymbalta] 60 mg PO DAILY 02/04/17 [History] Ferrous Sulfate [Iron (65 MG Elemental)] 325 mg PO DAILY 02/04/17 [History] Fluticasone/Salmeterol [Advair 500-50 Diskus] 2 puff INHALATION RT-BID 02/04/17 [History] Melatonin 5 mg PO HS 02/04/17 [History] Multivitamins, Thera [Multivitamin (formulary)] 1 tab PO DAILY 02/04/17 [History] Calcium Carbonate/Vitamin D3 [Calcium 600-Vit D3 400 Caplet] 1 tab PO BID 03/21/17 [History] Magnesium Oxide [Mag-Ox] 250 mg PO DAILY 01/06/18 [History] Hydrocodone/Acetaminophen [[place] 7.5-325] 1 tab PO Q6HR PRN 09/18/21 [History] Levothyroxine Sodium 100 mcg PO DAILY 09/18/21 [History] Montelukast [Singulair] 10 mg PO HS 09/18/21 [History] Nortriptyline [Pamelor] 25 mg PO HS 09/18/21 [History] Aspirin EC [Ecotrin Low Dose] 81 mg PO DAILY #30 tab 09/20/21 [Rx] Atorvastatin [Lipitor] 40 mg PO HS #30 tab 09/20/21 [Rx] Clopidogrel [Plavix] 75 mg PO DAILY #30 tab 09/20/21 [Rx] Metoprolol Tartrate [Lopressor] 25 mg PO BID #60 tab 09/20/21 [Rx] Pantoprazole [Protonix] 40 mg PO AC-BRKFST #30 tab 09/20/21 [Rx] amLODIPine [Norvasc] 10 mg PO DAILY #60 tab 09/20/21 [Rx] Follow up Appointment(s)/Referral(s): Chandan Long MD [STAFF PHYSICIAN] - 3 Days Activity/Diet/Wound Care/Special Instructions: [facility] - [phone] In clinic with follow-up with PCP, discuss better migraine medication.
[2021-09-20 11:54] VITALS: BP 125/78; PULSE 70
--- NOTE | 2021-09-20 18:11 | P.PN ---
Subjective Progress Note Date: 09/20/21 The patient is seen at bedside and is about the same. No new neurological deficits. Objective - Vital Signs Vital signs: Vital Signs Temp 98.5 F 09/20/21 08:33 Pulse 70 09/20/21 11:53 Resp 18 09/20/21 11:53 BP 125/78 09/20/21 11:53 Pulse Ox 94 L 09/20/21 11:53 Intake & Output 09/19/21 09/20/21 09/20/21 18:59 06:59 18:59 Intake Total 360 0 Output Total 100 Balance 260 0 Weight 97 kg Intake: Oral 360 0 Output: Urine 100 Other: # Voids 2 1 - Exam GENERAL: The patient is lying in bed and is mild to moderate in acute distress. NEUROLOGICAL: Limited because of he rcooperation. Higher mental function: The patient is awake, alert, oriented to self and place. She stated the year is 2020 and did not know the moth (which is her baseline). She is able to name objects correctly (pen, glasses and watch). At time she had slight delay in response. Patient is following simple commands. No aphasia on today's exam (better than yesterday). No neglect. Cranial nerves: The pupils are round, equal and reactive to light and accommodation. Visual [place] are full to confrontation throughout. Extraocular movement is intact no nystagmus is noted. Facial sensation is normal to touch throughout. The facial strength is normal throughout. Hearing is severely decreased bilaterally to hand rub. Tongue is midline and moved [id number] without any difficulty. No dysarthria is noted. Shoulder shrug is antigravity bilaterally. Motor: Gait is deferred because of her pain. The strength is moving all extremities above gravity without focality (could not assess individual muscles because of her generalized pain). Normal tone and bulk. No spontaneous movement. Cerebellum: Normal finger to nose bilaterally. Sensation: Sensation is normal to touch throughout. Reflexes (right/left): Could not assess because of her pain. Plantars are downgoing bilaterally. WORK-UP: TSH is 3.520 which is within normal limits AST of 20 and ALT of 10. Vitamin B12 is 547 Serum folate level is 11.5 the. Lipid panel is triglycerides of 89, cholesterol 179, LDLs 106 and HDL of 54. CT of the head is reported as age-related atrophy. Chronic small vessel ischemic change without acute intracranial process seen this time. CT angiography of the head and neck is negative MRI the brain is reported as age-related changes and chronic small vessel ischemic is favored. There is hyperintensity seen within the right middle cerebellar peduncle on the verge in recovery T2 weighted sequence uptake seen at the level of diffusion weighted images likely represent T2 shine through not corresponding to ADC map. And the this was discussed with radiology who felt this was not acute stroke or subacute. CT and EEG on 09/19/2021 is abnormal. The back was SUGGESTIVE of moderate to severe encephalopathy. There are no focal slowing, epileptiform discharges or seizure on the EEG. - Labs CBC & Chem 7: 09/18/21 11:03 09/18/21 11:03 Assessment and Plan Assessment: Altered mental status seems due to hypertensive encephalopathy. --per mentation is improved Uncontrolled hypertension on presentation--better controlled Polypharmacy Very hard of hearing History of hyperlipidemia Iron deficiency anemia Chronic back pain History of fibromyalgia History of hypothyroidism Plan: Patient is on her home medication of aspirin 81mg, Plavix 75mg and Lipitor 40 mg daily at bedtime. Continue neuro checks We'll defer the rest of the medical management to primary team. I feel the patient is on polypharmacy and highly recommend for the patient to have her medication modified especially since she is on numerous medication and that's to be addressed as an outpatient by her primary attending. The plan is discussed with the patient's who is at bedside. There is no further neurological work-up. Robel Cruz M.D. Neuro-hospitalist Time with Patient: Less than 30
== END 2021-09-20 13:06 | disposition home or self-care (01) | DRG 78 ==
LOC: EC 10:48 → 3SCARD 13:08
PROVIDERS: ADMIT Family Medicine; ATTEND Family Medicine
DX: I67.4 Hypertensive encephalopathy (principal); N39.0 Urinary tract infection, site not specified; E03.9 Hypothyroidism, unspecified; G31.89 Other specified degenerative diseases of nervous system; Z79.890 Hormone replacement therapy; Z20.822 Contact with and (suspected) exposure to COVID-19; K57.90 Diverticulosis of intestine, part unspecified, without perforation or abscess without bleeding; D50.9 Iron deficiency anemia, unspecified; I10 Essential (primary) hypertension; I16.0 Hypertensive urgency; E78.5 Hyperlipidemia, unspecified; N28.1 Cyst of kidney, acquired; N27.0 Small kidney, unilateral; G43.909 Migraine, unspecified, not intractable, without status migrainosus; G89.29 Other chronic pain; H91.90 Unspecified hearing loss, unspecified ear; J45.909 Unspecified asthma, uncomplicated; M79.7 Fibromyalgia; Z79.1 Long term (current) use of non-steroidal anti-inflammatories (NSAID); Z87.891 Personal history of nicotine dependence; Z90.710 Acquired absence of both cervix and uterus; Z96.651 Presence of right artificial knee joint; Z98.42 Cataract extraction status, left eye; Z98.41 Cataract extraction status, right eye; Z87.19 Personal history of other diseases of the digestive system; Z91.018 Allergy to other foods
CPT/HCPCS: 36415; 70450; 70496; 70498; 70553; 71046; 80053; 80061; 81001; 82607; 82746; 82803; 83605; 83735; 84443; 84484; 85025; 85610; 85730; 87635; 93005; 94760; 95816; 96360; 99285

== ENCOUNTER 2021-12-12 16:08 | Inpatient (IN) | payer MEDICARE ==
[2021-12-12 16:36] LABS: Basophils # (A) 0.1 k/uL (0-0.2); Basophils % (A) 1 %; Eosinophils # (A) 0.1 k/uL (0-0.7); Eosinophils % (A) 1 %; HCT 26.5 % (34.0-46.0); HGB 8.6 gm/dL (11.4-16.0); Hypochromasia Slight; Lymphocytes # (A) 1.4 k/uL (1.0-4.8); Lymphocytes % (A) 14 %; MCH 30.8 pg (25.0-35.0); MCHC 32.5 g/dL (31.0-37.0); MCV 94.8 fL (80.0-100.0); Mean Platelet Volume 7.6; Monocytes # (A) 0.7 k/uL (0-1.0); Monocytes % (A) 6 %; Neutrophils # (A) 8.1 k/uL (1.3-7.7); Neutrophils % (A) 77 %; Platelet Count 330 k/uL (150-450); RDW 14.2 % (11.5-15.5); WBC 10.5 k/uL (3.8-10.6)
[2021-12-12] MEDS ORDERED: SODIUM CHLORIDE 0.9% 1,000 ML IV STA (16:36)
[2021-12-12] MEDS ORDERED: PANTOPRAZOLE 40 MG/10 ML VIAL IVP ONE (16:36)
[2021-12-12 16:46] LABS: Albumin 3.2 g/dL (3.5-5.0); Calcium 8.8 mg/dL (8.4-10.2); Total Bilirubin 0.5 mg/dL (0.2-1.3)
[2021-12-12] MEDS ORDERED: cefTRIAXone IN SWFI 1,000 MG/10 ML SYRINGE IVP STA (16:57)
[2021-12-12 16:58] LABS: INR 1.1 (<1.2)
[2021-12-12 16:59] LABS: Prothrombin Time 11.4 sec (9.0-12.0)
[2021-12-12 17:01] LABS: Partial Thromboplastin Time 19.9 sec (22.0-30.0)
--- NOTE | 2021-12-12 17:23 | XR ---
EXAMINATION TYPE: XR chest 1V portable DATE OF EXAM: 12/12/2021 COMPARISON: 09/18/2021 HISTORY: Syncope TECHNIQUE: FINDINGS: There is some mild linear density left lung base. There is no heart failure. Heart size is normal. There is no heart failure. IMPRESSION: Mild subsegmental atelectasis left lung base. Normal heart.
--- NOTE | 2021-12-12 17:26 | CT ---
EXAMINATION TYPE: CT brain wo con DATE OF EXAM: 12/12/2021 COMPARISON: 09/18/2021 HISTORY: Syncope CT DLP: 1056.4 mGycm Automated exposure control for dose reduction was used. There is cerebral cortical atrophy. There is no mass effect or midline shift. There is no evidence of intracranial hemorrhage. The calvarium is intact. Skull base is intact. There is normal aeration of the mastoid sinuses. IMPRESSION: Cerebral atrophy. No acute intracranial abnormality. No change.
--- NOTE | 2021-12-12 17:42 | CT ---
EXAMINATION TYPE: CT abdomen pelvis wo/w con DATE OF EXAM: 12/12/2021 COMPARISON: None HISTORY: Hypertension, Abdominal pain-GI bleed protocol CT DLP: 2772.1 mGycm Automated exposure control for dose reduction was used. CONTRAST: Performed without and with IV Contrast, patient injected with 80 mL of Isovue 300. Images obtained from the diaphragm to the floor the pelvis without and with IV contrast. There is bobby e pre-existing contrast material in the large bowel. There is some mild atelectasis at the lung bases. Heart size is normal. There is no pericardial effus ion. Liver spleen pancreas appear intact. The bile ducts are not dilated. There is dilated fluid-filled stomach. Gallbladder appears absent. There is oral contrast in the stomach and in the descending colon and rectosigmoid colon. There is no adrenal mass. Kidneys show satisfactory contrast opacification. There is mild cortical at rophy. There is no hydronephrosis. Ureters are not dilated. There is no retroperitoneal adenopathy. B ladder distends smoothly. There is no inguinal hernia. There is no free fluid in the pelvis. There is no ascites. There is no free air. There is no evidence of bowel obstruction. There is a first-degree L4-5 spondylolisthesis. There is no lumbar compression fracture. Bony pelvis is intact. The hip joints are intact. There is mild narrowing of joint spaces. There are renal parape lvic cysts. There is arterial flow in the abdominal aorta and the superior mesenteric artery and the celiac arter y. There is arterial flow in both renal arteries. There is normal contrast opacification of the iliac and femoral arteries. No evidence of arterial aneurysm or dissection. No evidence of contrast extrav asation. IMPRESSION: Dilated stomach that could relate to some gastroparesis. No evidence of contrast extravasation to suggest active GI bleeding. Pre-existing contrast material i n the large bowel limits the exam. Renal atrophy. Mild subsegmental atelectasis at the lung bases.
[2021-12-12] MEDS ORDERED: NALOXONE 0.4 MG/ML 1 ML VIAL IV PRN (17:43)
[2021-12-12] MEDS ORDERED: MORPHINE SULFATE 4 MG/ML SYRINGE IV PRN (17:43)
[2021-12-12] MEDS ORDERED: ONDANSETRON 4 MG/2 ML VIAL IVP PRN (17:43)
[2021-12-12] MEDS ORDERED: SODIUM CHLORIDE 0.9% 1,000 ML IV SCH (17:45)
[2021-12-12] MEDS ORDERED: ONDANSETRON 4 MG/2 ML VIAL IVP STA (18:11)
--- NOTE | 2021-12-12 18:29 | ED ---
General Adult HPI - General Chief complaint: Weakness Stated complaint: HYPERTENSION Time Seen by Provider: 12/12/21 16:26 Source: patient, RN notes reviewed, old records reviewed Mode of arrival: ambulatory Limitations: no limitations - History of Present Illness Initial comments: Patient is a 81-year-old female who presents emergency Department following a syncopal episode. Patient also 2 episodes of dark coffee-ground emesis at home. This has never happened before. Over the last day she has felt somewhat weaker, and she has abdominal discomfort in epigastric region. Denies any chest pain, shortness of breath. Does not recall the episode earlier of passing out. Her , he slowly lowered her to the ground. They called EMS and she was brought to the emergency department for evaluation. She is not on blood thinners but she has been taking aspirin arthritis more frequently for joint pain. Denies NSAID use. No history of GI bleeds. They're concerned for possible hypertension which is why they initially called EMS, however her blood pressures have been normal. Presents for possible GI bleed and syncopal episode. - Related Data Home Medications Medication Instructions Recorded Confirmed DULoxetine HCL [Cymbalta] 60 mg PO DAILY 02/04/17 12/12/21 Ferrous Sulfate [Iron (65 MG 325 mg PO DAILY 02/04/17 12/12/21 Elemental)] Fluticasone/Salmeterol [Advair 1 puff INHALATION RT-BID 02/04/17 12/12/21 500-50 Diskus] Melatonin 5 mg PO HS 02/04/17 12/12/21 Multivitamins, Thera [Multivitamin 1 tab PO DAILY 02/04/17 12/12/21 (formulary)] Calcium Carbonate/Vitamin D3 1 tab PO BID 03/21/17 12/12/21 [Calcium 600-Vit D3 400 Caplet] Magnesium Oxide [Mag-Ox] 250 mg PO DAILY 01/06/18 12/12/21 Hydrocodone/Acetaminophen [Lerona 1 tab PO Q6HR PRN 09/18/21 12/12/21 7.5-325] Levothyroxine Sodium 100 mcg PO DAILY 09/18/21 12/12/21 Montelukast [Singulair] 10 mg PO DAILY 09/18/21 12/12/21 Nortriptyline [Pamelor] 25 mg PO HS 09/18/21 12/12/21 Aspirin EC [Ecotrin Low Dose] 81 mg PO DAILY 12/12/21 12/12/21 Danielle Back And Body 500-32.5mg 2 tab PO Q6H PRN 12/12/21 12/12/21 Galcanezumab-Gnlm [Emgality 120 mg SQ QMONTHLY 12/12/21 12/12/21 Syringe] diphenhydrAMINE [Benadryl] 150 mg PO HS PRN 12/12/21 12/12/21 Previous Rx's Medication Instructions Recorded Atorvastatin [Lipitor] 40 mg PO HS #30 tab 09/20/21 Clopidogrel [Plavix] 75 mg PO DAILY #30 tab 09/20/21 Metoprolol Tartrate [Lopressor] 25 mg PO BID #60 tab 09/20/21 Pantoprazole [Protonix] 40 mg PO AC-BRKFST #30 tab 09/20/21 amLODIPine [Norvasc] 10 mg PO DAILY #60 tab 09/20/21 Allergies Allergy/AdvReac Type Severity Reaction Status Date / Time peanut Allergy Anaphylaxis Verified 12/12/21 18:48 Review of Systems ROS Statement: Those systems with pertinent positive or pertinent negative responses have been documented in the HPI. Review of Systems: CONST: Denies fever EYES: Denies blurry vision ENT: Denies nasal congestion C/V: Denies Chest pain RESP: Denies shortness of breath GI: Endorses abdominal discomfort : Denies dysuria SKIN: Denies rash. MSK: Denies joint pain. NEURO: Denies headache ROS Other: All systems not noted in ROS Statement are negative. Past Medical History Past Medical History: Asthma, Fibromyalgia, GERD/Reflux, Hearing Disorder / Deafness, Hyperlipidemia, Hypertension, Pneumonia, Renal Disease, Skin Disorder, Thyroid Disorder Additional Past Medical History / Comment(s): ANEMIA (HX OF IRON INFUSIONS),CHRONIC BACK PAIN DDD, BACK INJ,MIGRAINE HEADACHES, STATES "LITTLE SORES" ON HER FACE AT SCALP LINE., [place] (DOES NOT WEAR HER HEARING AIDS),past BLEEDING HEMORRHOIDS (had sx).SINUS,"TOLD ONE KIDNEY SMALLER THAN OTHER AND ONE KIDNEY HAS A CYST ON IT.DIVERTICULOSIS. History of Any Multi-Drug Resistant Organisms: None Reported Past Surgical History: Appendectomy, Heart Catheterization, Hysterectomy, Joint Replacement, Tonsillectomy Additional Past Surgical History / Comment(s): rt knee replacement, madonna cataract.COLONOSCOPY, HEMORRHOIDECTOMY. Past Anesthesia/Blood Transfusion Reactions: Motion Sickness Past Psychological History: No Psychological Hx Reported Smoking Status: Former smoker Past Alcohol Use History: None Reported Past Drug Use History: None Reported - Past Family History Mother Family Medical History: No Reported History Father Family Medical History: Cancer Additional Family Medical History / Comment(s): lung cancer General Exam - General Exam Comments Initial Comments: General: Appears in mild distress. HEAD: Normal with no signs of head trauma. EYES: PERRLA, EOMI, conjunctiva normal, no discharge. ENT: Hearing grossly intact, normal oropharynx. RESPIRATORY: Clear breath sounds bilaterally. No wheezes, rales, or rhonchi. C/V: Regular rate and rhythm. S1 and S2 auscultated, no edema, peripheral pulses 2+ and intact throughout ABD: Abdomen is soft, not distended. She is tender to palpation epigastric region. No guarding, peritoneal signs, rebound tenderness. EXT: Normal range of motion, no obvious deformity SKIN: No rashes or lesions observed on exposed skin. NEURO: Alert and oriented 4. No focal deficits at this time. Limitations: no limitations Course Vital Signs 12/12/21 12/12/21 12/12/21 16:09 16:30 16:54 Temperature Pulse Rate 96 90 95 Respiratory 20 20 18 Rate Blood Pressure 121/59 110/69 114/56 O2 Sat by Pulse 95 98 95 Oximetry 12/12/21 12/12/21 12/12/21 19:20 19:25 19:28 Temperature 97.9 F 97.9 F Pulse Rate 93 92 Respiratory 20 18 Rate Blood Pressure 132/60 137/49 O2 Sat by Pulse 98 99 Oximetry 12/12/21 12/12/21 12/12/21 19:35 19:41 20:05 Temperature 98.0 F 98.0 F Pulse Rate 95 90 89 Respiratory 18 18 18 Rate Blood Pressure 148/79 138/65 137/75 O2 Sat by Pulse 99 100 98 Oximetry Medical Decision Making - Medical Decision Making Based on the patient's presentation and physical exam, there is concern for acute GI bleed as cause of her syncopal episode. Cannot rule out cardiac etiology at this time. Therefore we will obtain a cardiac workup, basic labs, CT brain due to the syncopal episode, as well as CT of the pelvis GI bleed protocol. Patient will be started on IV Protonix, IV Rocephin, and is given a 1 L fluid bolus. Patient is in agreement with this plan. Patient is no history of liver disease and is nonalcoholic and therefore I have low suspicion for variceal bleed. Patient's EKG shows no signs of acute ischemia. Chest x-ray showed no acute cardio pulmonary process. Brain CT showed no acute intracranial abnormality. Abdominal CT GI bleed protocol revealed mildly dilated stomach they could related to gastroparesis. There is no evidence of contrast extravasation suggest active GI bleed. Laboratory studies are remarkable for a normocytic anemia with a hemoglobin of 8.6. Patient is chronically typically greater than 11 over the last 2 years. This does appear to be acute blood loss. Coags are normal. LFTs are within normal limits. Troponin is negative. Lactic acid is mildly elevated to 2.2. Patient is mildly elevated creatinine of 1.23. Covid is negative. At this time I would like to admit the patient for an upper GI bleed. She is no history of liver disease or alcohol abuse, and LFTs are within normal limits. Of low suspicion for cirrhosis and possible variceal bleed at this time. I did discuss this with the neurosurgeon on-call, Dr. Salcedo who accepted the admission. Patient is made nothing by mouth. We'll continue Protonix and Rocephin. We'll continue to monitor patient's hemoglobin as well. Vital signs have remained within normal limits and stable throughout her stay in the emergency room. Patient did have an episode of coffee-ground emesis shortly after admission, which did test positive for gastric occult blood.. Repeat CBC did show hemoglobin is now lower at 7.6. Patient will empirically received 2 units of packed red blood cells. I did discuss the case with the ICU attending, Dr. Scott, who believes that patient is still stable for stepdown admission. Patient remains to have stable within normal limits vital signs. We'll continue to trend patient's hemoglobins. I do nutrition counselor the patient's PCP, Dr. Long for medical management. He was in agreement this plan. Patient was therefore admitted in serious condition. - Lab Data Result diagrams: 12/12/21 18:48 12/12/21 16:18 Lab Results 12/12/21 12/12/21 12/12/21 Range/Units 16:08 16:18 16:18 WBC 10.5 (3.8-10.6) k/uL RBC 2.80 L (3.80-5.40) m/uL Hgb 8.6 L (11.4-16.0) gm/dL Hct 26.5 L (34.0-46.0) % MCV 94.8 (80.0-100.0) fL MCH 30.8 (25.0-35.0) pg MCHC 32.5 (31.0-37.0) g/dL RDW 14.2 (11.5-15.5) % Plt Count 330 (150-450) k/uL MPV 7.6 Neutrophils % 77 % Lymphocytes % 14 % Monocytes % 6 % Eosinophils % 1 % Basophils % 1 % Neutrophils # 8.1 H (1.3-7.7) k/uL Lymphocytes # 1.4 (1.0-4.8) k/uL Monocytes # 0.7 (0-1.0) k/uL Eosinophils # 0.1 (0-0.7) k/uL Basophils # 0.1 (0-0.2) k/uL Hypochromasia Slight PT 11.4 (9.0-12.0) sec INR 1.1 (<1.2) APTT 19.9 L (22.0-30.0) sec Sodium (137-145) mmol/L Potassium (3.5-5.1) mmol/L Chloride (98-107) mmol/L Carbon Dioxide (22-30) mmol/L Anion Gap mmol/L BUN (7-17) mg/dL Creatinine (0.52-1.04) mg/dL Est GFR (CKD-EPI)AfAm (>60 ml/min/1.73 sqM) Est GFR (CKD-EPI)NonAf (>60 ml/min/1.73 sqM) Glucose (74-99) mg/dL Lactic Ac Sepsis Rflx Plasma Lactic Acid Vinayak (0.7-2.0) mmol/L Calcium (8.4-10.2) mg/dL Total Bilirubin (0.2-1.3) mg/dL AST (14-36) U/L ALT (4-34) U/L Alkaline Phosphatase (38-126) U/L Troponin I (0.000-0.034) ng/mL Total Protein (6.3-8.2) g/dL Albumin (3.5-5.0) g/dL Coronavirus (PCR) (Not Detectd) Blood Type Blood Type Confirm O Negative Blood Type Recheck Bld Type Recheck Status Antibody Screen Crossmatch Spec Expiration Date 12/12/21 12/12/21 12/12/21 Range/Units 16:18 16:18 16:18 WBC (3.8-10.6) k/uL RBC (3.80-5.40) m/uL Hgb (11.4-16.0) gm/dL Hct (34.0-46.0) % MCV (80.0-100.0) fL MCH (25.0-35.0) pg MCHC (31.0-37.0) g/dL RDW (11.5-15.5) % Plt Count (150-450) k/uL MPV Neutrophils % % Lymphocytes % % Monocytes % % Eosinophils % % Basophils % % Neutrophils # (1.3-7.7) k/uL Lymphocytes # (1.0-4.8) k/uL Monocytes # (0-1.0) k/uL Eosinophils # (0-0.7) k/uL Basophils # (0-0.2) k/uL Hypochromasia PT (9.0-12.0) sec INR (<1.2) APTT (22.0-30.0) sec Sodium 141 (137-145) mmol/L Potassium 4.0 (3.5-5.1) mmol/L Chloride 108 H (98-107) mmol/L Carbon Dioxide 24 (22-30) mmol/L Anion Gap 9 mmol/L BUN 50 H (7-17) mg/dL Creatinine 1.23 H (0.52-1.04) mg/dL Est GFR (CKD-EPI)AfAm 48 (>60 ml/min/1.73 sqM) Est GFR (CKD-EPI)NonAf 42 (>60 ml/min/1.73 sqM) Glucose 111 H (74-99) mg/dL Lactic Ac Sepsis Rflx Plasma Lactic Acid Vinayak 2.2 H* (0.7-2.0) mmol/L Calcium 8.8 (8.4-10.2) mg/dL Total Bilirubin 0.5 (0.2-1.3) mg/dL AST 14 (14-36) U/L ALT 10 (4-34) U/L Alkaline Phosphatase 57 (38-126) U/L Troponin I <0.012 (0.000-0.034) ng/mL Total Protein 6.0 L (6.3-8.2) g/dL Albumin 3.2 L (3.5-5.0) g/dL Coronavirus (PCR) (Not Detectd) Blood Type Blood Type Confirm Blood Type Recheck Bld Type Recheck Status Antibody Screen Crossmatch Spec Expiration Date 12/12/21 12/12/21 12/12/21 Range/Units 16:19 16:42 16:48 WBC (3.8-10.6) k/uL RBC (3.80-5.40) m/uL Hgb (11.4-16.0) gm/dL Hct (34.0-46.0) % MCV (80.0-100.0) fL MCH (25.0-35.0) pg MCHC (31.0-37.0) g/dL RDW (11.5-15.5) % Plt Count (150-450) k/uL MPV Neutrophils % % Lymphocytes % % Monocytes % % Eosinophils % % Basophils % % Neutrophils # (1.3-7.7) k/uL Lymphocytes # (1.0-4.8) k/uL Monocytes # (0-1.0) k/uL Eosinophils # (0-0.7) k/uL Basophils # (0-0.2) k/uL Hypochromasia PT (9.0-12.0) sec INR (<1.2) APTT (22.0-30.0) sec Sodium (137-145) mmol/L Potassium (3.5-5.1) mmol/L Chloride (98-107) mmol/L Carbon Dioxide (22-30) mmol/L Anion Gap mmol/L BUN (7-17) mg/dL Creatinine (0.52-1.04) mg/dL Est GFR (CKD-EPI)AfAm (>60 ml/min/1.73 sqM) Est GFR (CKD-EPI)NonAf (>60 ml/min/1.73 sqM) Glucose (74-99) mg/dL Lactic Ac Sepsis Rflx Y Plasma Lactic Acid Vinayak (0.7-2.0) mmol/L Calcium (8.4-10.2) mg/dL Total Bilirubin (0.2-1.3) mg/dL AST (14-36) U/L ALT (4-34) U/L Alkaline Phosphatase (38-126) U/L Troponin I (0.000-0.034) ng/mL Total Protein (6.3-8.2) g/dL Albumin (3.5-5.0) g/dL Coronavirus (PCR) Not Detected (Not Detectd) Blood Type O Negative Blood Type Confirm Blood Type Recheck No Previous Record Bld Type Recheck Status CABO Indicated Antibody Screen NEGATIVE Crossmatch See Detail Spec Expiration Date 12/15/20212318 - EKG Data -: EKG Interpreted by Me EKG Comments: 12-lead Electrocardiogram Interpretation Note EKG was reviewed and interpreted by myself. 12-lead ECG performed at 1629 is interpreted by me as revealing sinus tachycardia at a rate of 103 beats per minute. Guy is normal. AK interval is 130 ms, QRS duration 70 ms, QTc is 440 ms.. There were no ST or T wave abnormalities to suggest myocardial ischemia or injury. R wave progression across the precordium was satisfactory. By my interpretation this EKG is non-diagnostic for acute ischemia. Critical Care Time Critical Care Time: Yes Total Critical Care Time: 35 Critical Care Time: Upon my evaluation, this patient had a high probability of imminent or life- threatening deterioration due to upper GI bleed, hematemesis, which required my direct attention, intervention, and personal management. I have personally provided 35 minutes of critical care time exclusive of time spent on separately billable procedures. Time includes review of laboratory data, radiology results, discussion with consultants, and monitoring for potential decompensation. Interventions were performed as documented in my note. Disposition Clinical Impression: Upper GI bleed, Hematemesis, Symptomatic anemia, Nausea and vomiting Disposition: ADMITTED IP TO THIS HOSP Condition: Serious
[2021-12-12 19:08] LABS: HCT 24.1 % (34.0-46.0); HGB 7.6 gm/dL (11.4-16.0); Hypochromasia Slight; MCH 30.3 pg (25.0-35.0); MCHC 31.7 g/dL (31.0-37.0); MCV 95.6 fL (80.0-100.0); Mean Platelet Volume 7.7; Platelet Count 373 k/uL (150-450); RBC 2.52 m/uL (3.80-5.40); RDW 14.8 % (11.5-15.5); WBC 19.6 k/uL (3.8-10.6)
[2021-12-12] MEDS: PANTOPRAZOLE 40 MG/10 ML VIAL IVP SCH (22:06)
[2021-12-12 22:08] VITALS: TEMP 98.1
[2021-12-13] MEDS ORDERED: diphenhydrAMINE 50 MG/ML 1 ML VIAL IVP STA (04:03)
[2021-12-13] MEDS ORDERED: DIAZEPAM 5 MG/ML 2 ML INJ IVP STA (04:03)
[2021-12-13] MEDS ORDERED: HYDROmorphone 1 MG/ML 1 ML SYRINGE IVP STA (04:03)
[2021-12-13] MEDS ORDERED: LEVOTHYROXINE 100 MCG TAB PO SCH (06:30)
[2021-12-13 08:00] LABS: Calcium 8.6 mg/dL (8.4-10.2); Potassium 5.4 mmol/L (3.5-5.1)
[2021-12-13] MEDS ORDERED: SYMBICORT 160-4.5 MCG INHALER INHALATION SCH (08:00)
[2021-12-13 08:08] LABS: Anisocytosis Slight; Hypochromasia Marked; MCH 29.6 pg (25.0-35.0); MCHC 30.1 g/dL (31.0-37.0); MCV 98.4 fL (80.0-100.0); Macrocytosis Slight; Mean Platelet Volume 8.6; Platelet Count 407 k/uL (150-450); RBC 3.36 m/uL (3.80-5.40); RDW 16.9 % (11.5-15.5); WBC 25.7 k/uL (3.8-10.6)
[2021-12-13 08:18] LABS: HGB 9.9 gm/dL (11.4-16.0)
[2021-12-13] MEDS ORDERED: DULoxetine HCL 60 MG CAPSULE.DR PO SCH (09:00)
[2021-12-13] MEDS ORDERED: FERROUS SULFATE 325 MG TAB PO SCH (09:00)
[2021-12-13] MEDS ORDERED: amLODIPine 10 MG TAB PO SCH (09:00)
[2021-12-13] MEDS ORDERED: METOPROLOL TARTRATE 25 MG TAB PO SCH (09:00)
[2021-12-13] MEDS ORDERED: SODIUM CHLORIDE 0.9% 250 ML BAG ONE (09:20)
[2021-12-13] MEDS ORDERED: SODIUM BICARB 8.4% 50 ML SYR (1 MEQ/ML) ONE (09:20)
[2021-12-13] MEDS ORDERED: EPINEPHrine 10 ML SYRINGE (0.1 MG/ML) ONE (09:20)
[2021-12-13] MEDS ORDERED: NOREPINEPHRINE 1 MG/ML 4 ML VIAL IV ONE (09:20)
[2021-12-13] MEDS ORDERED: ATROPINE SULFATE 0.1 MG/ML 10ML SYRINGE ONE (09:20)
[2021-12-13] MEDS: DEXTROSE 5% IN WATER 1,000 ML with SODIUM BICARB (1 MEQ/ML) 150 ML IV SCH ×2 (09:55→15:31)
[2021-12-13 10:12] LABS: Glucose,Whole Blood 83 mg/dL (75-99)
[2021-12-13 10:48] LABS: ABG Base Excess -13.9 mmol/L; ABG HCO3 16 mmol/L (21-25); ABG Oxygen Saturation 99.8 % (94-97); ABG PCO2 48 mmHg (35-45); ABG PO2 397 mmHg (83-108); ABG TCO2 17 mmol/L (19-24); Allen Test Performed? Yes
[2021-12-13 10:53] LABS: Band Neutrophils % 13 %; Lymphocytes # (M) 1.54 k/uL (1.0-4.8); Metamyelocytes # (M) 1.29 k/uL (0); Metamyelocytes % 5 %; Neutrophils % (M) 71 %; Nucleated Red Blood Cells 0 /100 WBC (0-0); Total Cells Counted 200
[2021-12-13 10:55] LABS: ABG PH 7.12 (7.35-7.45)
[2021-12-13 10:57] LABS: Mixed Population RBC Present
[2021-12-13] MEDS ORDERED: ARTIFICIAL TEARS-HYPROMELLOSE DROPS 15 ML BTL BOTH EYES PRN (10:57)
[2021-12-13] MEDS ORDERED: ATROPINE OPHTH SOLN 1% 5ML BTL SUBLINGUAL PRN (10:57)
[2021-12-13] MEDS ORDERED: MORPHINE SULFATE 4 MG/ML SYRINGE IVP ONE (10:57)
--- NOTE | 2021-12-13 10:57 | P.EN ---
Code Blue Note Arrival: CPR in Progress, asystole on the monitor patient was given multiple doses of epi and bicarb. she went from PEA to ROSC with a down time of approx 12 minutes. She had a BP on 142/70 and was in sinus rhythm on the monitor. She then again went into PEA arrest, multiple rounds of Bicarb, epi, and calcium. Again ROSC at 12 minutes. Her blood pressure on ROSC was 112/82 and quickly decreased. She was stated on levo, and D5 with 3 amps of bicarb at 300 was ordered along with 2L normal saline bolus. Dr. Scott was contacted and placed central and arterial line. I did discuss with and the patient was made a DNR. See code blue note for more detailed information regarding dosing and timing of medications. A total of 120 minutes of critical care time, excluding procedure and time critical care administered by Dr. Scott.
[2021-12-13 10:58] LABS: Polychromasia Present
[2021-12-13] MEDS ORDERED: LORazepam 2 MG/ML INJ IV PRN (10:59)
--- NOTE | 2021-12-13 10:59 | XR ---
EXAMINATION TYPE: XR chest 1V DATE OF EXAM: 12/13/2021 COMPARISON: 12/12/2021 INDICATION: Tube placement TECHNIQUE: Single frontal view of the chest is obtained. FINDINGS: The heart size is normal. The pulmonary vasculature is normal. Some minimal infiltrate is above the right diaphragm. Consider atelectasis. Left lower lobe infiltrat e appears to be developing. Atelectasis and pneumonia should be considered There is placement of an endotracheal tube 2.3 cm above the eloy. A guidewire appears to be present on the right, the tip is at the right sternoclavicular junction level IMPRESSION: 1. Developing infiltrate left base.: Atelectasis or pneumonia. 2. Mild subsegmental atelectasis is suspected above the right diaphragm. 3. Endotracheal tube tip 2.3 cm above eloy. 4. Guidewire on the right with the tip at the level of the sternoclavicular junction
[2021-12-13] MEDS ORDERED: MORPHINE SULFATE (100 MG/2 ML) 100 MG in SODIUM CHLORIDE 0.9% 100 ML IV SCH (11:00)
--- NOTE | 2021-12-13 11:01 | XR ---
EXAMINATION TYPE: XR KUB portable DATE OF EXAM: 12/13/2021 COMPARISON: None INDICATION: Guidewire placement TECHNIQUE: Single view abdomen supine view FINDINGS: There is a normal bowel gas pattern. Psoas margins are normal. No organomegaly is present. Guidewires in the right inguinal region and extends out of the field of view into the thorax. A left central venous catheter is in the left inguinal region. IMPRESSION: 1. Right inguinal guidewire extends out of the field of view into the thorax. 2. Left central venous catheter overlies the left inguinal region. 3. Nonspecific abdomen
[2021-12-13 11:03] LABS: Anisocytosis Slight; HCT 20.1 % (34.0-46.0); Hypochromasia Marked; MCH 29.7 pg (25.0-35.0); MCHC 29.8 g/dL (31.0-37.0); MCV 99.5 fL (80.0-100.0); Macrocytosis Slight; Mean Platelet Volume 8.4; Platelet Count 166 k/uL (150-450); RBC 2.02 m/uL (3.80-5.40); RDW 17.1 % (11.5-15.5)
--- NOTE | 2021-12-13 11:06 | P.EN ---
Dr. Scott discussed with family and plan is for comfort measurea. I did confirm with family plan for comfort and placed comfort medication order set and discussed with the family the process of comfort measures.
[2021-12-13 11:12] LABS: INR 1.9 (<1.2); Prothrombin Time 19.1 sec (9.0-12.0)
[2021-12-13 11:22] LABS: Albumin 1.6 g/dL (3.5-5.0); Calcium 7.3 mg/dL (8.4-10.2); Magnesium 2.9 mg/dL (1.6-2.3); Potassium 5.3 mmol/L (3.5-5.1); Total Bilirubin 0.7 mg/dL (0.2-1.3); Total Protein 3.1 g/dL (6.3-8.2)
[2021-12-13 12:21] LABS: Band Neutrophils % 16 %; Basophils # (M) 0.14 k/uL (0-0.2); Eosinophils # (M) 0.14 k/uL (0-0.7); Metamyelocytes % 2 %; Myelocytes # (M) 0.14 k/uL (0); Myelocytes % 1 %; Neutrophils % (M) 65 %; Nucleated Red Blood Cells 3 /100 WBC (0-0); Total Cells Counted 200
[2021-12-13 12:22] LABS: Lymphocytes # (M) 1.77 k/uL (1.0-4.8); Metamyelocytes # (M) 0.27 k/uL (0); Monocytes # (M) 0.41 k/uL (0-1.0); WBC 13.6 k/uL (3.8-10.6)
[2021-12-13 12:23] LABS: Poikilocytosis (M) Present; Polychromasia Present
--- NOTE | 2021-12-13 12:50 | P.EN ---
Delayed charting due to dragon and EMR downtime CODE BLUE Indication: unresponsive patient Arrived on Scene to find: CPR in progress with epi given. Initial Rhythm: asystole Code Course: I'm admitting physician, to room to examine patient noted she was unresponsive and activated CODE BLUE. Patient was noted to be in asystole. She was administered multiple rounds of epinephrine and bicarbonate. Her morning labs were able to be reviewed which showed significant metabolic acidosis with CO2 level of 12, hemoglobin had corrected to 9.2 after transfusion of 1 unit. After approximately 12 minutes of CPR we did obtain return of spontaneous circulation. Patient's blood pressure was 142/72 on manua and blood glucose at bedside was 83. We're preparing to initiate additional testing in one patient again went into an asystole pattern. She this time received multiple amps of bicarb, epinephrine, and calcium gluconate. We again obtained return of spontaneous circulation with an initial rhythm of sinus bradycardia and the patient was given 0.5 mg of atropine. Her initial blood pressure was 128/72 but quickly began to decrease. EKG obtained without signs of ST segment elevation. She was started on Levophed drip. She was given additional amps of bicarbonate. Due to her severe acidosis prior to the code as well as her prolonged diet time orders were given for a D5W with 3 of bicarb drip to run at 300. Please seen ode blue record for further details Physical exam after second ROSC revealed absent cough, absent gag. No spontaneous respirations. No withdrawal to pain. Pupils were fixed and dilated. Total Down Time: Approximately 24-28 minutes. Vital signs reviewed Cardiovascular: S1S2 reg, no murmur, positive posterior tibial pulse bilateral, Lungs: Clear with equal breath sounds bilateral Abdominal: soft, nontender to palpation, no guarding, no appreciable organomegaly Ext: no gross muscle atrophy, no edema, no contractures Neuro: Pupils fixed and dilated, no withdrawal to pain, absent cough, absent gag Assessment: Cardiac arrest with prolonged downtime Probable anoxic encephalopathy Acute blood loss anemia Acidosis Hyperkalemia Hyperchloremia Plan: Stat labs were ordered with a CBC, CMP, mag, [place], lactic acid Dr. Rousseau was notified. He presented to bedside and place arterial line and central venous catheter. was updated in the family waiting room of the ER with a prolonged conversation elected for DO NOT RESUSCITATE status. Dr. Long notified over phone regarding ROSC and admission to ICU Disposition: Initial plan was to admit to ICU. However after Dr. Rousseau and Dr. Barnhart with the family again they elected for comfort measures. I initiated the comfort measures order set and confirmed with the family that this is their wishes. Repeat blood work was not available at the time of transition to comfort measures. Dr. Long notified of transition to comfort measures via perfect serve A Total of 123 minutes of critical care time was spent on the complex care of this patient.
--- NOTE | 2021-12-13 13:17 | P.CNPUL ---
History of Present Illness Consult date: 12/13/21 Requesting physician: Cindy Lam Reason for consult: other (Acute hypoxic respiratory failure and cardiac arrest.) Chief complaint: Syncopal episode and coffee-ground emesis at home. History of present illness: This is a 81-year-old female who was seen in the ER yesterday at 16:26, patient was brought into the ER apparently with syncopal episode, and she had 2 episodes of dark coffee-ground emesis at home. Patient never had any history of GI bleeding, patient felt weaker and she was complaining of some vague abdominal discomfort in the epigastric region. Patient had no shortness of breath, no chest pain, but she was profoundly weak. EMS evaluated the patient, and she was brought into the ER. A shunt was seen by the ER physician, and her hemoglobin at the time was 7.6. Her basic metabolic profile was relatively unremarkable except for elevated BUN of 50 which is not unusual considering patient had GI bleeding, creatinine was 1.23. Patient had a relatively normal troponin level, normal liver enzymes, lactic acid was borderline elevated at 2.2. Patient did receive 1 unit of packed RBCs, and apparently she had a repeat CBC after the one unit of packed RBCs, her hemoglobin was 6.0. Patient was in the ER, and basically waiting for bed availability to be admitted. Early this morning, XIOMY DREW was called on this patient, and responded to XIOMY DREW, and ap parently the patient developed asystole, and when she arrived the CPR was in progress. According to her note the patient received multiple doses of epinephrine and bicarb, patient went into pulseless electrical activity and she had return of spontaneous circulation 12 minutes later. Then she went again into pulseless electrical activity/cardiac arrest, multiple rounds of bicarbonate epinephrine and calcium were given. Again it took another 12 minutes before return of spontaneous circulation. Patient was placed on norepinephrine, she was also given 3 A of bicarb, and she was given 2 L of no rmal saline bolus. I happened to be in the ER shortly after, and the patient was noted to be hypotensive, and arrangements were being made to admit the patient to the ICU. Went ahead and on emergency basis, I attempted to place a right femoral triple-lumen catheter, however procedure could not be completed because I lost the guidewire into the venous circulation, vascular surgery was consulted, and the plan was dyspnea the guidewire from the right femoral vein, however after discussing the situation with the family, the clearly stated that he wants his to go to comfort care measures. Prior to that patient was made DO NOT RESUSCITATE by Dr. lam. Dr. Barnhart was willing to take the patient to the cardiac catheterization lab and snare the easily from the venous circulation. However considering the family wanted comfort care measures, we decided not to proceed any further. However shortly after attempting the right femoral triple-lumen catheter, and before making the patient comfort care measures, I was able to establish a left femoral venous access and I was able to establish a right radial arterial line for hemodynamic monitoring and these were done on emergency basis shortly after the patient arrested and coded Review of Systems ROS unobtainable: due to endotracheal tube Past Medical History Past Medical History: Asthma, Fibromyalgia, GERD/Reflux, Hearing Disorder / Smita fness, Hyperlipidemia, Hypertension, Pneumonia, Renal Disease, Skin Disorder, Thyroid Disorder Additional Past Medical History / Comment(s): ANEMIA (HX OF IRON INFUSIONS),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 History of Any Multi-Drug Resistant Organisms: None Reported Past Surgical History: Appendectomy, Heart Catheterization, Hysterectomy, Joint Replacement, Tonsillectomy Additional Past Surgical History / Comment(s): rt knee replacement, madonna cataract.COLONOSCOPY, HEMORRHOIDECTOMY. Past Anesthesia/Blood Transfusion Reactions: Motion Sickness Past Psychological History: No Psychological Hx Reported Smoking Status: Former smoker Past Alcohol Use History: None Reported Past Drug Use History: None Reported - Past Family History Mother Family Medical History: No Reported History Father Family Medical History: Cancer Additional Family Medical History / Comment(s): lung cancer Medications and Allergies Home Medications Medication Instructions Recorded Confirmed Type DULoxetine HCL [Cymbalta] 60 mg PO DAILY 02/04/17 12/12/21 History Ferrous Sulfate [Iron (65 MG 325 mg PO DAILY 02/04/17 12/12/21 History Elemental)] Fluticasone/Salmeterol [Advair 1 puff INHALATION RT-BID 02/04/17 12/12/21 History 500-50 Diskus] Melatonin 5 mg PO HS 02/04/17 12/12/21 History Multivitamins, Thera [Multivitamin 1 tab PO DAILY 02/04/17 12/12/21 History (formulary)] Calcium Carbonate/Vitamin D3 1 tab PO BID 03/21/17 12/12/21 History [Calcium 600-Vit D3 400 Caplet] Magnesium Oxide [Mag-Ox] 250 mg PO DAILY 01/06/18 12/12/21 History Hydrocodone/Acetaminophen [Comstock 1 tab PO Q6HR PRN 09/18/21 12/12/21 History 7.5-325] Levothyroxine Sodium 100 mcg PO DAILY 09/18/21 12/12/21 History Montelukast [Singulair] 10 mg PO DAILY 09/18/21 12/12/21 History Nortriptyline [Pamelor] 25 mg PO HS 09/18/21 12/12/21 History Atorvastatin [Lipitor] 40 mg PO HS #30 tab 09/20/21 12/12/21 Rx Clopidogrel [Plavix] 75 mg PO DAILY #30 tab 09/20/21 12/12/21 Rx Metoprolol Tartrate [Lopressor] 25 mg PO BID #60 tab 09/20/21 12/12/21 Rx Pantoprazole [Protonix] 40 mg PO AC-BRKFST #30 tab 09/20/21 12/12/21 Rx amLODIPine [Norvasc] 10 mg PO DAILY #60 tab 09/20/21 12/12/21 Rx Aspirin EC [Ecotrin Low Dose] 81 mg PO DAILY 12/12/21 12/12/21 History Danielle Back And Body 500-32.5mg 2 tab PO Q6H PRN 12/12/21 12/12/21 History Galcanezumab-Gnlm [Emgality 120 mg SQ QMONTHLY 12/12/21 12/12/21 History Syringe] diphenhydrAMINE [Benadryl] 150 mg PO HS PRN 12/12/21 12/12/21 History Allergies Allergy/AdvReac Type Severity Reaction Status Date / Time peanut Allergy Anaphylaxis Verified 12/12/21 18:48 Physical Exam Vitals: Vital Signs Temp Pulse Resp BP Pulse Ox 12/13/21 11:22 101 H 22 36/14 100 12/13/21 09:20 0 L 0 L 12/13/21 06:16 98 30 H 142/33 98 12/13/21 03:58 108 H 20 106/60 98 12/13/21 01:59 114 H 18 102/76 96 12/13/21 00:46 111 H 20 121/68 96 12/12/21 22:06 98.1 F 86 20 130/78 12/12/21 20:05 98.0 F 89 18 137/75 98 12/12/21 19:41 90 18 138/65 100 12/12/21 19:35 98.0 F 95 18 148/79 99 12/12/21 19:28 99 12/12/21 19:25 97.9 F 92 18 137/49 98 12/12/21 19:20 97.9 F 93 20 132/60 12/12/21 16:54 95 18 114/56 95 12/12/21 16:30 90 20 110/69 98 12/12/21 16:09 96 20 121/59 95 Intake and Output 12/12/21 12/13/21 12/13/21 22:59 06:59 14:59 Intake Total 510 Balance 510 Intake: Blood Product 310 Rc As-1 Unit 310 [id number] Other 200 Rc As-1 Unit 200 [id number] Other: Weight 97.976 kg Physical Exam revealed 81-year-old female intubated, mechanically ventilated, unresponsive to any stimuli. Head: Atraumatic, normocephalic. HEENT:[Dilated and unreactive pupils no neck masses no JVD, endotracheal tube seems to be intact. Chest: [Symmetrical chest expansion, diminished breath sounds at the bases no rhonchi no wheezes Cardiac Exam: [Normal S1 and S2, no S3 gallop, no murmur.] Abdomen: [Wheeze, Soft, nontender, no megaly, no rebound, no guarding, normal bowel sounds.] Extremities: Diminished distal pulses, cold hands with cyanosis noted. And poor perfusion in lower extremities. Neurological Exam: Unresponsive to any stimuli, pupils were made to be dilated and unreactive to light. Results - Laboratory Findings CBC and BMP: 12/13/21 10:48 12/13/21 10:48 ABG ABG pH 7.12 (7.35-7.45) L* 01/19/22 10:25 ABG pCO2 48 mmHg (35-45) H 12/13/21 10:25 ABG pO2 397 mmHg (83-108) H 12/13/21 10:25 ABG O2 Saturation 99.8 % (94-97) H 12/13/21 10:25 PT/INR, D-dimer PT 19.1 sec (9.0-12.0) H 12/13/21 10:48 INR 1.9 (<1.2) H 12/13/21 10:48 Abnormal lab findings: Abnormal Labs 12/12/21 12/12/21 12/12/21 16:18 16:18 16:18 WBC RBC 2.80 L Hgb 8.6 L Hct 26.5 L MCHC RDW Neutrophils # 8.1 H Neutrophils # (Manual) Monocytes # (Manual) Metamyelocytes # (Man) Myelocytes # (Manual) Nucleated RBCs PT INR APTT 19.9 L ABG pH ABG pCO2 ABG pO2 ABG HCO3 ABG Total CO2 ABG O2 Saturation ABG Lactic Acid Sodium Potassium Chloride 108 H Carbon Dioxide BUN 50 H Creatinine 1.23 H Glucose 111 H Plasma Lactic Acid Vinayak Calcium Phosphorus Magnesium AST ALT Total Protein 6.0 L Albumin 3.2 L Crossmatch 12/12/21 12/12/21 12/12/21 16:18 16:19 18:48 WBC 19.6 H RBC 2.52 L Hgb 7.6 L Hct 24.1 L MCHC RDW Neutrophils # Neutrophils # (Manual) Monocytes # (Manual) Metamyelocytes # (Man) Myelocytes # (Manual) Nucleated RBCs PT INR APTT ABG pH ABG pCO2 ABG pO2 ABG HCO3 ABG Total CO2 ABG O2 Saturation ABG Lactic Acid Sodium Potassium Chloride Carbon Dioxide BUN Creatinine Glucose Plasma Lactic Acid Vinayak 2.2 H* Calcium Phosphorus Magnesium AST ALT Total Protein Albumin Crossmatch See Detail 12/13/21 12/13/21 12/13/21 07:05 07:05 10:25 WBC 25.7 H RBC 3.36 L Hgb 9.9 L D Hct 33.0 L MCHC 30.1 L RDW 16.9 H Neutrophils # Neutrophils # (Manual) 21.50 H Monocytes # (Manual) 1.80 H Metamyelocytes # (Man) 1.29 H Myelocytes # (Manual) Nucleated RBCs PT INR APTT ABG pH 7.12 L* ABG pCO2 48 H ABG pO2 397 H ABG HCO3 16 L ABG Total CO2 17 L ABG O2 Saturation 99.8 H ABG Lactic Acid Sodium Potassium 5.4 H Chloride 117 H Carbon Dioxide 12 L BUN 79 H Creatinine 2.21 H Glucose 106 H Plasma Lactic Acid Vinayak Calcium Phosphorus Magnesium AST ALT Total Protein Albumin Crossmatch 12/13/21 12/13/21 12/13/21 10:48 10:48 10:48 WBC 13.6 H RBC 2.02 L Hgb 6.0 L* D Hct 20.1 L MCHC 29.8 L RDW 17.1 H Neutrophils # Neutrophils # (Manual) 11.00 H Monocytes # (Manual) Metamyelocytes # (Man) 0.27 H Myelocytes # (Manual) 0.14 H Nucleated RBCs 3 H PT 19.1 H INR 1.9 H APTT ABG pH ABG pCO2 ABG pO2 ABG HCO3 ABG Total CO2 ABG O2 Saturation ABG Lactic Acid Sodium 153 H Potassium 5.3 H Chloride 116 H Carbon Dioxide 17 L BUN 80 H Creatinine 2.11 H Glucose 58 L Plasma Lactic Acid Vinayak Calcium 7.3 L Phosphorus 10.0 H* Magnesium 2.9 H AST 1899 H ALT 1567 H Total Protein 3.1 L Albumin 1.6 L Crossmatch 12/13/21 10:48 WBC RBC Hgb Hct MCHC RDW Neutrophils # Neutrophils # (Manual) Monocytes # (Manual) Metamyelocytes # (Man) Myelocytes # (Manual) Nucleated RBCs PT INR APTT ABG pH ABG pCO2 ABG pO2 ABG HCO3 ABG Total CO2 ABG O2 Saturation ABG Lactic Acid 15.6 H* Sodium Potassium Chloride Carbon Dioxide BUN Creatinine Glucose Plasma Lactic Acid Vinayak Calcium Phosphorus Magnesium AST ALT Total Protein Albumin Crossmatch - Diagnostic Findings Chest x-ray: image reviewed (Chest x-ray reviewed, minimal atelectasis is noted in the left base, endotracheal tube noted to be in proper position. Distal end of guidewire noted in the SVC.) Assessment and Plan Assessment: Impression: Acute hypoxic respiratory failure secondary to cardiac arrest. Acute upper GI bleeding, exact source and etiology is not clear. Suspect anoxic brain injury because of prolonged CPR. Recommendation: Discussed the whole clinical situation with the and daughter at bedside, family requested comfort care measures, is concerned that the patient had no previous good quality of life, and now that she may have anoxic brain injury, he prefers to proceed with comfort care measures, and no further intervention. Proceed to comfort care measures, discussed the patient's situation with Dr lam , and vascular surgery. And with family. Time with Patient: Greater than 30
--- NOTE | 2021-12-13 14:52 | PCN ---
PROCEDURE NOTE OPERATIVE REPORT: Placement of the right radial arterial line. PREOPERATIVE DIAGNOSIS: Cardiac arrest and hypotension, this was done under emergency conditions. The patient was hypotensive post CPR. ANESTHESIA: None deployed. PROCEDURE DETAILS: The right wrist was prepared in a sterile fashion. The drapes were applied. The right radial artery was palpated, cannulated, and a guidewire was placed. A Cook's catheter was inserted over the guidewire, and the guidewire was removed. Good blood flow, good waveform noted, no evidence of any complications. Line was secured using 3.0 silk sutures. MMODL / IJN: [id number] /
--- NOTE | 2021-12-13 14:52 | PCN ---
PROCEDURE NOTE OPERATIVE REPORT: Attempt to place a right femoral triple-lumen catheter. PREOPERATIVE DIAGNOSIS: Cardiac arrest and respiratory failure. POSTOPERATIVE DIAGNOSIS: Cardiac arrest and respiratory failure. ANESTHESIA: None deployed. PROCEDURE: The right groin was prepared in a sterile fashion and drapes were applied. The right femoral vein was easily cannulated, and a guidewire was placed. The area around the guidewire was dilated, and as I was dilating the area around the guidewire, apparently the guidewire accidentally moved distally into the distal tip of the dilator, and as I removed the dilator, the guidewire was noted to be in the subcutaneous tissue and could not be seen. I attempted to remove the guidewire, and could not get hold of the guidewire with Sendy forceps. Vascular surgery was consulted, and Dr. Barnhart was planning to have the patient go to the quality assurance qa lab analyst and remove the guidewire. However, the family was approached with the issue and overall issue of the patient, and the family basically declined any further workup or any further procedures, they basically recommended and wanted comfort care measures because of her overall clinical condition and the previous quality of life. Shortly after discussing this with the family, the patient was made comfort care measures, and we did not feel that there is a need to go and retrieve the guidewire from the right femoral vein. Again this procedure was complicated by losing the guidewire into the right femoral vein. MMODL / IJN: [id number] /
--- NOTE | 2021-12-13 14:58 | OP ---
OPERATIVE REPORT OPERATIVE REPORT: Placement of a left femoral triple-lumen catheter. This procedure was done on an emergency basis. PREOPERATIVE DIAGNOSIS: Acute hypoxic respiratory failure and cardiac arrest. POSTOPERATIVE DIAGNOSIS: Acute hypoxic respiratory failure and cardiac arrest. ANESTHESIA USED: None deployed. PROCEDURE DESCRIPTION: This procedure was done on an emergency basis. Patient was just recovering from CPR, and she required a significant amount of norepinephrine and needed a central line access. Anyway, the left groin was prepared in a sterile fashion and drapes were applied. The left femoral vein was easily cannulated. A guidewire was placed, and the area around the guidewire was dilated using a dilator. Then a triple-lumen catheter was inserted over the guidewire and the guidewire was removed. Good blood flow was noted in the 3 different ports. Line was secured using 3.0 silk sutures. No evidence of any complications. MMODL / IJN: [id number] /
--- NOTE | 2021-12-13 15:19 | P.GSHP ---
History of Present Illness H&P Date: 12/13/21 Patient seen and examined at 9 AM on 12/13/2021 CHIEF COMPLAINT: GI bleed and syncope HISTORY OF PRESENT ILLNESS: This is a 81-year-old female who is brought into the emergency room with syncopal episode. She had 2 episodes of coffee ground emesis at home. She's never had a prior history of GI bleed. Per ER report patient was having epigastric abdominal pain. Patient takes aspirin and Plavix at home. Patient was obtunded during exam but able to open eyes. She was requiring 6 L of oxygen. Otherwise vitals had been stable. Patient's history was obtained from chart. Patient had been requiring IV pain medications through the night per nurse. No further vomiting reported. Hemoglobin on admission was 7.6. She did receive a unit of blood and hemoglobin had increased to 9.9. However, as as the morning progressed patient declined. A CODE BLUE was called and patient required CPR. Patient was given epinephrine, bicarb and fluid boluses. She was also started on levo. Patient had another hemoglobin check which was decreased at 6.0. Please refer to chart for further recommendation on code. Patient's family was notified by sounds physician and critical care service. Family has requested that patient be made comfort care. PAST MEDICAL HISTORY: See list. PAST SURGICAL HISTORY: See list. MEDICATIONS: See list. ALLERGIES: See list. SOCIAL HISTORY: No illicit drug use. REVIEW OF SYSTEMS: Unable to obtain. Patient obtunded. PHYSICAL EXAM: VITAL SIGNS: Reviewed GENERAL: Well-developed in no acute distress. HEENT: No sclera icterus. Extraocular movements grossly intact. Moist buccal mucosa. Head is atraumatic, normocephalic. No nasal drainage. ABDOMEN: Soft. Obese. Nondistended. NEUROLOGIC: Patient obtunded. Able to open eyes. LABORATORY DATA: WBC 19.6 down to 13.6 hemoglobin 7.6 up to 9.9 down to 6.0 platelets 166 Sodium 153 potassium 5.3 creatinine 2.11 Lactic acid 2.2 down to 1.6 LFTs initially normal on admission repeat labs were elevated Gastric occult blood positive COVID-19 not detected IMAGING: Computed tomography scan abdomen and pelvis dilated stomach that could relate to some gastroparesis. No evidence of contrast extravasation to suggest active GI bleeding. Pre-existing contrast material in the large bowel limits exam. Renal atrophy. Mild subsegmental atelectasis at the lung bases. ASSESSMENT: 1. Acute upper GI bleed, exact etiology unclear 2. Acute hypoxic respiratory failure secondary to cardiac arrest requiring CPR 3. Probable anoxic encephalopathy 4. Acute blood loss anemia 5. Elevated LFTs likely secondary to hypotension 6. Acute on chronic renal failure 7. Syncopal episode PLAN: -Patient's overall prognosis is poor. Agree with comfort care measures. Physician [employer] note has been reviewed by physician. Signing provider agrees with the documented findings, assessment, and plan of care. Past Medical History Past Medical History: Asthma, Fibromyalgia, GERD/Reflux, Hearing Disorder / Deafness, Hyperlipidemia, Hypertension, Pneumonia, Renal Disease, Skin Disorder, Thyroid Disorder Additional Past Medical History / Comment(s): ANEMIA (HX OF IRON INFUSIONS),CHRONIC BACK PAIN DDD, BACK INJ,MIGRAINE HEADACHES, STATES "LITTLE SORES" ON HER FACE AT SCALP LINE., [place] (DOES NOT WEAR HER HEARING AIDS),past BLEEDING HEMORRHOIDS (had sx).SINUS,"TOLD ONE KIDNEY SMALLER THAN OTHER AND ONE KIDNEY HAS A CYST ON IT.DIVERTICULOSIS. History of Any Multi-Drug Resistant Organisms: None Reported Past Surgical History: Appendectomy, Heart Catheterization, Hysterectomy, Joint Replacement, Tonsillectomy Additional Past Surgical History / Comment(s): rt knee replacement, madonna cataract.COLONOSCOPY, HEMORRHOIDECTOMY. Past Anesthesia/Blood Transfusion Reactions: Motion Sickness Past Psychological History: No Psychological Hx Reported Smoking Status: Former smoker Past Alcohol Use History: None Reported Past Drug Use History: None Reported - Past Family History Mother Family Medical History: No Reported History Father Family Medical History: Cancer Additional Family Medical History / Comment(s): lung cancer Medications and Allergies Home Medications Medication Instructions Recorded Confirmed Type DULoxetine HCL [Cymbalta] 60 mg PO DAILY 02/04/17 12/12/21 History Ferrous Sulfate [Iron (65 MG 325 mg PO DAILY 02/04/17 12/12/21 History Elemental)] Fluticasone/Salmeterol [Advair 1 puff INHALATION RT-BID 02/04/17 12/12/21 History 500-50 Diskus] Melatonin 5 mg PO HS 02/04/17 12/12/21 History Multivitamins, Thera [Multivitamin 1 tab PO DAILY 02/04/17 12/12/21 History (formulary)] Calcium Carbonate/Vitamin D3 1 tab PO BID 03/21/17 12/12/21 History [Calcium 600-Vit D3 400 Caplet] Magnesium Oxide [Mag-Ox] 250 mg PO DAILY 01/06/18 12/12/21 History Hydrocodone/Acetaminophen [[place] 1 tab PO Q6HR PRN 09/18/21 12/12/21 History 7.5-325] Levothyroxine Sodium 100 mcg PO DAILY 09/18/21 12/12/21 History Montelukast [Singulair] 10 mg PO DAILY 09/18/21 12/12/21 History Nortriptyline [Pamelor] 25 mg PO HS 09/18/21 12/12/21 History Atorvastatin [Lipitor] 40 mg PO HS #30 tab 09/20/21 12/12/21 Rx Clopidogrel [Plavix] 75 mg PO DAILY #30 tab 09/20/21 12/12/21 Rx Metoprolol Tartrate [Lopressor] 25 mg PO BID #60 tab 09/20/21 12/12/21 Rx Pantoprazole [Protonix] 40 mg PO AC-BRKFST #30 tab 09/20/21 12/12/21 Rx amLODIPine [Norvasc] 10 mg PO DAILY #60 tab 09/20/21 12/12/21 Rx Aspirin EC [Ecotrin Low Dose] 81 mg PO DAILY 12/12/21 12/12/21 History Danielle Back And Body 500-32.5mg 2 tab PO Q6H PRN 12/12/21 12/12/21 History Galcanezumab-Gnlm [Emgality 120 mg SQ QMONTHLY 12/12/21 12/12/21 History Syringe] diphenhydrAMINE [Benadryl] 150 mg PO HS PRN 12/12/21 12/12/21 History Allergies Allergy/AdvReac Type Severity Reaction Status Date / Time peanut Allergy Anaphylaxis Verified 12/12/21 18:48 Surgical - Exam Vital Signs Pulse Resp BP Pulse Ox 96 20 121/59 95 12/12/21 16:09 12/12/21 16:09 12/12/21 16:09 12/12/21 16:09 Results - Labs 12/13/21 10:48 12/13/21 10:48 Abnormal Lab Results - Last 24 Hours (Table) 12/12/21 12/12/21 12/12/21 Range/Units 16:18 16:18 16:18 WBC (3.8-10.6) k/uL RBC 2.80 L (3.80-5.40) m/uL Hgb 8.6 L (11.4-16.0) gm/dL Hct 26.5 L (34.0-46.0) % MCHC (31.0-37.0) g/dL RDW (11.5-15.5) % Neutrophils # 8.1 H (1.3-7.7) k/uL Neutrophils # (Manual) (1.3-7.7) k/uL Monocytes # (Manual) (0-1.0) k/uL Metamyelocytes # (Man) (0) k/uL Myelocytes # (Manual) (0) k/uL Nucleated RBCs (0-0) /100 WBC PT (9.0-12.0) sec INR (<1.2) APTT 19.9 L (22.0-30.0) sec ABG pH (7.35-7.45) ABG pCO2 (35-45) mmHg ABG pO2 (83-108) mmHg ABG HCO3 (21-25) mmol/L ABG Total CO2 (19-24) mmol/L ABG O2 Saturation (94-97) % ABG Lactic Acid (0.5-1.6) mmol/L Sodium (137-145) mmol/L Potassium (3.5-5.1) mmol/L Chloride 108 H (98-107) mmol/L Carbon Dioxide (22-30) mmol/L BUN 50 H (7-17) mg/dL Creatinine 1.23 H (0.52-1.04) mg/dL Glucose 111 H (74-99) mg/dL Plasma Lactic Acid Vinayak (0.7-2.0) mmol/L Calcium (8.4-10.2) mg/dL Phosphorus (2.5-4.5) mg/dL Magnesium (1.6-2.3) mg/dL AST (14-36) U/L ALT (4-34) U/L Total Protein 6.0 L (6.3-8.2) g/dL Albumin 3.2 L (3.5-5.0) g/dL Crossmatch 12/12/21 12/12/21 12/12/21 Range/Units 16:18 16:19 18:48 WBC 19.6 H (3.8-10.6) k/uL RBC 2.52 L (3.80-5.40) m/uL Hgb 7.6 L (11.4-16.0) gm/dL Hct 24.1 L (34.0-46.0) % MCHC (31.0-37.0) g/dL RDW (11.5-15.5) % Neutrophils # (1.3-7.7) k/uL Neutrophils # (Manual) (1.3-7.7) k/uL Monocytes # (Manual) (0-1.0) k/uL Metamyelocytes # (Man) (0) k/uL Myelocytes # (Manual) (0) k/uL Nucleated RBCs (0-0) /100 WBC PT (9.0-12.0) sec INR (<1.2) APTT (22.0-30.0) sec ABG pH (7.35-7.45) ABG pCO2 (35-45) mmHg ABG pO2 (83-108) mmHg ABG HCO3 (21-25) mmol/L ABG Total CO2 (19-24) mmol/L ABG O2 Saturation (94-97) % ABG Lactic Acid (0.5-1.6) mmol/L Sodium (137-145) mmol/L Potassium (3.5-5.1) mmol/L Chloride (98-107) mmol/L Carbon Dioxide (22-30) mmol/L BUN (7-17) mg/dL Creatinine (0.52-1.04) mg/dL Glucose (74-99) mg/dL Plasma Lactic Acid Vinayak 2.2 H* (0.7-2.0) mmol/L Calcium (8.4-10.2) mg/dL Phosphorus (2.5-4.5) mg/dL Magnesium (1.6-2.3) mg/dL AST (14-36) U/L ALT (4-34) U/L Total Protein (6.3-8.2) g/dL Albumin (3.5-5.0) g/dL Crossmatch See Detail 12/13/21 12/13/21 12/13/21 Range/Units 07:05 07:05 10:25 WBC 25.7 H (3.8-10.6) k/uL RBC 3.36 L (3.80-5.40) m/uL Hgb 9.9 L D (11.4-16.0) gm/dL Hct 33.0 L (34.0-46.0) % MCHC 30.1 L (31.0-37.0) g/dL RDW 16.9 H (11.5-15.5) % Neutrophils # (1.3-7.7) k/uL Neutrophils # (Manual) 21.50 H (1.3-7.7) k/uL Monocytes # (Manual) 1.80 H (0-1.0) k/uL Metamyelocytes # (Man) 1.29 H (0) k/uL Myelocytes # (Manual) (0) k/uL Nucleated RBCs (0-0) /100 WBC PT (9.0-12.0) sec INR (<1.2) APTT (22.0-30.0) sec ABG pH 7.12 L* (7.35-7.45) ABG pCO2 48 H (35-45) mmHg ABG pO2 397 H (83-108) mmHg ABG HCO3 16 L (21-25) mmol/L ABG Total CO2 17 L (19-24) mmol/L ABG O2 Saturation 99.8 H (94-97) % ABG Lactic Acid (0.5-1.6) mmol/L Sodium (137-145) mmol/L Potassium 5.4 H (3.5-5.1) mmol/L Chloride 117 H (98-107) mmol/L Carbon Dioxide 12 L (22-30) mmol/L BUN 79 H (7-17) mg/dL Creatinine 2.21 H (0.52-1.04) mg/dL Glucose 106 H (74-99) mg/dL Plasma Lactic Acid Vinayak (0.7-2.0) mmol/L Calcium (8.4-10.2) mg/dL Phosphorus (2.5-4.5) mg/dL Magnesium (1.6-2.3) mg/dL AST (14-36) U/L ALT (4-34) U/L Total Protein (6.3-8.2) g/dL Albumin (3.5-5.0) g/dL Crossmatch 12/13/21 12/13/21 12/13/21 Range/Units 10:48 10:48 10:48 WBC 13.6 H (3.8-10.6) k/uL RBC 2.02 L (3.80-5.40) m/uL Hgb 6.0 L* D (11.4-16.0) gm/dL Hct 20.1 L (34.0-46.0) % MCHC 29.8 L (31.0-37.0) g/dL RDW 17.1 H (11.5-15.5) % Neutrophils # (1.3-7.7) k/uL Neutrophils # (Manual) 11.00 H (1.3-7.7) k/uL Monocytes # (Manual) (0-1.0) k/uL Metamyelocytes # (Man) 0.27 H (0) k/uL Myelocytes # (Manual) 0.14 H (0) k/uL Nucleated RBCs 3 H (0-0) /100 WBC PT 19.1 H (9.0-12.0) sec INR 1.9 H (<1.2) APTT (22.0-30.0) sec ABG pH (7.35-7.45) ABG pCO2 (35-45) mmHg ABG pO2 (83-108) mmHg ABG HCO3 (21-25) mmol/L ABG Total CO2 (19-24) mmol/L ABG O2 Saturation (94-97) % ABG Lactic Acid (0.5-1.6) mmol/L Sodium 153 H (137-145) mmol/L Potassium 5.3 H (3.5-5.1) mmol/L Chloride 116 H (98-107) mmol/L Carbon Dioxide 17 L (22-30) mmol/L BUN 80 H (7-17) mg/dL Creatinine 2.11 H (0.52-1.04) mg/dL Glucose 58 L (74-99) mg/dL Plasma Lactic Acid Vinayak (0.7-2.0) mmol/L Calcium 7.3 L (8.4-10.2) mg/dL Phosphorus 10.0 H* (2.5-4.5) mg/dL Magnesium 2.9 H (1.6-2.3) mg/dL AST 1899 H (14-36) U/L ALT 1567 H (4-34) U/L Total Protein 3.1 L (6.3-8.2) g/dL Albumin 1.6 L (3.5-5.0) g/dL Crossmatch 12/13/21 Range/Units 10:48 WBC (3.8-10.6) k/uL RBC (3.80-5.40) m/uL Hgb (11.4-16.0) gm/dL Hct (34.0-46.0) % MCHC (31.0-37.0) g/dL RDW (11.5-15.5) % Neutrophils # (1.3-7.7) k/uL Neutrophils # (Manual) (1.3-7.7) k/uL Monocytes # (Manual) (0-1.0) k/uL Metamyelocytes # (Man) (0) k/uL Myelocytes # (Manual) (0) k/uL Nucleated RBCs (0-0) /100 WBC PT (9.0-12.0) sec INR (<1.2) APTT (22.0-30.0) sec ABG pH (7.35-7.45) ABG pCO2 (35-45) mmHg ABG pO2 (83-108) mmHg ABG HCO3 (21-25) mmol/L ABG Total CO2 (19-24) mmol/L ABG O2 Saturation (94-97) % ABG Lactic Acid 15.6 H* (0.5-1.6) mmol/L Sodium (137-145) mmol/L Potassium (3.5-5.1) mmol/L Chloride (98-107) mmol/L Carbon Dioxide (22-30) mmol/L BUN (7-17) mg/dL Creatinine (0.52-1.04) mg/dL Glucose (74-99) mg/dL Plasma Lactic Acid Vinayak (0.7-2.0) mmol/L Calcium (8.4-10.2) mg/dL Phosphorus (2.5-4.5) mg/dL Magnesium (1.6-2.3) mg/dL AST (14-36) U/L ALT (4-34) U/L Total Protein (6.3-8.2) g/dL Albumin (3.5-5.0) g/dL Crossmatch Diabetes panel 12/12/21 12/13/21 12/13/21 Range/Units 16:18 07:05 10:48 Sodium 141 144 153 H (137-145) mmol/L Potassium 4.0 5.4 H 5.3 H (3.5-5.1) mmol/L Chloride 108 H 117 H 116 H (98-107) mmol/L Carbon Dioxide 24 12 L 17 L (22-30) mmol/L BUN 50 H 79 H 80 H (7-17) mg/dL Creatinine 1.23 H 2.21 H 2.11 H (0.52-1.04) mg/dL Glucose 111 H 106 H 58 L (74-99) mg/dL Calcium 8.8 8.6 7.3 L (8.4-10.2) mg/dL AST 14 1899 H (14-36) U/L ALT 10 1567 H (4-34) U/L Alkaline Phosphatase 57 48 (38-126) U/L Total Protein 6.0 L 3.1 L (6.3-8.2) g/dL Albumin 3.2 L 1.6 L (3.5-5.0) g/dL Calcium panel 12/12/21 12/13/21 12/13/21 Range/Units 16:18 07:05 10:48 Calcium 8.8 8.6 7.3 L (8.4-10.2) mg/dL Phosphorus 10.0 H* (2.5-4.5) mg/dL Albumin 3.2 L 1.6 L (3.5-5.0) g/dL Pituitary panel 12/12/21 12/13/21 12/13/21 Range/Units 16:18 07:05 10:48 Sodium 141 144 153 H (137-145) mmol/L Potassium 4.0 5.4 H 5.3 H (3.5-5.1) mmol/L Chloride 108 H 117 H 116 H (98-107) mmol/L Carbon Dioxide 24 12 L 17 L (22-30) mmol/L BUN 50 H 79 H 80 H (7-17) mg/dL Creatinine 1.23 H 2.21 H 2.11 H (0.52-1.04) mg/dL Glucose 111 H 106 H 58 L (74-99) mg/dL Calcium 8.8 8.6 7.3 L (8.4-10.2) mg/dL Adrenal panel 12/12/21 12/13/21 12/13/21 Range/Units 16:18 07:05 10:48 Sodium 141 144 153 H (137-145) mmol/L Potassium 4.0 5.4 H 5.3 H (3.5-5.1) mmol/L Chloride 108 H 117 H 116 H (98-107) mmol/L Carbon Dioxide 24 12 L 17 L (22-30) mmol/L BUN 50 H 79 H 80 H (7-17) mg/dL Creatinine 1.23 H 2.21 H 2.11 H (0.52-1.04) mg/dL Glucose 111 H 106 H 58 L (74-99) mg/dL Calcium 8.8 8.6 7.3 L (8.4-10.2) mg/dL Total Bilirubin 0.5 0.7 (0.2-1.3) mg/dL AST 14 1899 H (14-36) U/L ALT 10 1567 H (4-34) U/L Alkaline Phosphatase 57 48 (38-126) U/L Total Protein 6.0 L 3.1 L (6.3-8.2) g/dL Albumin 3.2 L 1.6 L (3.5-5.0) g/dL
[2021-12-13] MEDS: PANTOPRAZOLE 40 MG/10 ML VIAL IVP SCH (15:33)
[2021-12-13 15:40] VITALS: BP 42/19
[2021-12-13 15:41] VITALS: PULSE 0; RESP 0
[2021-12-13] MEDS ORDERED: ATORVASTATIN 40 MG TAB PO SCH (21:00)
--- NOTE | 2021-12-13 23:45 | P.CONS ---
History of Present Illness - Reason for Consult Consult date: 12/13/21 GI bleed Requesting physician: Joon Salcedo - History of Present Illness Concha Sahni is a 81 yo F with PMH GERD, chronic back pain, fibromyalgia who presented to the ED after a syncopal episode at home. She had 2 episodes of coffee ground emesis and then passed out so EMS was called. History obtained via chart review. She also complained of epigastric abdominal pain. No prior history of GI bleed. On initial presentation her vitals were stable, Hgb 7.6, she did receive a unit of blood and on recheck was 9.9. She required IV pain medication through the night with increased O2 requirement to 4 LPM. Her BP and HR remained stable overnight. When I arrived to her room this morning she was noted to be in asystole and Code blue was activated. She was achieved ROSC after aprox 14 mins. Hgb on subsequent recheck 6.0. Her prognosis and likely anoxic brain injury were discussed with family and pt was elected to be DNR. She subsequently shortly after. Review of Systems ROS unobtainable: due to mental status Past Medical History Past Medical History: Asthma, Fibromyalgia, GERD/Reflux, Hearing Disorder / Deafness, Hyperlipidemia, Hypertension, Pneumonia, Renal Disease, Skin Disorder, Thyroid Disorder Additional Past Medical History / Comment(s): ANEMIA (HX OF IRON INFUSIONS), CHRONIC BACK PAIN DDD, BACK INJ,MIGRAINE HEADACHES, STATES "LITTLE SORES" ON HER FACE AT SCALP LINE., [place] (DOES NOT WEAR HER HEARING AIDS),past BLEEDING HEMORRHOIDS (had sx).SINUS,"TOLD ONE KIDNEY SMALLER THAN OTHER AND ONE KIDNEY HAS A CYST ON IT.DIVERTICULOSIS. History of Any Multi-Drug Resistant Organisms: None Reported Past Surgical History: Appendectomy, Heart Catheterization, Hysterectomy, Joint Replacement, Tonsillectomy Additional Past Surgical History / Comment(s): rt knee replacement, madonna cataract.COLONOSCOPY, HEMORRHOIDECTOMY. Past Anesthesia/Blood Transfusion Reactions: Motion Sickness Past Psychological History: No Psychological Hx Reported Smoking Status: Former smoker Past Alcohol Use History: None Reported Past Drug Use History: None Reported - Past Family History Mother Family Medical History: No Reported History Father Family Medical History: Cancer Additional Family Medical History / Comment(s): lung cancer Medications and Allergies Home Medications Medication Instructions Recorded Confirmed Type DULoxetine HCL [Cymbalta] 60 mg PO DAILY 02/04/17 12/12/21 History Ferrous Sulfate [Iron (65 MG 325 mg PO DAILY 02/04/17 12/12/21 History Elemental)] Fluticasone/Salmeterol [Advair 1 puff INHALATION RT-BID 02/04/17 12/12/21 History 500-50 Diskus] Melatonin 5 mg PO HS 02/04/17 12/12/21 History Multivitamins, Thera [Multivitamin 1 tab PO DAILY 02/04/17 12/12/21 History (formulary)] Calcium Carbonate/Vitamin D3 1 tab PO BID 03/21/17 12/12/21 History [Calcium 600-Vit D3 400 Caplet] Magnesium Oxide [Mag-Ox] 250 mg PO DAILY 01/06/18 12/12/21 History Hydrocodone/Acetaminophen [[place] 1 tab PO Q6HR PRN 09/18/21 12/12/21 History 7.5-325] Levothyroxine Sodium 100 mcg PO DAILY 09/18/21 12/12/21 History Montelukast [Singulair] 10 mg PO DAILY 09/18/21 12/12/21 History Nortriptyline [Pamelor] 25 mg PO HS 09/18/21 12/12/21 History Atorvastatin [Lipitor] 40 mg PO HS #30 tab 09/20/21 12/12/21 Rx Clopidogrel [Plavix] 75 mg PO DAILY #30 tab 09/20/21 12/12/21 Rx Metoprolol Tartrate [Lopressor] 25 mg PO BID #60 tab 09/20/21 12/12/21 Rx Pantoprazole [Protonix] 40 mg PO AC-BRKFST #30 tab 09/20/21 12/12/21 Rx amLODIPine [Norvasc] 10 mg PO DAILY #60 tab 09/20/21 12/12/21 Rx Aspirin EC [Ecotrin Low Dose] 81 mg PO DAILY 12/12/21 12/12/21 History Danielle Back And Body 500-32.5mg 2 tab PO Q6H PRN 12/12/21 12/12/21 History Galcanezumab-Gnlm [Emgality 120 mg SQ QMONTHLY 12/12/21 12/12/21 History Syringe] diphenhydrAMINE [Benadryl] 150 mg PO HS PRN 12/12/21 12/12/21 History Allergies Allergy/AdvReac Type Severity Reaction Status Date / Time peanut Allergy Anaphylaxis Verified 12/12/21 18:48 Physical Exam Vitals: Vital Signs Pulse Resp BP Pulse Ox 12/13/21 15:15 0 L 0 L 12/13/21 12:54 0 L 0 L 12/13/21 12:30 102 H 42/19 94 L 12/13/21 12:10 92 18 67/30 91 L 12/13/21 11:22 101 H 22 36/14 100 12/13/21 10:40 57 L 18 112/32 95 12/13/21 09:20 0 L 0 L 12/13/21 06:16 98 30 H 142/33 98 12/13/21 03:58 108 H 20 106/60 98 12/13/21 01:59 114 H 18 102/76 96 12/13/21 00:46 111 H 20 121/68 96 Gen: elderly female. Vitals reviewed HEENT: NC/AT CV: absent heart sounds Lungs: absent breath sounds Neuro: pupils fixed and dilated, absent reflexes Results CBC & Chem 7: 12/13/21 10:48 12/13/21 10:48 Labs: Abnormal Lab Results - Last 24 Hours (Table) 12/13/21 12/13/21 12/13/21 Range/Units 07:05 07:05 10:25 WBC 25.7 H (3.8-10.6) k/uL RBC 3.36 L (3.80-5.40) m/uL Hgb 9.9 L D (11.4-16.0) gm/dL Hct 33.0 L (34.0-46.0) % MCHC 30.1 L (31.0-37.0) g/dL RDW 16.9 H (11.5-15.5) % Neutrophils # (Manual) 21.50 H (1.3-7.7) k/uL Monocytes # (Manual) 1.80 H (0-1.0) k/uL Metamyelocytes # (Man) 1.29 H (0) k/uL Myelocytes # (Manual) (0) k/uL Nucleated RBCs (0-0) /100 WBC PT (9.0-12.0) sec INR (<1.2) ABG pH 7.12 L* (7.35-7.45) ABG pCO2 48 H (35-45) mmHg ABG pO2 397 H (83-108) mmHg ABG HCO3 16 L (21-25) mmol/L ABG Total CO2 17 L (19-24) mmol/L ABG O2 Saturation 99.8 H (94-97) % ABG Lactic Acid (0.5-1.6) mmol/L Sodium (137-145) mmol/L Potassium 5.4 H (3.5-5.1) mmol/L Chloride 117 H (98-107) mmol/L Carbon Dioxide 12 L (22-30) mmol/L BUN 79 H (7-17) mg/dL Creatinine 2.21 H (0.52-1.04) mg/dL Glucose 106 H (74-99) mg/dL Calcium (8.4-10.2) mg/dL Phosphorus (2.5-4.5) mg/dL Magnesium (1.6-2.3) mg/dL AST (14-36) U/L ALT (4-34) U/L Total Protein (6.3-8.2) g/dL Albumin (3.5-5.0) g/dL 12/13/21 12/13/21 12/13/21 Range/Units 10:48 10:48 10:48 WBC 13.6 H (3.8-10.6) k/uL RBC 2.02 L (3.80-5.40) m/uL Hgb 6.0 L* D (11.4-16.0) gm/dL Hct 20.1 L (34.0-46.0) % MCHC 29.8 L (31.0-37.0) g/dL RDW 17.1 H (11.5-15.5) % Neutrophils # (Manual) 11.00 H (1.3-7.7) k/uL Monocytes # (Manual) (0-1.0) k/uL Metamyelocytes # (Man) 0.27 H (0) k/uL Myelocytes # (Manual) 0.14 H (0) k/uL Nucleated RBCs 3 H (0-0) /100 WBC PT 19.1 H (9.0-12.0) sec INR 1.9 H (<1.2) ABG pH (7.35-7.45) ABG pCO2 (35-45) mmHg ABG pO2 (83-108) mmHg ABG HCO3 (21-25) mmol/L ABG Total CO2 (19-24) mmol/L ABG O2 Saturation (94-97) % ABG Lactic Acid (0.5-1.6) mmol/L Sodium 153 H (137-145) mmol/L Potassium 5.3 H (3.5-5.1) mmol/L Chloride 116 H (98-107) mmol/L Carbon Dioxide 17 L (22-30) mmol/L BUN 80 H (7-17) mg/dL Creatinine 2.11 H (0.52-1.04) mg/dL Glucose 58 L (74-99) mg/dL Calcium 7.3 L (8.4-10.2) mg/dL Phosphorus 10.0 H* (2.5-4.5) mg/dL Magnesium 2.9 H (1.6-2.3) mg/dL AST 1899 H (14-36) U/L ALT 1567 H (4-34) U/L Total Protein 3.1 L (6.3-8.2) g/dL Albumin 1.6 L (3.5-5.0) g/dL 12/13/21 Range/Units 10:48 WBC (3.8-10.6) k/uL RBC (3.80-5.40) m/uL Hgb (11.4-16.0) gm/dL Hct (34.0-46.0) % MCHC (31.0-37.0) g/dL RDW (11.5-15.5) % Neutrophils # (Manual) (1.3-7.7) k/uL Monocytes # (Manual) (0-1.0) k/uL Metamyelocytes # (Man) (0) k/uL Myelocytes # (Manual) (0) k/uL Nucleated RBCs (0-0) /100 WBC PT (9.0-12.0) sec INR (<1.2) ABG pH (7.35-7.45) ABG pCO2 (35-45) mmHg ABG pO2 (83-108) mmHg ABG HCO3 (21-25) mmol/L ABG Total CO2 (19-24) mmol/L ABG O2 Saturation (94-97) % ABG Lactic Acid 15.6 H* (0.5-1.6) mmol/L Sodium (137-145) mmol/L Potassium (3.5-5.1) mmol/L Chloride (98-107) mmol/L Carbon Dioxide (22-30) mmol/L BUN (7-17) mg/dL Creatinine (0.52-1.04) mg/dL Glucose (74-99) mg/dL Calcium (8.4-10.2) mg/dL Phosphorus (2.5-4.5) mg/dL Magnesium (1.6-2.3) mg/dL AST (14-36) U/L ALT (4-34) U/L Total Protein (6.3-8.2) g/dL Albumin (3.5-5.0) g/dL Assessment and Plan Plan: 1. Cardiac arrest secondary to GI bleed. Agree with comfort measures. Suspected anoxic brain injury and poor prognosis
--- NOTE | 2021-12-21 13:02 | CDI ---
Documentation Clarification Form Date: 12/21/2021 From: FÉLIX Garcia Admit Date: 12/12/2021 05:45:00 PM Patient Name: Concha Sahni Visit Number: [id number] Discharge Date: 12/13/2021 03:50:00 PM ATTENTION: The Clinical Documentation Specialists (CDI) and [facility] Coding Staff appreciate your assistance in clarifying documentation. Please respond to the clarification below the line at the bottom and electronically sign. The CDI & [facility] Coding staff will review the response and follow-up if needed. Please note: Queries are made part of the Legal Health Record. If you have any questions, please contact the author of this message via ITS. Dr. Joon Salcedo MD GI bleed is documented on the H&P and Consults. Additional clarification regarding the etiology of the GI bleed is requested. Patient was admitted with GI bleed and syncope. She had 2 episodes of coffee ground emesis at home without a prior history of GI bleed. Per ER report the patient was having epigastric abdominal pain. Hemoglobin on admission was 7.6 and she received a unit of blood. H&P: Acute upper GI bleed, exact etiology unclear. Acute blood loss anemia Early in the morning after admission, the patient went into cardiac arrest and was admitted to the ICU. The patient was then made comfort care and shortly after, she . History/risk factors: History of diverticulosis and hemorrhoids CT Abdomen Pelvis: There is no inguinal hernia. There is no free fluid in the pelvis. There is no ascites. There is no free air. There is no evidence of bowel obstruction. Please clarify the etiology of the GI bleed, if known: [ ] GIB due to diverticulosis [ xx ] GIB, etiology unknown [ ] Other, please specify [ ] Unable to determine MTDD
== END 2021-12-13 15:50 | disposition expired | DRG 377 ==
LOC: EC 16:08 → 3SCARD 17:45 → 2SICU 12-13 10:45
PROVIDERS: ADMIT Surgery; ATTEND Surgery
PROC: 30233N1 Transfusion of Nonautologous Red Blood Cells into Peripheral Vein, Percutaneous Approach (ICD-10-PCS; 2021-12-12)
PROC: 03HY32Z Insertion of Monitoring Device into Upper Artery, Percutaneous Approach (ICD-10-PCS; principal; 2021-12-13)
PROC: 4A133B1 Monitoring of Arterial Pressure, Peripheral, Percutaneous Approach (ICD-10-PCS; 2021-12-13)
PROC: 4A133J1 Monitoring of Arterial Pulse, Peripheral, Percutaneous Approach (ICD-10-PCS; 2021-12-13)
PROC: 3E033XZ Introduction of Vasopressor into Peripheral Vein, Percutaneous Approach (ICD-10-PCS; 2021-12-13)
PROC: 02HV33Z Insertion of Infusion Device into Superior Vena Cava, Percutaneous Approach (ICD-10-PCS; 2021-12-13)
PROC: 5A12012 Performance of Cardiac Output, Single, Manual (ICD-10-PCS; 2021-12-13)
PROC: 0BH17EZ Insertion of Endotracheal Airway into Trachea, Via Natural or Artificial Opening (ICD-10-PCS; 2021-12-13)
PROC: 5A1935Z Respiratory Ventilation, Less than 24 Consecutive Hours (ICD-10-PCS; 2021-12-13)
DX: K92.0 Hematemesis (principal); J96.01 Acute respiratory failure with hypoxia; D62 Acute posthemorrhagic anemia; E87.2 Acidosis; G93.1 Anoxic brain damage, not elsewhere classified; N17.9 Acute kidney failure, unspecified; Z51.5 Encounter for palliative care; Z66 Do not resuscitate; E78.5 Hyperlipidemia, unspecified; E87.5 Hyperkalemia; E87.8 Other disorders of electrolyte and fluid balance, not elsewhere classified; I46.8 Cardiac arrest due to other underlying condition; H91.90 Unspecified hearing loss, unspecified ear; I12.9 Hypertensive chronic kidney disease with stage 1 through stage 4 chronic kidney disease, or unspecified chronic kidney disease; N18.9 Chronic kidney disease, unspecified; Z20.822 Contact with and (suspected) exposure to COVID-19; J45.909 Unspecified asthma, uncomplicated; M19.90 Unspecified osteoarthritis, unspecified site; M79.7 Fibromyalgia; K57.90 Diverticulosis of intestine, part unspecified, without perforation or abscess without bleeding; K21.9 Gastro-esophageal reflux disease without esophagitis; Z96.651 Presence of right artificial knee joint; M54.9 Dorsalgia, unspecified; G89.29 Other chronic pain; Z98.42 Cataract extraction status, left eye; Z98.41 Cataract extraction status, right eye; Z79.02 Long term (current) use of antithrombotics/antiplatelets; Z79.82 Long term (current) use of aspirin; Z79.890 Hormone replacement therapy; Z98.890 Other specified postprocedural states; Z79.899 Other long term (current) drug therapy; Z87.891 Personal history of nicotine dependence; Z90.710 Acquired absence of both cervix and uterus; Z80.1 Family history of malignant neoplasm of trachea, bronchus and lung; Z91.010 Allergy to peanuts
CPT/HCPCS: 36415; 70450; 71045; 74018; 74178; 80048; 80053; 82271; 82805; 83605; 83735; 84100; 84484; 85025; 85027; 85610; 85730; 86850; 86900; 86901; 86920; 87635; 92950; 93005; 94002; 94760; 96361; 96374; 99291